=== PATIENT | male | born 1990 | race Caucasian/White ===

== ENCOUNTER 2018-12-22 21:16 | Emergency (ER) | payer OTHER ==
[2018-12-22 21:59] LABS: Absolute Lymphocytes (CBC) 0.9 K/uL (0.7-4.9); Absolute Monocytes 0.4 K/uL (0.1-1.3); Absolute Neutrophil 3.7 K/uL (1.8-8.0); Basophils % 0.2 % (0-1.3); Hematocrit 45.3 % (39.6-49.0); Monocytes % 7.2 % (3.3-12.3); RBC Red Blood Cell Count 5.31 M/uL (4.33-5.43)
[2018-12-22 22:00] LABS: Protime INR 1.13
[2018-12-22 22:17] LABS: ALT/SGPT 25 U/L (12-78); AST/SGOT 12 U/L (15-37); Albumin 4.1 g/dL (3.4-5.0); Alkaline Phosphatase 72 U/L (45-117); BUN Blood Urea Nitrogen 12 mg/dL (7-18); Bicarbonate 27 mmol/L (21-32); Bilirubin Direct 0.2 mg/dL (0-0.2); Bilirubin Total 0.5 mg/dL (0.2-1.0); Glucose Level 227 mg/dL (74-106); Magnesium 2.3 mg/dL (1.8-2.4); NT PRO-BNP 41 pg/mL (<125); Potassium 3.2 mmol/L (3.5-5.1); Protein, Total 7.1 g/dL (6.4-8.2); Sodium Level 140 mmol/L (136-145); Troponin (Emerg Dept Use Only) < 0.02 ng/mL (0.0-0.045)
[2018-12-22] MEDS ORDERED: POTASSIUM CL SA 10 MEQ TAB PO ONE (23:15)
--- NOTE | 2018-12-23 02:10 | ER ---
Nurse's Notes [facility] Name: Ki Alexander Age: 28 yrs Sex: Male : 1990 Arrival Date: 12/22/2018 Time: 21:17 Bed 20 Private MD: Diagnosis: Chest pain, unspecified;Altered mental status, unspecified Presentation: 12/22 21:35 Presenting complaint: Patient states: "I have breathing difficulty that has been going jd3 on for awhile now, but I had a sudden right sided, sharp head pain about 20 min ago that made me dizzy and light headed. I don't remember how I got here, I have a history of seizures. My left arm also feels numb and I am having general weakness.". Transition of care: patient was not received from another setting of care. Onset of symptoms was December 22, 2018. Risk Assessment: Do you want to hurt yourself or someone else? Patient reports no desire to harm self or others. Initial Sepsis Screen: Does the patient meet any 2 criteria? No. Patient's initial sepsis screen is negative. Does the patient have a suspected source of infection? No. Patient's initial sepsis screen is negative. Care prior to arrival: None. 21:35 Method Of Arrival: Wheelchair jd3 21:35 Acuity: ELYSE 3 jd3 Triage Assessment: 22:39 Respiratory: the patient has mild shortness of breath. jd3 Historical: - Allergies: 21:40 Clarithromycin; jd3 21:40 Latex, Natural Rubber; jd3 21:40 Keflex; jd3 - Home Meds: 21:40 aspirin 325 mg Oral tab 1 tab once daily [Active]; Depakote 500 mg Oral TbEC once daily jd3 [Active]; metoprolol tartrate 100 mg Oral tab [Active]; - PMHx: 21:40 Anxiety; mild asthma; Seizures; tetralogy of fallot; TIA; pulmonary valve insuff; jd3 HYPOGLYCEMIA; Bipolar disorder; Arthritis; - PSHx: 21:40 left knee surgery; open heart surgery; pacemaker; right foot surgery; Toni pulmonary jd3 artery stents; - Immunization history:: Adult Immunizations up to date. - Social history:: Smoking status: Patient/guardian denies using tobacco, but has a distant history of tobacco abuse. - Ebola Screening: : Patient negative for fever greater than or equal to 101.5 degrees Fahrenheit, and additional compatible Ebola Virus Disease symptoms. Screenin:52 Abuse screen: Denies threats or abuse. Denies injuries from another. Nutritional ed1 screening: No deficits noted. Tuberculosis screening: No symptoms or risk factors identified. Fall Risk None identified. Assessment: 21:52 General: Appears uncomfortable, Behavior is calm, cooperative. Pain: Complains of pain ed1 in chest Pain does not radiate. Pain currently is 3 out of 10 on a pain scale. Quality of pain is described as aching, Pain began 2-3 days ago. Is continuous. Neuro: Level of Consciousness is awake, alert, obeys commands, Oriented to person, place, time, situation, Seizure activity reported prior to arrival. Cardiovascular: Heart tones present Rhythm is regular. Respiratory: Reports shortness of breath cough that is Airway is patent Respiratory effort is even, unlabored, Respiratory pattern is regular, symmetrical, Breath sounds are clear bilaterally. GI: No signs and/or symptoms were reported involving the gastrointestinal system. : No signs and/or symptoms were reported regarding the genitourinary system. EENT: No signs and/or symptoms were reported regarding the EENT system. Derm: Skin is intact, is healthy with good turgor, Skin is dry, Skin is normal, Skin temperature is warm. Musculoskeletal: Circulation, motion, and sensation intact. 22:38 Reassessment: Patient appears in no apparent distress at this time. No changes from jd3 previously documented assessment. Patient and/or family updated on plan of care and expected duration. Pain level reassessed. Patient is alert, oriented x 3, equal unlabored respirations, skin warm/dry/pink. 22:58 Reassessment: Patient appears in no apparent distress at this time. No changes from jd3 previously documented assessment. Patient and/or family updated on plan of care and expected duration. Pain level reassessed. Patient is alert, oriented x 3, equal unlabored respirations, skin warm/dry/pink. 12/23 00:42 Reassessment: Patient appears in no apparent distress at this time. Patient and/or jd3 family updated on plan of care and expected duration. Pain level reassessed. Patient is alert, oriented x 3, equal unlabored respirations, skin warm/dry/pink. 01:24 Reassessment: Patient appears in no apparent distress at this time. Patient and/or d3 family updated on plan of care and expected duration. Pain level reassessed. Patient is alert, oriented x 3, equal unlabored respirations, skin warm/dry/pink. 03:01 Reassessment: Patient appears in no apparent distress at this time. Patient and/or jd3 family updated on plan of care and expected duration. Pain level reassessed. Patient is alert, oriented x 3, equal unlabored respirations, skin warm/dry/pink. report given to EMS for transfer. Vital Signs: 12/22 21:40 BP 141 / 85; Pulse 100; Resp 18 S; Temp 99.1(O); Pulse Ox 100% on R/A; Weight 68.04 kg [facility] (R); Height 5 ft. 8 in. (172.72 cm) (R); Pain 3/10; 22:38 BP 117 / 77; Pulse 83; Resp 16 S; Pulse Ox 99% on R/A; jd3 22:57 BP 117 / 77; Pulse 74; Resp 16 S; Pulse Ox 97% on R/A; jd3 23:49 BP 122 / 67; Pulse 67; Resp 16 S; Pulse Ox 99% on R/A; jd3 03/ 00:42 BP 115 / 71; Pulse 72; Resp 15 S; Pulse Ox 99% on R/A; jd3 01:24 BP 119 / 79; Pulse 80; Resp 18 S; Pulse Ox 99% on R/A; jd3 02:25 BP 108 / 68; Pulse 65; Resp 15 S; Pulse Ox 100% on R/A; jd3 03 21:40 Body Mass Index 22.81 (68.04 kg, 172.72 cm) [facility] ED Course: 12/22 21:17 Patient arrived in ED. am2 21:22 Carley Adames FNP is PHCP. nh 21:22 Alvino Nichols MD is Attending Physician. nh 21:28 Adeola Jerry, RN is Primary Nurse. ed1 21:38 Triage completed. jd3 21:41 Arm band placed on. jd3 21:52 Patient has correct armband on for positive identification. Bed in low position. Call ed1 light in reach. Side rails up X2. Pulse ox on. NIBP on. 21:52 Initial lab(s) drawn, by me, sent to lab. Inserted saline lock: 20 gauge in right ed1 forearm, using aseptic technique. 21:59 Primary Nurse role handed off by Adeola Jerry, JANETT ed1 22:10 Maninder Camilo, RN is Primary Nurse. jd3 22:14 X-ray completed. Portable x-ray completed in exam room. Patient tolerated procedure mh1 well. 22:14 XRAY Chest (1 view) In Process Unspecified. EDMS 22:[address] kc3 22:39 CT completed. Patient tolerated procedure well. kc3 22:47 CT Head Brain wo Cont In Process Unspecified. EDMS 03/02 02:26 No provider procedures requiring assistance completed. Patient transferred, IV remains jd3 in place. Administered Medications: 12/22 23:07 Drug: Potassium Chloride 40 mEq Route: PO; jd3 12/23 00:05 Follow up: Response: No adverse reaction jd3 Outcome: 02:09 ER care complete, transfer ordered by . ca 03:09 Transferred by ground EMS to [facility], Transfer form completed. jd3 X-rays sent w/ patient. 03:09 Condition: stable 03:09 Instructed on the need for transfer, Demonstrated understanding of instructions. 03:10 Patient left the ED. jd3 Signatures: Dispatcher [employer] EDPA Carley Adames, SUPERINTENDENT RECREATION SUPERINTENDENT RECREATION ca Veronica Sarmiento 1 Adeola Jerry, JANETT RN ed1 Genoveva Malave [facility] Maninder Camilo RN RN jd3 Gardenia Cote 3
--- NOTE | 2018-12-23 02:10 | EDPHYS ---
Physician Documentation [facility] Name: Ki Alexander Age: 28 yrs Sex: Male : 1990 Arrival Date: 12/22/2018 Time: 21:17 Bed 20 Private MD: ED Physician Alvino Nichols HPI: 12/23 02:05 This 28 yrs old Male presents to ER via Wheelchair with complaints of nh Breathing Difficulty. 02:05 The patient has shortness of breath at rest. Onset: The symptoms/episode began/occurred nh gradually, at an unknown time. Duration: The symptoms are chronic. The patient's shortness of breath has no apparent modifying factors. Associated signs and symptoms: The patient has no apparent associated signs or symptoms. Patient has hx of heart murmur. States that he has chest pain and shortness of breath. Also has history of stroke and seizure. States that he is confused and does not know how he got here. Historical: - Allergies: 12/22 21:40 Clarithromycin; jd3 21:40 Latex, Natural Rubber; jd3 21:40 Keflex; jd3 - Home Meds: 21:40 aspirin 325 mg Oral tab 1 tab once daily [Active]; Depakote 500 mg Oral TbEC once daily jd3 [Active]; metoprolol tartrate 100 mg Oral tab [Active]; - PMHx: 21:40 Anxiety; mild asthma; Seizures; tetralogy of fallot; TIA; pulmonary valve insuff; jd3 HYPOGLYCEMIA; Bipolar disorder; Arthritis; - PSHx: 21:40 left knee surgery; open heart surgery; pacemaker; right foot surgery; Toni pulmonary jd3 artery stents; - Immunization history:: Adult Immunizations up to date. - Social history:: Smoking status: Patient/guardian denies using tobacco, but has a distant history of tobacco abuse. - Ebola Screening: : Patient negative for fever greater than or equal to 101.5 degrees Fahrenheit, and additional compatible Ebola Virus Disease symptoms. ROS: 12/23 02:05 Constitutional: Negative for fever, chills, and weight loss, Eyes: Negative for injury, nh pain, redness, and discharge, ENT: Negative for injury, pain, and discharge, Neck: Negative for injury, pain, and swelling, Cardiovascular: Negative for chest pain, palpitations, and edema, Abdomen/GI: Negative for abdominal pain, nausea, vomiting, diarrhea, and constipation, Back: Negative for injury and pain, : Negative for injury, bleeding, discharge, and swelling, MS/Extremity: Negative for injury and deformity, Skin: Negative for injury, rash, and discoloration. Respiratory: Positive for shortness of breath, at rest. Neuro: Positive for altered mental status, dizziness, speech changes. Exam: 02:05 Constitutional: This is a well developed, well nourished patient who is awake, alert, nh and in no acute distress. Head/Face: Normocephalic, atraumatic. Eyes: Pupils equal round and reactive to light, extra-ocular motions intact. Lids and lashes normal. Conjunctiva and sclera are non-icteric and not injected. Cornea within normal limits. Periorbital areas with no swelling, redness, or edema. ENT: Nares patent. No nasal discharge, no septal abnormalities noted. Tympanic membranes are normal and external auditory canals are clear. Oropharynx with no redness, swelling, or masses, exudates, or evidence of obstruction, uvula midline. Mucous membranes moist. Neck: Trachea midline, no thyromegaly or masses palpated, and no cervical lymphadenopathy. Supple, full range of motion without nuchal rigidity, or vertebral point tenderness. No Meningismus. Chest/axilla: Normal chest wall appearance and motion. Nontender with no deformity. No lesions are appreciated. Respiratory: Lungs have equal breath sounds bilaterally, clear to auscultation and percussion. No rales, rhonchi or wheezes noted. No increased work of breathing, no retractions or nasal flaring. Abdomen/GI: Soft, non-tender, with normal bowel sounds. No distension or tympany. No guarding or rebound. No evidence of tenderness throughout. Back: No spinal tenderness. No costovertebral tenderness. Full range of motion. Skin: Warm, dry with normal turgor. Normal color with no rashes, no lesions, and no evidence of cellulitis. 02:05 Cardiovascular: Rate: normal, Rhythm: regular, Pulses: Heart sounds: murmur, systolic, grade 6 over 6, Edema: is not appreciated, JVD: is not appreciated. Vital Signs: 12/22 21:40 BP 141 / 85; Pulse 100; Resp 18 S; Temp 99.1(O); Pulse Ox 100% on R/A; Weight 68.04 kg jd3 (R); Height 5 ft. 8 in. (172.72 cm) (R); Pain 3/10; 22:38 BP 117 / 77; Pulse 83; Resp 16 S; Pulse Ox 99% on R/A; jd3 22:57 BP 117 / 77; Pulse 74; Resp 16 S; Pulse Ox 97% on R/A; jd3 23:49 BP 122 / 67; Pulse 67; Resp 16 S; Pulse Ox 99% on R/A; jd3 03/ 00:42 BP 115 / 71; Pulse 72; Resp 15 S; Pulse Ox 99% on R/A; jd3 01:24 BP 119 / 79; Pulse 80; Resp 18 S; Pulse Ox 99% on R/A; jd3 02:25 BP 108 / 68; Pulse 65; Resp 15 S; Pulse Ox 100% on R/A; jd3 12/22 21:40 Body Mass Index 22.81 (68.04 kg, 172.72 cm) [facility] MDM: 12/22 21:22 Patient medically screened. la 12/23 02:05 Data reviewed: vital signs, nurses notes, lab test result(s), radiologic studies, I la have discussed the patient's presentation/case with the attending Emergency Department Physician;. 12/22 21:37 Order name: Basic Metabolic Panel la 12/22 21:37 Order name: CBC with Diff la 12/22 21:37 Order name: LFT's la 12/22 21:37 Order name: Magnesium la 12/22 21:37 Order name: NT PRO-BNP la 12/22 21:37 Order name: PT-INR; Complete Time: 22:26 la 12/22 21:37 Order name: Troponin (emerg Dept Use Only); Complete Time: 22:26 la 12/22 21:37 Order name: XRAY Chest (1 view) la 12/22 21:38 Order name: Basic Metabolic Panel; Complete Time: 22:26 EDWI 12/22 21:38 Order name: CBC with Automated Diff; Complete Time: 22:26 EDWI 12/22 21:38 Order name: Liver (Hepatic) Function; Complete Time: 22:26 EDWI 12/22 21:38 Order name: Magnesium; Complete Time: 22:26 EDWI 12/22 21:38 Order name: NT PRO-BNP; Complete Time: 22:26 EDWI 12/22 22:25 Order name: CT Head Brain wo Cont la 12/22 21:37 Order name: EKG; Complete Time: 21:38 la 12/22 21:37 Order name: Cardiac monitoring; Complete Time: 22:10 la 12/22 21:37 Order name: EKG - Nurse/Tech; Complete Time: 22:10 la 12/22 21:37 Order name: IV Saline Lock; Complete Time: 21:55 la 12/22 21:37 Order name: Labs collected and sent; Complete Time: :55 la 12/22 21:37 Order name: O2 Per Protocol; Complete Time: :55 la 12/22 21:37 Order name: O2 Sat Monitoring; Complete Time: :55 la Administered Medications: 12/22 23:07 Drug: Potassium Chloride 40 mEq Route: PO; jd3 12/23 00:05 Follow up: Response: No adverse reaction jd3 Disposition: 12/23/18 02:[address] [facility]. Diagnosis are Chest pain, unspecified, Altered mental status, unspecified. - Reason for transfer: Higher level of care. - Accepting physician is [facility]. - Condition is Stable. - Problem is new. - Symptoms are unchanged. Addendum: 12/27/2018 11:27 Co-signature as Attending Physician, Alvino Nichols MD I agree with the assessment and c gil plan of care. Signatures: Dispatcher [employer] Alvino Chen MD MD cha Cronk, Niki, [employer] la Maninder Camilo RN RN jd3 Corrections: (The following items were deleted from the chart) 12/23 03:10 02:09 12/23/2018 02:[address] [facility]. Diagnosis is jd3 Chest pain, unspecified; Altered mental status, unspecified. Reason for transfer: Higher level of care. Accepting physician is [facility]. Condition is Stable. Problem is new. Symptoms are unchanged. nh
--- NOTE | 2018-12-24 10:13 | EKG ---
Test Date: 2018-12-22 Test Time: 22:05:19 Turbine Room Attendant: MATTI MEASUREMENT RESULTS: Intervals: Rate: 89 [place]: 148 QRSD: 160 QT: 398 QTc: 484 [place]: P: 29 [place]: 148 QRS: -39 T: 94 INTERPRETIVE STATEMENTS: Normal sinus rhythm with sinus arrhythmia Left axis deviation Right bundle branch block T wave abnormality, consider lateral ischemia Abnormal ECG Compared to ECG 05/10/2016 21:38:11 Left-axis deviation now present T-wave abnormality now present Possible ischemia now present Electronically Signed On 12-24-18 10:12:33 [employer] by Flaco Kessler
--- NOTE | 2018-12-25 11:00 | RAD REPORT ---
EXAM DESCRIPTION: RAD - Chest Single View - 12/22/2018 10:14 pm EXAM DESCRIPTION: Chest Single View CLINICAL HISTORY: 28 years Male, COUGH COMPARISON: None. FINDINGS: Cardiac pacer noted. No consolidation. No pneumothorax. No significant pleural effusion. Cardiac silhouette appears normal in size. Stents within the mediastinum are noted. Sternotomy changes are demonstrated. There is mild levocurvature of the upper thoracic spine. IMPRESSION: No acute findings. Electronically signed by: Josh Lange MD 12/23/2018 2:20 AM PROFESSIONAL BONDSMAN Due to temporary technical issues with the PACS/Fluency reporting system, reports are being signed by the in house radiologist as a courtesy to ensure prompt reporting. The interpreting radiologist is f ully responsible for the content of the report.
--- NOTE | 2018-12-25 11:02 | RAD REPORT ---
EXAM DESCRIPTION: CT - Head Brain Wo Cont - 12/22/2018 10:47 pm CLINICAL HISTORY: 28 years Male, CONFUSED TECHNIQUE: 5 mm axial images were obtained along with 3 mm reformatted coronal and sagittal images. This exam was performed according to our departmental dose-optimization program, which includes autom ated exposure control, adjustment of the mA and/or kV according to patient size and/or use of iterati ve reconstruction technique. COMPARISON: None. FINDINGS: No acute abnormal extracerebral fluid collections are demonstrated. The cortical sulci, ventricles, and cisterns are within normal limits. There are no areas of altered attenuation identified to suggest acute hemorrhage, infarction, or mass lesion. The visualized portions of the paranasal sinuses and mastoid air cells are clear. IMPRESSION: 1. Normal study. Electronically signed by: Praveen Pierce MD 12/22/2018 10:58 PM COAGULATING OPERATOR Due to temporary technical issues with the PACS/Fluency reporting system, reports are being signed by the in house radiologist as a courtesy to ensure prompt reporting. The interpreting radiologist is f ully responsible for the content of the report.
== END 2018-12-23 03:10 | disposition short-term general hospital (02) ==
LOC: ER 21:16
DX: R07.9 Chest pain, unspecified (principal); G40.909 Epilepsy, unspecified, not intractable, without status epilepticus; F41.9 Anxiety disorder, unspecified; F31.9 Bipolar disorder, unspecified; Q21.3 Tetralogy of Fallot; Z79.82 Long term (current) use of aspirin; Z86.73 Personal history of transient ischemic attack (TIA), and cerebral infarction without residual deficits; Z88.1 Allergy status to other antibiotic agents; Z88.3 Allergy status to other anti-infective agents; Z95.0 Presence of cardiac pacemaker; Z91.040 Latex allergy status; Z91.048 Other nonmedicinal substance allergy status; Z95.818 Presence of other cardiac implants and grafts
CPT/HCPCS: 36415; 70450; 71045; 80048; 80076; 83735; 83880; 84484; 85025; 85610; 93005; 99285

== ENCOUNTER 2021-11-23 18:34 | Emergency (ER) | payer OTHER ==
--- NOTE | 2021-11-23 19:08 | RAD REPORT ---
EXAM DESCRIPTION: CT - CTHCSPWOC - 11/23/2021 6:59 pm CLINICAL HISTORY: Trauma, head and neck injury. Seizure COMPARISON: No comparisons TECHNIQUE: Axial 5 mm thick images of the head were obtained. Axial 2 mm thick images of the cervical spine were obtained with sagittal and coronal reconstruction images generated and reviewed. All CT scans are performed using dose optimization technique as appropriate and may include automated exposure control or mA/KV adjustment according to patient size. FINDINGS: CT HEAD WITHOUT CONTRAST: No acute hemorrhage, hydrocephalus or extra-axial collection is identified.No areas of brain edema or midline shift. The paranasal sinuses and mastoids are clear.The calvarium is intact. CT CERVICAL SPINE WITHOUT CONTRAST: No fracture or subluxation.No prevertebral soft tissues swelling is identified. Pacemaker leads. Mild cervical spondylosis with scattered uncovertebral joint hypertrophy. Partially imaged cervicothoraci c scoliosis is present. IMPRESSION: No acute intracranial or cervical spine findings.
[2021-11-23 19:43] LABS: MPV 7.7 fL (7.6-11.3); RBC Red Blood Cell Count 4.97 M/uL (4.33-5.43)
[2021-11-23 21:09] LABS: BUN Blood Urea Nitrogen 13 mg/dL (7-18); Bicarbonate 28 mmol/L (21-32); Glucose Level 89 mg/dL (74-106); Potassium 4.5 mmol/L (3.5-5.1); Sodium Level 140 mmol/L (136-145)
[2021-11-23 21:19] LABS: Valproic Acid (Depakene) Level 16.2 ug/mL (50-100)
[2021-11-23] MEDS ORDERED: NA CHLORIDE 0.9% 100 ML ONE (21:44)
[2021-11-23] MEDS ORDERED: DIVALPROEX DR 250 MG TAB PO ONE (21:44)
[2021-11-23] MEDS ORDERED: VALPROATE NA 500 MG/5 ML INJ IV ONE (21:44)
--- NOTE | 2021-11-23 22:20 | EDPHYS ---
Physician Documentation [facility] Name: Ki Alexander Age: 31 yrs Sex: Male : 1990 Arrival Date: 11/23/2021 Time: 18:38 Bed 4 Private MD: ED Physician Bryson Martinez HPI: 11/23 19:10 This 31 yrs old Male presents to ER via EMS with complaints of Seizure. pm1 19:10 The patient presents after having a single isolated seizure, the episode(s) was pm1 witnessed, by family, , She caught him when he had a seizure and guided him to the ground. Character of seizure(s): Motor activity: generalized, shaking all over, Incontinence: none, Apnea: the patient did not experience apnea, Circulation: the patient did not experience evidence of pulse disturbance. Seizure onset: just prior to arrival. Context: occurred at home, occurred while the patient was standing, Contributing factors: decreased depakote intake for the past 1 week. Seizure Hx: Seizure medications: Depakote. Associated injury: The patient did not suffer any apparent associated injury. EMS care: none. Current symptoms: headache, that is mild. The patient has experienced similar episodes in the past, several times, with the last episode occurring many years ago. The patient has not recently seen a physician. Historical: - Allergies: 18:44 Clarithromycin; ph 18:44 Keflex; ph 18:44 Latex, Natural Rubber; ph - Home Meds: 18:44 Depakote 750 Oral TbEC 1 tab once daily [Active]; metoprolol tartrate 25 mg oral tab ph once daily [Active]; citalopram 10 mg tab 1 tab once daily [Active]; aspirin 81 mg Oral chew 1 tab once daily [Active]; - PMHx: 18:44 Anxiety; Arthritis; Bipolar disorder; HYPOGLYCEMIA; mild asthma; pulmonary valve ph insuff; Seizures; tetralogy of fallot; TIA; Glaucoma; - PSHx: 18:44 Heart sx; ph - Immunization history:: Adult Immunizations up to date. - Social history:: Smoking status: Patient denies any tobacco usage or history of. ROS: 19:10 Constitutional: Negative for fever, chills, and weight loss, Cardiovascular: Negative pm1 for chest pain, palpitations, and edema, Respiratory: Negative for shortness of breath, cough, wheezing, and pleuritic chest pain, Abdomen/GI: Negative for abdominal pain, nausea, vomiting, diarrhea, and constipation, MS/Extremity: Negative for injury and deformity, Skin: Negative for injury, rash, and discoloration. 19:10 Neuro: Positive for headache, seizure activity. 19:10 All other systems are negative. Exam: 19:10 Constitutional: This is a well developed, well nourished patient who is awake, alert, pm1 and in no acute distress. Head/Face: Normocephalic, atraumatic. Neck: Trachea midline, no thyromegaly or masses palpated, and no cervical lymphadenopathy. Supple, full range of motion without nuchal rigidity, or vertebral point tenderness. No Meningismus. 19:10 Skin: Warm, dry with normal turgor. Normal color with no rashes, no lesions, and no evidence of cellulitis. MS/ Extremity: Pulses equal, no cyanosis. Neurovascular intact. Full, normal range of motion. 19:10 Cardiovascular: Exam negative for acute changes, Rate: normal, Rhythm: regular, Pulses: no pulse deficits are appreciated, Heart sounds: normal, normal S1and S2. 19:10 Respiratory: Exam negative for acute changes, respiratory distress, shortness of breath, Breath sounds: are clear throughout. 19:10 Neuro: Exam negative for acute changes, Orientation: is normal, Mentation: is normal, Motor: is normal, moves all fours. Vital Signs: 18:40 BP 123 / 80; Pulse 72; Resp 18; Temp 97.6; Pulse Ox 100% on R/A; Weight 68.95 kg; ph Height 5 ft. 8 in. (172.72 cm); 23:15 BP 119 / 74; Pulse 68; Resp 17 S; Pulse Ox 100% on R/A; Pain 0/10; lg3 18:40 Body Mass Index 23.11 (68.95 kg, 172.72 cm) ph MDM: 18:42 Patient medically screened. pm1 22:17 Data reviewed: vital signs. Data interpreted: Pulse oximetry: on room air is 100 %. pm1 Interpretation: normal. Counseling: I had a detailed discussion with the patient and/or guardian regarding: the historical points, exam findings, and any diagnostic results supporting the discharge/admit diagnosis, lab results, radiology results, the need for outpatient follow up, a neurologist, to return to the emergency department if symptoms worsen or persist or if there are any questions or concerns that arise at home. 22:17 ED course: Patient's valproic acid level is below therapeutic level because he has been pm1 taking a lower than prescribed dose for the past 1 week. Patient is supposed to be taking 750 mg and he has been taking 500 mg . 11/23 18:48 Order name: Depakote; Complete Time: 21:27 pm1 11/23 18:48 Order name: CBC w/o diff; Complete Time: 19:53 pm1 11/23 18:48 Order name: CT Head C Spine; Complete Time: 19:10 pm1 11/23 18:48 Order name: BMP; Complete Time: 21:27 pm1 11/23 20:10 Order name: Glucose, Ancillary Testing; Complete Time: 20:11 EDMS 11/23 18:48 Order name: EKG; Complete Time: 18:49 pm1 11/23 18:48 Order name: EKG - Nurse/Tech; Complete Time: 19:19 pm1 11/23 18:48 Order name: IV Saline Lock; Complete Time: 19:19 pm1 Administered Medications: 21:52 Drug: Depakote (divalproex) 500 mg Route: PO; sm5 23:17 Follow up: Response: No adverse reaction lg3 21:52 Drug: Valproic Acid 500 mg Route: IV; Rate: calculated rate; Infused Over: 60 mins; sm5 Site: left hand; 23:17 Follow up: IV Status: Completed infusion; IV Intake: 100ml lg3 23:17 Follow up: Response: No adverse reaction lg3 Disposition: 11/24 06:59 Co-signature as Attending Physician, Bryson Martinez MD I agree with the assessment and rn plan of care. Disposition Summary: 11/23/21 22:19 Discharge Ordered Location: Home pm1 Problem: new pm1 Symptoms: have improved pm1 Condition: Stable pm1 Diagnosis - Other seizures pm1 Followup: pm1 - With: Emergency Department - When: As needed - Reason: Worsening of condition Followup: pm1 - With: Private Physician - When: 2 - 3 days - Reason: Recheck today's complaints, Continuance of care, Re-evaluation by your physician Discharge Instructions: - Discharge Summary Sheet pm1 - Seizure, Adult pm1 Forms: - Medication Reconciliation Form pm1 - Thank You Letter pm1 - Antibiotic Education pm1 - Prescription Opioid Use pm1 Signatures: Dispatcher [employer] EDBryson Sequeira MD MD rn Hall, Patricia, RN RN ph Marinas, Patrick, NP BALANCE STAFF STAKER pm1 Keyonna Workman RN RN sm5 Aruna Ryan RN lg3
--- NOTE | 2021-11-23 22:20 | ER ---
Nurse's Notes [facility] Name: Ki Alexander Age: 31 yrs Sex: Male : 1990 Arrival Date: 11/23/2021 Time: 18:38 Bed 4 Private MD: Diagnosis: Other seizures Presentation: 11/23 18:40 Chief complaint: EMS states: Pt had a witnessed seizure, lasted approx 30 seconds, has ph hx of seizures, the last one was in 2019. Pt A\T\O upon EMS arrival VS WNL. Coronavirus screen: Vaccine status: Patient reports receiving the 2nd dose of the covid vaccine. Ebola Screen: No symptoms or risks identified at this time. Initial Sepsis Screen: Does the patient meet any 2 criteria? No. Patient's initial sepsis screen is negative. Does the patient have a suspected source of infection? No. Patient's initial sepsis screen is negative. Risk Assessment: Do you want to hurt yourself or someone else? Patient reports no desire to harm self or others. 18:40 Method Of Arrival: EMS: [facility] ph 18:40 Acuity: ELYSE 3 ph Historical: - Allergies: 18:44 Clarithromycin; ph 18:44 Keflex; ph 18:44 Latex, Natural Rubber; ph - Home Meds: 18:44 Depakote 750 Oral TbEC 1 tab once daily [Active]; metoprolol tartrate 25 mg oral tab ph once daily [Active]; citalopram 10 mg tab 1 tab once daily [Active]; aspirin 81 mg Oral chew 1 tab once daily [Active]; - PMHx: 18:44 Anxiety; Arthritis; Bipolar disorder; HYPOGLYCEMIA; mild asthma; pulmonary valve ph insuff; Seizures; tetralogy of fallot; TIA; Glaucoma; - PSHx: 18:44 Heart sx; ph - Immunization history:: Adult Immunizations up to date. - Social history:: Smoking status: Patient denies any tobacco usage or history of. Screenin:47 Abuse screen: Denies threats or abuse. Denies injuries from another. Nutritional ph screening: No deficits noted. Tuberculosis screening: No symptoms or risk factors identified. Fall Risk No fall in past 12 months (0 pts). Secondary diagnosis (15 points) seizures, IV access (20 points). Ambulatory Aid- None/Bed Rest/Nurse Assist (0 pts). Gait- Normal/Bed Rest/Wheelchair (0 pts) Mental Status- Oriented to own ability (0 pts). Total Trinidad Fall Scale indicates Low Risk Score (25-44 pts). Fall prevention measures have been instituted. Side Rails Up X 2 Placed close to Nursing Station Frequent Obs/Assesments occuring As available Patient and Family Educated on Fall Prevention Program and strategies. Assessment: 18:49 General: Appears in no apparent distress. comfortable, well groomed, Behavior is ph cooperative, appropriate for age, anxious, Denies fever, feeling ill. Pain: Complains of pain in head and neck. Neuro: Level of Consciousness is awake, alert, obeys commands, Oriented to person, place, time, situation, Seizure activity reported prior to arrival. Cardiovascular: Capillary refill < 3 seconds in bilateral fingers Patient's skin is warm and dry. Respiratory: Airway is patent Respiratory effort is even, unlabored, Respiratory pattern is regular, symmetrical. GI: No signs and/or symptoms were reported involving the gastrointestinal system. Derm: Skin is intact, is healthy with good turgor, Skin is pink, warm \T\ dry. Musculoskeletal: Circulation, motion, and sensation intact. Range of motion: intact in all extremities. Vital Signs: 18:40 BP 123 / 80; Pulse 72; Resp 18; Temp 97.6; Pulse Ox 100% on R/A; Weight 68.95 kg; ph Height 5 ft. 8 in. (172.72 cm); 23:15 BP 119 / 74; Pulse 68; Resp 17 S; Pulse Ox 100% on R/A; Pain 0/10; lg3 18:40 Body Mass Index 23.11 (68.95 kg, 172.72 cm) ph ED Course: 18:38 Patient arrived in ED. ss 18:40 Kendal Singh, JANETT is Primary Nurse. ph 18:42 Jeancarlos Herman NP is PHCP. pm1 18:42 Bryson Martinez MD is Attending Physician. pm1 18:44 Triage completed. ph 18:47 Arm band placed on Patient placed in an exam room, on a stretcher, on pulse oximetry. ph 18:48 Patient has correct armband on for positive identification. Bed in low position. Call ph light in reach. Side rails up X2. Pulse ox on. NIBP on. Door closed. Noise minimized. Warm blanket given. Verbal reassurance given. 18:59 CT Head C Spine In Process Unspecified. EDMS 19:18 Inserted saline lock: 20 gauge in left hand, using aseptic technique. Blood collected. [facility] 19:19 BMP Sent. 5 19:19 CBC w/o diff Sent. 5 19:19 Depakote Sent. 5 21:19 Primary Nurse role handed off by Kendal Singh RN mw2 21:21 rAuna Ryan, RN is Primary Nurse. lg3 23:16 No provider procedures requiring assistance completed. IV discontinued, intact, lg3 bleeding controlled, No redness/swelling at site. Pressure dressing applied. Administered Medications: 21:52 Drug: Depakote (divalproex) 500 mg Route: PO; 5 23:17 Follow up: Response: No adverse reaction 3 21:52 Drug: Valproic Acid 500 mg Route: IV; Rate: calculated rate; Infused Over: 60 mins; 5 Site: left hand; 23:17 Follow up: IV Status: Completed infusion; IV Intake: 100ml 3 23:17 Follow up: Response: No adverse reaction lg3 Intake: 23:17 IV: 100ml; Total: 100ml. lg3 Outcome: 22:19 Discharge ordered by MD. pm1 23:16 Discharged to home via wheelchair, with family. lg3 23:16 Condition: good 23:16 Discharge instructions given to patient, Instructed on discharge instructions, follow up and referral plans. 23:17 Patient left the ED. lg3 Signatures: Dispatcher [employer] EDMS Antonella Neumann RN RN Kendal Singh RN RN Jeancarlos Gonzalez, AUREA CHEMICAL CHECKER pm1 Sukumar Garcia 2 Aruna Ryan, JANETT RN lg3 Keyonna Wrokman, RN RN sm5
[2021-11-23 23:24] VITALS: TEMP 97.6; O2SAT 100
[2021-11-23 23:25] VITALS: BP 119/74
--- NOTE | 2021-11-24 08:15 | EKG ---
Test Date: 2021-11-23 Test Time: 19:13:26 Labor Gang Supervisor: DENIS MEASUREMENT RESULTS: Intervals: Rate: 59 AZ: 134 QRSD: 144 QT: 434 QTc: 429 [place]: P: 35 AZ: 134 QRS: 40 T: 122 INTERPRETIVE STATEMENTS: Poor data quality, interpretation may be adversely affected Sinus bradycardia with premature atrial complexes with aberrant conduction Right bundle branch block T wave abnormality, consider lateral ischemia Abnormal ECG Compared to ECG 12/22/2018 22:05:19 Atrial premature complex(es) now present Aberrant conduction of supraventricular beat(s) now present Sinus rhythm no longer present Sinus arrhythmia no longer present Left-axis deviation no longer present T-wave abnormality still present Possible ischemia still present Electronically Signed On 11-24-21 08:13:45 SCRAP METAL COLLECTOR by Flaco Kessler
--- NOTE | 2021-11-24 17:41 | EKG ---
Test Date: 2021-11-23 Test Time: 19:14:11 Restaurant Assistant Manager: DENIS MEASUREMENT RESULTS: Intervals: Rate: 62 MD: 138 QRSD: 144 QT: 438 QTc: 444 [place]: P: 22 MD: 138 QRS: 36 T: 85 INTERPRETIVE STATEMENTS: Normal sinus rhythm Right bundle branch block T wave abnormality, consider lateral ischemia Abnormal ECG Compared to ECG 11/23/2021 19:13:26 Sinus bradycardia no longer present Atrial premature complex(es) no longer present Aberrant conduction of supraventricular beat(s) no longer present T-wave abnormality still present Possible ischemia still present Electronically Signed On 11-24-21 17:40:23 COAT EXAMINER by Flaco Kessler
== END 2021-11-23 23:17 | disposition home or self-care (01) ==
LOC: ER 18:34
DX: G40.89 Other seizures (principal); Q21.3 Tetralogy of Fallot; H40.9 Unspecified glaucoma; F41.9 Anxiety disorder, unspecified; J45.909 Unspecified asthma, uncomplicated; F31.9 Bipolar disorder, unspecified; M19.90 Unspecified osteoarthritis, unspecified site; Z88.3 Allergy status to other anti-infective agents; Z91.014 Allergy to mammalian meats; Z86.73 Personal history of transient ischemic attack (TIA), and cerebral infarction without residual deficits
CPT/HCPCS: 36415; 70450; 72125; 80048; 80164; 82947; 85027; 93005; 96365; 99284

== ENCOUNTER 2022-06-12 16:33 | Emergency (ER) | payer OTHER ==
[2022-06-12] MEDS ORDERED: MORPHINE 4 MG/ML SYR ONE (18:33)
--- NOTE | 2022-06-12 18:56 | RAD REPORT ---
EXAM DESCRIPTION: RAD - Pelvis - 06/12/2022 6:17 pm CLINICAL HISTORY: PAIN fall COMPARISON: Hip Left 2 View dated 06/12/2022 TECHNIQUE: AP imaging of the pelvis was obtained. FINDINGS: No fracture of the bony pelvis. No fracture, dislocation or other acute hip joint finding. No significant SI joint findings. No soft tissue abnormality. IMPRESSION: Negative pelvis for acute or significant findings.
--- NOTE | 2022-06-12 18:57 | RAD REPORT ---
EXAM DESCRIPTION: RAD - Hip Left 2 View - 06/12/2022 6:17 pm CLINICAL HISTORY: PAIN COMPARISON: Pelvis dated 06/12/2022 FINDINGS: AP and frogleg views of the left hip were obtained. There is no fracture or dislocation. No acute or destructive bony process seen. No soft tissue abnormality. IMPRESSION: Negative left hip examination for acute or significant findings.
--- NOTE | 2022-06-12 19:21 | ER ---
Nurse's Notes [facility] Name: Ki Alexander Age: 32 yrs Sex: Male : 1990 Arrival Date: 06/12/2022 Time: 16:35 Bed 11 Private MD: Dusty Sequeira Diagnosis: Pain in left hip;Fall on same level, unspecified Presentation: 06/12 17:01 Chief complaint: Patient states: Pt reports he was walking his big dog outside by the 3 collar and felt his left hip pop out of socket causing him to fall to the ground, landing on his left hip which caused the hip to "pop back into place.". Coronavirus screen: Vaccine status: Patient reports receiving the 2nd dose of the covid vaccine. Client denies travel out of the [place] in the last 14 days. Ebola Screen: Patient negative for fever greater than or equal to 101.5 degrees Fahrenheit, and additional compatible Ebola Virus Disease symptoms Patient denies exposure to infectious person. Patient denies travel to an Ebola-affected area in the 21 days before illness onset. No symptoms or risks identified at this time. Initial Sepsis Screen: Does the patient meet any 2 criteria? No. Patient's initial sepsis screen is negative. Does the patient have a suspected source of infection? No. Patient's initial sepsis screen is negative. Risk Assessment: Do you want to hurt yourself or someone else? Patient reports no desire to harm self or others. Onset of symptoms was June 12, 2022 at 12:00. 17:01 Method Of Arrival: Ambulatory 3 17:01 Acuity: ELYSE 3 kb3 Triage Assessment: 17:07 General: Appears in no apparent distress. uncomfortable, Behavior is calm, cooperative. kb3 Pain: Complains of pain in left hip Pain does not radiate. Pain currently is 9 out of 10 on a pain scale. Quality of pain is described as sharp, Pain began suddenly. Historical: - Allergies: 17:05 Clarithromycin; kb3 17:05 Keflex; kb3 17:05 Latex, Natural Rubber; kb3 - Home Meds: 17:05 aspirin 81 mg Oral chew 1 tab once daily [Active]; citalopram 10 mg tab 1 tab once kb3 daily [Active]; Depakote 750 Oral TbEC 1 tab once daily [Active]; - PMHx: 17:05 Anxiety; Arthritis; Bipolar disorder; Glaucoma; HYPOGLYCEMIA; mild asthma; pulmonary kb3 valve insuff; Seizures; tetralogy of fallot; TIA; Bilateral hip dysplasia; - PSHx: 17:05 heart SX; kb3 - Immunization history:: Adult Immunizations up to date, Client reports receiving the 2nd dose of the Covid vaccine, Last tetanus immunization: up to date. - Social history:: Smoking status: Patient denies any tobacco usage or history of. Patient/guardian denies using alcohol, street drugs. Screenin:37 Abuse screen: Denies threats or abuse. Denies injuries from another. Nutritional iw screening: No deficits noted. Tuberculosis screening: No symptoms or risk factors identified. Fall Risk None identified. Fall in past 12 months (25 points). Assessment: 18:36 General: Appears in no apparent distress. Behavior is calm, cooperative. Pain: iw Complains of pain in left leg and left hip. Neuro: Onofre Agitation-Sedation Scale (RASS): 0 - Alert and Calm Level of Consciousness is awake, alert, obeys commands. Cardiovascular: Patient's skin is warm and dry. Respiratory: Respiratory effort is even, unlabored, Respiratory pattern is regular, symmetrical. Derm: Skin is intact, is healthy with good turgor. Musculoskeletal: Range of motion: intact in all extremities, Reports pain in left hip. Vital Signs: 17:01 BP 109 / 73; Pulse 91; Resp 18; Temp 98.3; Pulse Ox 100% ; Weight 66.68 kg; Height 5 kb3 ft. 7 in. (170.18 cm); Pain 8/10; 19:44 BP 107 / 71; Pulse 80; Resp 16; Pulse Ox 100% ; Pain 3/10; kb3 17:01 Body Mass Index 23.02 (66.68 kg, 170.18 cm) kb3 ED Course: 16:35 Patient arrived in ED. am2 16:35 Dusty Sequeira MD is Private Physician. am2 16:42 Alvino Thomson PA is PHCP. cp 16:42 Carol Fang MD is Attending Physician. cp 17:05 Triage completed. kb3 17:07 Arm band placed on right wrist. kb3 17:47 Kim Sanchez, JANETT is Primary Nurse. iw 18:19 XRAY Hip LEFT 2 view In Process Unspecified. EDMS 18:19 XRAY Pelvis In Process Unspecified. EDMS 18:37 Patient did not have IV access during this emergency room visit. iw 19:00 Patient has correct armband on for positive identification. kb3 19:00 No provider procedures requiring assistance completed. kb3 Administered Medications: 18:32 Drug: morphine 4 mg Route: IM; Site: right deltoid; iw 19:46 Follow up: Response: No adverse reaction; Pain is decreased kb3 Medication: 19:44 VIS not applicable for this client. kb3 Outcome: 19:00 Discharged to home via wheelchair, with crutches. kb3 19:00 Condition: stable 19:00 Discharge instructions given to patient, family, Instructed on discharge instructions, follow up and referral plans. medication usage, crutch walking, Demonstrated understanding of instructions, follow-up care, medications, crutch walking, Prescriptions given X 1. 19:21 Discharge ordered by . flako 19:46 Patient left the ED. kb3 Signatures: Dispatcher [employer] EDKim Saenz, RN RN iw Alvino Thomson, MANN PA Genoveva Mcghee am2 Brandy Segal, RN RN kb3 Corrections: (The following items were deleted from the chart) 17:07 17:05 Home Meds: metoprolol tartrate 25 mg Oral tab once daily; kb3 kb3
--- NOTE | 2022-06-12 19:22 | EDPHYS ---
Physician Documentation [facility] Name: Ki Alexander Age: 32 yrs Sex: Male : 1990 Arrival Date: 06/12/2022 Time: 16:35 Bed 11 Private MD: Dusty Sequeira ED Physician Carol Fang HPI: 06/12 18:00 This 32 yrs old Male presents to ER via Ambulatory with complaints of Fall Injury, Hip cp Pain. 18:00 The patient or guardian reports an injury, pain. cp 18:00 that occurred at home, sustained from a fall, There is no obvious deformity, The cp patient is able to ambulate with assistance. The complaints affect the left hip. Onset: The symptoms/episode began/occurred just prior to arrival. Associated signs and symptoms: Loss of consciousness: the patient experienced no loss of consciousness, Pertinent negatives: abdominal pain, lower back pain. 18:00 Patient reports while stopping dogs from fighting, fell to ground and landed on left cp hip. Reports history of chronic left hip. Historical: - Allergies: 17:05 Clarithromycin; kb3 17:05 Keflex; kb3 17:05 Latex, Natural Rubber; kb3 - Home Meds: 17:05 aspirin 81 mg Oral chew 1 tab once daily [Active]; citalopram 10 mg tab 1 tab once kb3 daily [Active]; Depakote 750 Oral TbEC 1 tab once daily [Active]; - PMHx: 17:05 Anxiety; Arthritis; Bipolar disorder; Glaucoma; HYPOGLYCEMIA; mild asthma; pulmonary kb3 valve insuff; Seizures; tetralogy of fallot; TIA; Bilateral hip dysplasia; - PSHx: 17:05 heart SX; kb3 - Immunization history:: Adult Immunizations up to date, Client reports receiving the 2nd dose of the Covid vaccine, Last tetanus immunization: up to date. - Social history:: Smoking status: Patient denies any tobacco usage or history of. Patient/guardian denies using alcohol, street drugs. ROS: 18:05 Constitutional: Negative for body aches, chills, fever, poor PO intake. cp 18:05 Eyes: Negative for injury, pain, redness, and discharge. cp 18:05 Neck: Negative for pain with movement, pain at rest, stiffness. 18:05 Respiratory: Negative for cough, shortness of breath, wheezing. 18:05 Abdomen/GI: Negative for abdominal pain, nausea, vomiting, and diarrhea. 18:05 Back: Negative for pain at rest, pain with movement. 18:05 MS/extremity: Positive for pain, tenderness, of the left hip, Negative for decreased range of motion, deformity, paresthesias. 18:05 Neuro: Negative for altered mental status, headache, weakness. 18:05 All other systems are negative. Exam: 18:10 Constitutional: The patient appears in no acute distress, alert, awake, non-toxic, well cp developed, well nourished, uncomfortable. 18:10 Head/Face: Normocephalic, atraumatic. cp 18:10 Eyes: Periorbital structures: appear normal, Conjunctiva: normal, no exudate, no cp injection, Sclera: no appreciated abnormality, Lids and lashes: appear normal, bilaterally. 18:10 ENT: External ear(s): are unremarkable, Nose: is normal, Mouth: Lips: moist, Oral cp mucosa: moist, Posterior pharynx: Airway: no evidence of obstruction, patent. 18:10 Neck: ROM/movement: is normal, is supple, without pain, no range of motions limitations. 18:10 Chest/axilla: Inspection: normal, Palpation: is normal, no crepitus, no tenderness. 18:10 Cardiovascular: Rate: normal, Rhythm: regular. 18:10 Respiratory: the patient does not display signs of respiratory distress, Respirations: normal, no use of accessory muscles, no retractions, labored breathing, is not present, Breath sounds: are clear throughout, no decreased breath sounds, no stridor, no wheezing. 18:10 Abdomen/GI: Inspection: abdomen appears normal, Palpation: abdomen is soft and non-tender, in all quadrants. 18:10 Back: pain, is absent, ROM is normal. 18:10 Musculoskeletal/extremity: Extremities: noted in the left hip: pain, tenderness, There is no evidence of decreased ROM, deformity, ROM: limited passive range of motion due to pain, in the left hip, Perfusion: the extremity is normally perfused throughout, the left hip Severe pain noted. 18:10 Neuro: Orientation: to person, place \T\ time. Mentation: is normal. Vital Signs: 17:01 BP 109 / 73; Pulse 91; Resp 18; Temp 98.3; Pulse Ox 100% ; Weight 66.68 kg; Height 5 kb3 ft. 7 in. (170.18 cm); Pain 8/10; 19:44 BP 107 / 71; Pulse 80; Resp 16; Pulse Ox 100% ; Pain 3/10; kb3 17:01 Body Mass Index 23.02 (66.68 kg, 170.18 cm) kb3 MDM: 17:33 Patient medically screened. cp 19:20 Data reviewed: vital signs, nurses notes, radiologic studies, plain films. cp 19:20 Differential diagnosis: intertrochanteric fracture, femoral neck fracture, femoral cp shaft fracture, contusion, dislocation. Test interpretation: by ED physician or midlevel provider: plain radiologic studies. Counseling: I had a detailed discussion with the patient and/or guardian regarding: the historical points, exam findings, and any diagnostic results supporting the discharge/admit diagnosis, radiology results, to return to the emergency department if symptoms worsen or persist or if there are any questions or concerns that arise at home. Response to treatment: the patient's symptoms have markedly improved after treatment, and as a result, I will discharge patient. 06/12 17:51 Order name: XRAY Hip LEFT 2 view; Complete Time: 19:06 cp 06/12 17:51 Order name: XRAY Pelvis; Complete Time: 19:06 cp 06/12 19:06 Interpretation: Report reviewed. 06/12 19:07 Order name: Crutches; Complete Time: 19:44 cp Administered Medications: 18:32 Drug: morphine 4 mg Route: IM; Site: right deltoid; iw 19:46 Follow up: Response: No adverse reaction; Pain is decreased kb3 Disposition: 06/13 19:06 STAFF ATTESTATION STATEMENT: I was immediately available onsite in the emergency sd2 department for consultation in the care of this patient. I did not see or examine this patient. Carol Fang MD. Disposition Summary: 06/12/22 19:21 Discharge Ordered Location: Home cp Problem: an ongoing problem cp Symptoms: have improved cp Condition: Stable cp Diagnosis - Pain in left hip cp - Fall on same level, unspecified cp Followup: cp - With: Private Physician - When: 2 - 3 days - Reason: Recheck today's complaints Discharge Instructions: - Discharge Summary Sheet cp - Arthritis cp - Hip Pain cp Forms: - Medication Reconciliation Form cp - Thank You Letter cp - Antibiotic Education cp - Prescription Opioid Use cp Prescriptions: - Diclofenac Sodium 75 mg Oral Tablet Sustained Release - take 1 tablet by ORAL route 2 times per day; 30 tablet; Refills: 0, Product cp Selection Permitted Signatures: Dispatcher [employer] Kim Gonzales RN RN iw Alvino Thomson PA PA cp Dunlop, Stephanie, MD MD sd2 Brandy Segal RN RN kb3 Corrections: (The following items were deleted from the chart) 06/12 17:07 17:05 Home Meds: metoprolol tartrate 25 mg Oral tab once daily; kb3 kb3
[2022-06-12 22:37] VITALS: TEMP 98.3; O2SAT 100
[2022-06-12 22:40] VITALS: BP 107/71
== END 2022-06-12 19:46 | disposition home or self-care (01) ==
LOC: ER 16:33
DX: M25.552 Pain in left hip (principal); W18.30XA Fall on same level, unspecified, initial encounter; F31.9 Bipolar disorder, unspecified; Z79.82 Long term (current) use of aspirin; Z88.1 Allergy status to other antibiotic agents; Z88.3 Allergy status to other anti-infective agents; Z91.040 Latex allergy status; Z91.048 Other nonmedicinal substance allergy status
CPT/HCPCS: 72170; 96372; 99284

== ENCOUNTER 2022-11-27 16:07 | Emergency (ER) | payer OTHER ==
--- OUTSIDE RECORDS SUMMARY | 2022-11-27 16:22 | XMS REPORT | Continuity of Care Document ---
:1990 [facility] t Address [address] [place] [address] Care Team Providers Name Role Phone HELADIO TIM LOVE Primary Care Physician Unavailable MICHAEL ANDERSON Attending Clinician Unavailable JENNIFER RIOS Attending Clinician Unavailable KENNEY MONTANA Attending Clinician Unavailable MIRACLE MORALES Attending Clinician Unavailable Lab, Ang - Db Attending Clinician Unavailable Miracle Morales MD Attending Clinician ELAINE JOHNSON Attending Clinician Unavailable Génesis Youngblood PTA Attending Clinician Unavailable Elaine Johnson MD Attending Clinician ESTELA BIRD Attending Clinician Unavailable Francoise ALANIZ, Estela Attending Clinician KENNEY LING III Attending Clinician Unavailable King LORETA MD, James C Attending Clinician Unknown, Attending Attending Clinician Unavailable Jason DEATH CLAIM EXAMINER, Ramon F Attending Clinician Unavailable CHECO CABALLERO Attending Clinician Unavailable Saman PT, Mala Parr Attending Clinician Unavailable Michael Anderson MD Attending Clinician Kenney [place] MD Attending Clinician SHANTE KAYE Attending Clinician Unavailable Shante Hyatt Attending Clinician Doctor Unassigned, [place] Attending Clinician Unavailable Fariba Tong MD Attending Clinician Marvin RN, Ro Attending Clinician Unavailable Only, Lcc Test Attending Clinician Unavailable Lexie Mclaughlin Attending Clinician Mirna Fowler PT Attending Clinician Unavailable Pob, Adc Lab Main Attending Clinician Unavailable LEXIE SRIVASTAVA Attending Clinician Unavailable BHAVIN ISIDRO Attending Clinician Unavailable Nurse, [facility] Attending Clinician Unavailable Gina Terry PA-C Attending Clinician GINA TERRY Attending Clinician Unavailable GENOVEVA LECHUGA Attending Clinician Unavailable WESLEY MACIAS Attending Clinician Unavailable Wesley Macias MD Attending Clinician [facility] Attending Clinician Unavailable Checo Caballero MD Attending Clinician UNKNOWN, ATTENDING Attending Clinician Unavailable Chelsea Zarate Attending Clinician CHELSEA LUO Attending Clinician Unavailable Provider, [facility] Attending Clinician Unavailable Genoveva Lechuga MD Attending Clinician MAGDIEL VEGA Attending Clinician Unavailable Magdiel Vega PA-C Attending Clinician Jennifer Rios DO Attending Clinician Ok Mcfadden OT Attending Clinician Unavailable Aristides FISHER, Catalina Shen Attending Clinician CATALINA IRVING Attending Clinician Unavailable Saul FISHER, Bo Attending Clinician 1.5, [facility] Adithya Sánchez Attending Clinician Unavailable BO VILLAFUERTE Attending Clinician Unavailable BO VILLAFUERTE Attending Clinician Unavailable Darell ROWLAND, Mei Gabriel Attending Clinician Unavailable KAYLEIGH DIAZ Attending Clinician Unavailable Joe MODELING ANALYST, Kayleigh Attending Clinician Natalio Clark MD Attending Clinician NATALIO CLARK Attending Clinician Unavailable Leilani Cardona Attending Clinician Provider, [facility] Attending Clinician Unavailable LEILANI ADLER Attending Clinician Unavailable MICHAEL CORTEZ Attending Clinician Unavailable Mark FISHER, Marlon Attending Clinician Michael Cortez MD Attending Clinician Delia Naranjo MD Attending Clinician Bo Villafuerte MD Attending Clinician Margie [place] Attending Clinician Nurse, [facility] Attending Clinician Unavailable Oskar Soto DO Attending Clinician KYLAH SANDERS Attending Clinician Unavailable PATRIZIA GRAY Attending Clinician Unavailable Patrizia Gray DO Attending Clinician Lab, [facility] Fam Pob I Attending Clinician Unavailable Maddie Trejo Attending Clinician Froylan Chapman MD Attending Clinician RICARDO CHESTER Attending Clinician Unavailable Nemo FISHER PHD, Ricardo Diaz Attending Clinician [phone] Fuentes Marie Attending Clinician Therapist, [facility] Respiratory Attending Clinician Unavailable Jesus Alberto Berrios Attending Clinician KLAUS BARRERA Attending Clinician Unavailable USHA CHEUNG Attending Clinician Unavailable MICHAEL ANDERSON Admitting Clinician Unavailable Michael Anderson MD Admitting Clinician CHELSEA LUO Admitting Clinician Unavailable PATRIZIA GRAY Admitting Clinician Unavailable FRANSISCO DE LA TORRE CLAYTONKENISHA Admitting Clinician Unavail able USHA CHEUNG Admitting Clinician Unavailable Payers Payer Name Policy Type Policy Number Effective Date Expiration Date S paola [facility] [id number] 2016 PLUS 00:00:00 COMMUNITY PLAN [id number] 2017 [facility] 00:00:00 BEHAVIORAL HEALTH [id number] [facility]-MEDICAID - [id number] 2017 MEDICAID 00:00:00 [facility] [id number] [facility] [id number] HMO/POS/EPO/PPO - AETNA PPO/EPO - BCBS [id number] [facility] [id number] [facility] [id number] Problems Condition Condition Condition Status Onset Resolution Last Treating Co mments Source Name Details Category Date Date Treatment Clinician Date PPD PPD Disease Active Overview: Univer s positive positive 2-03 Formattin ity of 00:00: g of this note Medical might be Branch different from the original. Formattin g of this note might be different from the original. no treatment ? Status Status Disease Active 2021-10 Univers post total post total 2-30 it y of [place]ac[place] t of left 00 Medi michelle hip hip Branch Left leg Left leg Disease Active 2021-10 Unive rs weakness weakness 2-30 ity of 00:00: Medical Branch Leukopenia Leukopenia Disease Active U nivers 9-04 ity of 00:00: Medical Branch Left-sided Left-sided Disease Active U nivers weakness weakness 1-14 ity of 00:00: 00 Medical Branch Stroke Stroke Disease Active Univers 1-14 ity of 00:00: Medical Branch Decreased Decreased Disease Active Uni vers functional functional 1-14 it y of mobility mobility 00:00: [place] and Medical endurance endurance Bran ch Cerebrovas Cerebrovas Disease Active U nivers cular cular 1-11 ity of accident accident 00:00: [place] (CVA), (CVA), 00 Medical unspecifie unspecifie Br anch d d mechanism mechanism Left-sided Left-sided Disease Active U nivers muscle muscle 1-11 ity of weakness weakness 00:00: [place] 00 Medical Branch Decreased Decreased Disease Active Uni vers activities activities 1-11 it y of of daily of daily 00:00: [place] living living 00 Medical (ADL) (ADL) Branch Laceration Laceration Disease Active U nivers of deep of deep 5-06 ity of palmar palmar 00:00: [place] arch of arch of 00 Medical right right Branch hand, hand, initial initial encounter encounter Cellulitis Cellulitis Disease Active U nivers of palm of of palm of 5-06 it y of hand hand 00:00: [place] [facility] Febrile Febrile Disease Active 2018-10 Univers illness illness 0-26 ity of 00:00: [place] [facility] Pulmonary Pulmonary Disease Active [facility] regurgitat regurgitat 4-04 Jasmina kes ion ion 00:00: Medical 00 Center Light Light Disease Active [facility] headed headed 4-04 [facility] Center Dyspnea on Dyspnea on Disease Active [facility] exertion exertion 3-02 [facility] 00:[facility]: Medical 00 [place] Seizure Seizure Disease Active [facility] 3[facility]02 [facility] 00[facility] Medical [facility] Center Pacemaker Pacemaker Disease Active Uni vers at end of at end of 8-21 ity of battery battery 00:00: [place] life life Medical Branch TIA TIA Disease Active [facility] (transient (transient 4-05 Co llege ischemic ischemic 00:00: of attack) attack) 00 Medicin e Near Near Disease Active Univers syncope syncope 3-24 ity of 00:00: [place] [facility] Murmur, Murmur, Disease Active Univers cardiac cardiac 1-09 ity of 00:00: [place] 00 Medical Branch Depression Depression Disease Active 2014-10 U nivers 2-11 ity of 00:00: [place] [facility] Epilepsy Epilepsy Disease Active 2014-10 Unive rs 2-11 ity of 00:00: [place] 00 Medical Branch Recurrent Recurrent Disease Active 2014-10 Uni vers seizures seizures 2-11 ity of 00:00: [place] 00 Medical Branch Former Former Disease Active 2014-10 Univers smoker smoker 2-11 ity of 00:00: [place] [facility] Osteoarthr Osteoarthr Disease Active 2014-10 U nivers itis itis 2-11 ity of 00:00: [place] [facility] Tetralogy Tetralogy Disease Active 2014-10 Uni vers of [place] of Fall[place] 2-11 ity of 00:00: [place] [facility] Bipolar 1 Bipolar 1 Disease Active 2014-10 Uni vers disorder disorder 2-08 ity of 00:00: [place] [facility] Mild Mild Disease Active 2014-10 Univers intermitte intermitte 2-08 it y of nt asthma nt asthma 00:00[place] Essential Essential Disease Active 2014-10 Uni vers hypertensi hypertensi 2-08 it y of on on 00:00: [place] [facility] H/O H/O Disease Active Overview: [facility] melanoma melanoma 03-03 [facility] lege excision excision 00:00: g of this of 00 note Medicin might be e different from the original. 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 Takes depakote Anaphylaxi Anaphylaxi Disease Active Overview : [facility] 05 [facility] 00:00: g of this of note Medicin might be e different from the original. Latex-Epi pen ASTHMA NOS ASTHMA NOS Disease Active Overview : [facility] 05 [facility] 00:00: g of this of note Medicin might be e different from the original. Last PFT's Dec 2009 show mild restricti ve defect only HX ALLERGY HX ALLERGY Disease Active Overview : [facility] TO INSECTS TO INSECTS 12-26 [facility] 00:00: g of this of note Medicin might be e different from the original. Wasp-stin g on 02/2015 given pred 20 mg x 5 days Presence Presence Disease Active Overview: Un mikayla of cardiac of cardiac 12-02 Formattin ity of pacemaker pacemaker 00:00: [place] note Medical might be Branch different from the original. Formattin g of this note might be different from the original. Dual chamber, placed 07/[address] [facility] for recurrent neurocard iogenic syncope-h as follow up at [facility], due for check Pulmonary Pulmonary Disease Active Overview: Univers valve valve 01-23 Form[facility] ity of disorders disorders 00:00: [place] 00 note Medical might be Branch different from the original. Formattin g of this note might be different from the original. RBBB 4Mild tricuspid regurgita tion, peak velocity of 2.5 meters per second. Upper mild pulmonary stenosis, peak velocity ~ 2.9 meters per second, mean gradient ~ 19 mm Hg. By doppler interroga tion, there is mild to moderate distal branch pulmonary artery stenosis, peak velocity ~ 3 and 2.3 meters per second in the right and left pulmonary artery respectiv thien. The branch pulmonary arteries are not seen well. Severe pulmonary regurgita tion . Unobstruc samuel aortic arch. Mildly dilated aortic root.Qual itatively mildly dilated right atrium. Tetralogy Tetralogy Disease Active Overview: [facility] of [place] of Fallot 4-18 Formattin C ollege 00:00: g of this of 00 note Medicin might be e different from the original. 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 ? Due to hip dysplasia History of History of Disease Active Overview : [facility] atrial atrial [facility] tachycardi tachycardi g of this of a a note Medicin might be e different from the original. Controlle d with pacemaker placement GERD GERD Disease Active [facility] (gastroeso (gastroeso Co llege phageal phageal of reflux reflux Medicin disease) disease) e Bronchitis Bronchitis Disease Resolve 2015-11-05 2015-11-05 [facility] d 1-09 00:00:00 19:43:47 ity of 00:00: [place] 00 Medical Branch URI (upper URI (upper Disease Resolve 2014-102015-11-05 2015-11-05 [facility] respirator respirator d 2-11 00:00:00 19:43:41 ity of y y 00:00: [place] infection) infection) 00 Me dical Branch Allergies, Adverse Reactions, Alerts Allergy Allergy Status Severity Reaction(s) Onset Inactive Treating Comm ents Source Name Type Date Date Clinician lorazepa DA Active U [facility] m 03-09 [place] 00:00: d 00 [facility] cephalex DA Active U 2020- [facility] in 03-09 [place] 00:00: d 00 [facility] lorazepa DA Active U HALLUCINATIO HC A m NS 03-09 [place] 00:00: d 00 [facility] cephalex DA Active U "PURPLE [facility] in DOTS" 03-09 [place] 00:[facility]: d [facility] Clarithr Propensi Active 2018-1 Pt does [facility] omycin ty to 0-23 not College adverse 00:00: remember. of reaction 00 He was in Medic in s to hospital e drug at the time. Clarithr Propensi Active Anaphylaxis 2019-0 Pt does Univers omycin ty to 05-30 not ity of adverse 00:00: remember. [place] reaction 00 He was in Medic al s hospital Branch at the time. CLARITHR DRUG Active Anaphylaxis 2019-0 Uni vers OMYCIN INGREDI 05-30 ity of 00:00: [place] 00 Medical Branch Lorazepa Drug Active Severe 2019-0 hallucina [facility] 12[facility] Medical 00 [place] Cephalex Drug Active Rash 2019-[address] in Allergy 12-21 [facility] 00:00: Medical 00 [place] Latex Propensi Active 2019-[address] ty to 12-21 [facility] adverse 00:00: Medical reaction 00 Center s LORAZEPA Allergy Active High 2019-0 [facility] M - 00:00: 00 LATEX Allergy Active 2019-0 [facility] -28 00:00: 00 CEPHALEX Allergy Active Low Rash 2019-0 [facility] IN - 00:00: 00 HYDROCOD Allergy Active Itching 2018-0 [facility] ONE 07-18 00:00: 00 Hydrocod Propensi Active Itching 2018-0 [facility] one ty to 07-18 [facility] adverse 00:00: Medical reaction 00 Center s Hydrocod Propensi Active Itching 2018-0 [facility] one ty to 25 [place] adverse 00:00: of reaction 00 Medicin s to e drug Lorazepa Propensi Active Hallucinatio 2016-0 [facility] m ty to ns 5-12 [place] adverse 00:00: of reaction 00 Medicin s to e drug Cephalex Propensi Active Rash 2014-10 [place] in ty to 08 College adverse 00:00: of reaction 00 Medicin s to e drug Cephalex Propensi Active Rash 2014-10 Univer s in ty to 12-01 ity of adverse 00:00: [place] reaction 00 Medical s Branch Cephalex Drug Active Rash 2014-10 [facility] in Allergy 12-01 ity of 00:00: [place] 00 Medical Branch LATEX DRUG Active Anaphylaxis 2014-10 Unive rs INGREDI 2-08 ity of 00:00: [place] 00 Medical Branch CEPHALEX DRUG Active Low Rash 2014- Univers IN INGREDI 12-01 ity of 00:00: [place] [facility] Latex Propensi Active Anaphylaxis 2014-10 Uni vers ty to 208 ity of adverse 00:00: [place] reaction 00 Medical s [place] lorazepa DA Active U HALLUCINATIO 2009-0 HC A m NS 4-15 [place] 00:00: d 00 [facility] Center cephalex DA Active U "PURPLE 2009-0 [facility] in DOTS" 4-15 [place] 00:00: d 00 [facility] Center lorazepa DA Active U 2009-0 [facility] m 4-15 [place] 00:00: d 00 [facility] cephalex DA Active U 2009-0 [facility] in 4-15 [place] 00:00: d 00 [facility] LATEX DA Active U ANAPHYLAXIS 2009- [facility] 4-15 [place] 00:00: d 00 [facility] TAPE DA Active U RASH,ITCHING 2009- [facility] 4-15 [place] 00:00: d 00 [facility] Ativan Propensi Active Hallucinatio 2008-0 Ba ylor ty to ns 4-15 [place] adverse 00:00: of reaction 00 Medicin s to e drug Lorazepa Propensi Active Hallucinatio 2008-0 Univers m ty to ns 4-15 ity of adverse 00:00: [place] reaction 00 [facility] Lorazepa Drug Active Hallucinatio 2008-0 hallucina Univers m Intolera ns 4-15 tion ity of nce 00:00: [place] 00 Medical [place] LORAZEPA DRUG Active High Hallucinates 2008- Un mikayla M INGREDI 4-15 ity of 00:00: [place] 00 Medical [place] No Known DA Active U 2008-0 [facility] Contrast 2- [place] Allergie 00:00: d s 00 [facility] No Known DA Active U 2008-0 [facility] Food 2- [place] Allergie 00:00: d s 00 [facility] Keflex Propensi Active Rash 2006- [facility] ty to 4-18 [place] adverse 00:00: of reaction 00 Medicin s to e drug Latex Propensi Active Anaphylaxis 2006- Anaphylax [facility] ty to 4-18 is [place] adverse 00:00: of reaction 00 Medicin s to e substanc e Social History Social Habit Start Date Stop Date Quantity Comments Source History SDOH [facility] Alcohol Std Drinks Medica l Center History SDOH [facility] Alcohol Binge Medical Risa ter History [facility] Alcohol Comment Medical C enter Exposure to 2022-11-16 2022-11-26 Not sure University SARS-CoV-2 (event) 00:00:00 14:15:00 [facility] Cigarettes smoked 2022-07-06 2022-07-06 [facility] current (pack per 00:00:00 00:00:00 Medicin e day) - Reported Cigarette 2022-07-06 2022-07-06 [facility] of pack-years 00:00:00 00:00:00 Medicine Tobacco Comment 2022-07-06 2022-07-06 quit in 2006 [facility] 00:00:00 00:00:00 Medicine Tobacco use and 2022-06-12 2022-06-12 Smokeless Universit y of exposure 00:00:00 00:00:00 tobacco non-user [facility] Alcohol intake 2019-01-25 2019-01-[address] [facility] 00:00:00 00:00:00 non-drinker of Medical Ce nter alcohol (finding) History [facility] 2018-12-22 2018-12-[address] [facility] Alcohol Frequency 00:00:00 00:00:00 [facility] History of tobacco 2006-10-26 Cigarette Smoker [facility] use 00:00:00 Medicine Sex [birth year] At [birth year] JANIE Colindres kes 00:00:00 00:00:00 [facility] Center Smoking Status Start Date Stop Date Source Ex-smoker 2022-06-12 00:00:00 2022-06-12 00:00:00 [facility] Medications Ordered Filled Start Stop Current Ordering Indication Dosage Frequency Signature Comments Components Source Medication Medication Date Date Medication? Clinician (SIG) Name Name traMADoL 50 2022- Yes [id number] 50mg Take 1 Uni vers mg tablet 11-26 tablet by ity of 00:00: 05:59 mouth [place] 00 :00 every 8 Medical (eight) Branch hours as needed for Pain (scale 7-10) for up to 7 days. Indication s: acute pain traMADoL 50 2022- Yes [id number] 50mg Take 1 Uni vers mg tablet 11-26 tablet by ity of 00:00: 05:59 mouth [place] 00 :00 every 8 Medical (eight) Branch hours as needed for Pain (scale 7-10) for up to 7 days. Indication s: acute pain traMADoL 50 2022- Yes [id number] 50mg Take 1 Uni vers mg tablet 11-26 tablet by ity of 00:00: 05:59 mouth [place] 00 :00 every 8 Medical (eight) Branch hours as needed for Pain (scale 7-10) for up to 7 days. Indication s: acute pain traMADoL 50 2022- Yes [id number] 50mg Take 1 Uni vers mg tablet 11-26 tablet by ity of 00:00: 05:59 mouth [place] 00 :00 every 8 Medical (eight) Branch hours as needed for Pain (scale 7-10) for up to 7 days. Indication s: acute pain ketorolac 2022- No 30mg 30 mg, Unive rs (TORADOL) 11-22 Intramuscu ity of injection 22:30: 21:57 [place], ONCE, [place] 30 mg 00 :00 1 dose, On Medical Mon Branch 11/22/22 at 1630, Routine methocarbam 2022- No 1000mg 1,000 mg, Univers oL 11-22 Oral, ity of (ROBAXIN) 21:45: 21:57 ONCE, 1 [place] tablet 00 :00 dose, On Medical 1,000 mg [facility] Branch 11/22/22 at 1545, LUZ MARIA dexamethaso 2022- No 10mg 10 mg, Uni vers ne sod phos 11-22 Intramuscu i ty of PF 21:45: 21:56 lar, ONCE, [place] injection 00 :00 1 dose, On Medi michelle 10 mg [facility] Branch 11/22/22 at 1545, 1 mL ketorolac 2022- Yes [id number] 10mg Take 1 Univers 10 mg 11-22 tablet by ity of tablet 00:00: 05:59 mouth [place] 00 :00 every 6 Medical (six) Branch hours for 5 days. predniSONE 2022- Yes [id number] 40mg Take 2 Univers 20 mg 11-22 tablets by ity of tablet 00:00: 05:59 mouth in [place] 00 :00 the Medical morning Branch for 5 days. ketorolac 2022-0 2022- Yes [id number] 10mg Take 1 Univers 10 mg 1-30 02-05 tablet by ity of tablet 00:00: 05:59 mouth [place] 00 :00 every 6 Medical (six) Branch hours for 5 days. predniSONE 2022-0 2022- Yes [id number] 40mg Take 2 Univers 20 mg 1-30 02-05 tablets by ity of tablet 00:00: 05:59 mouth in [place] 00 :00 the Medical morning Branch for 5 days. ketorolac 2022-0 2022- Yes [id number] 10mg Take 1 Univers 10 mg 1-30 02-05 tablet by ity of tablet 00:00: 05:59 mouth [place] 00 :00 every 6 Medical (six) Branch hours for 5 days. predniSONE 2022-0 2022- Yes [id number] 40mg Take 2 Univers 20 mg 1-30 02-05 tablets by ity of tablet 00:00: 05:59 mouth in [place] 00 :00 the Medical morning Branch for 5 days. ketorolac 2022-0 2022- Yes [id number] 10mg Take 1 Univers 10 mg 1-30 02-05 tablet by ity of tablet 00:00: 05:59 mouth [place] 00 :00 every 6 Medical (six) Branch hours for 5 days. predniSONE 2022-0 2022- Yes [id number] 40mg Take 2 Univers 20 mg 1-30 02-05 tablets by ity of tablet 00:00: 05:59 mouth in [place] 00 :00 the Medical morning Branch for 5 days. ketorolac 2022-0 2022- Yes [id number] 10mg Take 1 Univers 10 mg 1-30 02-05 tablet by ity of tablet 00:00: 05:59 mouth [place] 00 :00 every 6 Medical (six) Branch hours for 5 days. predniSONE 2022-0 2022- Yes [id number] 40mg Take 2 Univers 20 mg 1-30 02-05 tablets by ity of tablet 00:00: 05:59 mouth in [place] 00 :00 the Medical morning Branch for 5 days. ketorolac 2022-0 2022- Yes [id number] 10mg Take 1 Univers 10 mg 1-30 02-05 tablet by ity of tablet 00:00: 05:59 mouth [place] 00 :00 every 6 Medical (six) Branch hours for 5 days. predniSONE 2023-0 2023- Yes [id number] 40mg Take 2 Univers 20 mg 1-30 02-05 tablets by ity of tablet 00:00: 05:59 mouth in [place] 00 :00 the Medical morning Branch for 5 days. methocarbam 2022-0 Yes [id number] 500mg Take 1 Univers oL 500 mg 1-27 tablet by ity o f tablet 00:00: mouth 3 [place] ([facility]) Medical times [place] daily as needed for Other (muscle spasm). naproxen 2022-0 Yes [id number] 500mg Take 1 Univers 500 mg 1-27 4 tablet by ity of tablet 00:00: mouth in [place] the [facility] morning Branch and 1 tablet in the evening. Take with meals. methocarbam 2022-0 Yes [id number] 500mg Take 1 Univers oL 500 mg 1-27 tablet by ity o f tablet 00:00: mouth 3 [place] ([facility]) [facility] [facility] times [place] daily as needed for Other (muscle spasm). naproxen 2022-0 Yes [id number] 500mg Take 1 [facility] 500 mg 1-27 4 tablet by ity of tablet 00:00: mouth in [place] the [facility] morning Branch and 1 tablet in the evening. Take with meals. methocarbam 2022-0 Yes [id number] 500mg Take 1 [facility] oL 500 mg 1-27 tablet by ity o f tablet 00:00: mouth 3 [place] ([facility]) [facility] daily as needed for Other (muscle spasm). naproxen 3-0 Yes [id number] 500mg Take 1 [facility] 500 mg 1-27 4 tablet by ity of tablet 00:00: mouth in [place] [address] the [facility] morning Branch and 1 tablet in the evening. Take with meals. methocarbam 3-0 Yes [id number] 500mg Take 1 [facility] oL 500 mg 1-27 tablet by ity o f tablet 00:00: mouth 3 [place] [address] ([facility]) [facility] daily as needed for Other (muscle spasm). naproxen 3-0 Yes [id number] 500mg Take 1 [facility] 500 mg 1-27 4 tablet by ity of tablet 00:00: mouth in [place] [address] the [facility] morning Branch and 1 tablet in the evening. Take with meals. methocarbam 2023-0 Yes [id number] 500mg Take 1 [facility] oL 500 mg 1-27 tablet by ity o f tablet 00:00: mouth 3 () Medical times [place] daily as needed for Other (muscle spasm). naproxen 2023-0 Yes [id number] 500mg Take 1 [facility] 500 mg 1-27 4 tablet by ity of tablet 00:00: mouth in [place] the Medical morning Branch and 1 tablet in the evening. Take with meals. methocarbam 2023-0 Yes [id number] 500mg Take 1 [facility] oL 500 mg 1-27 tablet by ity o f tablet 00:00: mouth 3 [place] (three) Medical times [place] daily as needed for Other (muscle spasm). naproxen 2023-0 Yes [id number] 500mg Take 1 [facility] 500 mg 1-27 4 tablet by ity of tablet 00:00: mouth in [place] the Medical morning Branch and 1 tablet in the evening. Take with meals. methocarbam 3-0 Yes [id number] 500mg Take 1 [facility] oL 500 mg 1-27 tablet by ity o f tablet 00:00: mouth 3 () Medical times [place] daily as needed for Other (muscle spasm). naproxen 3-0 Yes [id number] 500mg Take 1 [facility] 500 mg 1-27 4 tablet by ity of tablet 00:00: mouth in [place] the Medical morning Branch and 1 tablet in the evening. Take with meals. methocarbam 3-0 Yes [id number] 500mg Take 1 [facility] oL 500 mg 1-27 tablet by ity o f tablet 00:00: mouth 3 () Medical times [place] daily as needed for Other (muscle spasm). naproxen 3-0 Yes [id number] 500mg Take 1 [facility] 500 mg 1-27 4 tablet by ity of tablet 00:00: mouth in [place] 00 the Medical morning Branch and 1 tablet in the evening. Take with meals. methocarbam 2-1 Yes [id number] 500mg Take 1 [facility] oL 500 mg 2-17 4 tablet by ity o f tablet 00:00: mouth in [place] 00 the Medical morning Branch and 1 tablet in the evening. naproxen 2-1 Yes [id number] 500mg Take 1 [facility] 500 mg 2-17 4 tablet by ity of tablet 00:00: mouth in [address] and 1 tablet in the evening. Take with meals. naproxen 2021- Yes [id number] 500mg Take 1 [facility] 500 mg 2-17 4 tablet by ity of tablet 00:00: mouth in [address] and 1 tablet in the evening. Take with meals. naproxen 2021-10 Yes [id number] 500mg Take 1 [facility] 500 mg 2-17 4 tablet by ity of tablet 00:00: mouth in [address] and 1 tablet in the evening. Take with meals. naproxen 2021-10 Yes [id number] 500mg Take 1 [facility] 500 mg 2-17 4 tablet by ity of tablet 00:00: mouth in [address] and 1 tablet in the evening. Take with meals. naproxen 2021-10 Yes [id number] 500mg Take 1 [facility] 500 mg 2-17 4 tablet by ity of tablet 00:00: mouth in [address] and 1 tablet in the evening. Take with meals. naproxen 2021- Yes [id number] 500mg Take 1 [facility] 500 mg 2-17 4 tablet by ity of tablet 00:00: mouth in [address] and 1 tablet in the evening. Take with meals. naproxen 2021-10 Yes [id number] 500mg Take 1 [facility] 500 mg 2-17 4 tablet by ity of tablet 00:00: mouth in [address] and 1 tablet in the evening. Take with meals. naproxen 2021- Yes [id number] 500mg Take 1 [facility] 500 mg 2-17 4 tablet by ity of tablet 00:00: mouth in [address] and 1 tablet in the evening. Take with meals. naproxen 2021- Yes [id number] 500mg Take 1 [facility] 500 mg 2-17 4 tablet by ity of tablet 00:00: mouth in [address] and 1 tablet in the evening. Take with meals. naproxen 2021-1 Yes [id number] 500mg Take 1 [facility] 500 mg 2-17 4 tablet by ity of tablet 00:00: mouth in [address] and 1 tablet in the evening. Take with meals. naproxen 2022-1 Yes [id number] 500mg Take 1 [facility] 500 mg 2-17 4 tablet by ity of tablet 00:00: mouth in [place] 00 the Medical morning [place] and 1 tablet in the evening. Take with meals. naproxen 2021-10 Yes [id number] 500mg Take 1 [facility] 500 mg 2-17 4 tablet by ity of tablet 00:00: mouth in [place] 00 the [facility] morning [place] and 1 tablet in the evening. Take with meals. naproxen 2021-10 Yes [id number] 500mg Take 1 [facility] 500 mg 2-17 4 tablet by ity of tablet 00:00: mouth in [place] 00 the [facility] morning [place] and 1 tablet in the evening. Take with meals. naproxen 2021-10- No [id number] 500mg Take 1 [facility] 500 mg 2-17 -27 4 tablet by ity of tablet 00:00: 00:00 mouth in [place] 00 :00 the [facility] and 1 tablet in the evening. Take with meals. methocarbam 2021-10- No [id number] 500mg Take 1 [facility] oL 500 mg 2-17 12-20 4 tablet by ity of tablet 00:00: 00:00 mouth in [place] 00 :00 the [facility] morning [place] and 1 tablet in the evening. methocarbam 2021-10- No [id number] 500mg Take 1 [facility] oL 500 mg 2-17 12-20 4 tablet by ity of tablet 00:00: 00:00 mouth in [place] 00 :00 the [facility] and 1 tablet in the evening. amoxicillin 2021-10 Yes [id number] 500mg Take 1 [facility] 500 mg 1-29 capsule by ity of capsule 00:00: mouth in [address] morning [place] and 1 capsule at noon and 1 capsule in the evening. amoxicillin 2021-10 Yes [id number] 500mg Take 1 [facility] 500 mg 1-29 capsule by ity of capsule 00:00: mouth in [address] morning [place] and 1 capsule at noon and 1 capsule in the evening. amoxicillin 2021-10 Yes [id number] 500mg Take 1 [facility] 500 mg 1-29 capsule by ity of capsule 00:00: mouth in [address] morning [place] and 1 capsule at noon and 1 capsule in the evening. amoxicillin 2021-10- No [id number] 500mg Take 1 [facility] 500 mg - 12-20 capsule by ity of capsule 00:00: 00:00 mouth in [place] 00 :00 the Medical morning Branch and 1 capsule at noon and 1 capsule in the evening. amoxicillin 2021-10 No [id number] 500mg Take 1 [facility] 500 mg -29 12-20 capsule by ity of capsule 00:00: 00:00 mouth in [place] 00 :00 the Medical morning Branch and 1 capsule at noon and 1 capsule in the evening. traMADoL 50 2021-10 No [id number] 50mg Take 1 [facility] vers mg tablet - 11-10 tablet by ity of 00:00: 05:59 mouth [place] 00 :00 every 6 Medical (six) Branch hours as needed for Pain (scale 7-10) for up to 7 days. Indication s: acute pain traMADoL 50 2021-10 4647 50mg Take 1 [facility] vers mg tablet - 11-10 tablet by ity of 00:00: 05:59 mouth [place] 00 :00 every 6 Medical (six) Branch hours as needed for Pain (scale 7-10) for up to 7 days. Indication s: acute pain traMADoL 50 2021-10 No [id number] 50mg Take 1 [facility] vers mg tablet - 11-10 tablet by ity of 00:00: 05:59 mouth [place] 00 :00 every 6 Medical (six) Branch hours as needed for Pain (scale 7-10) for up to 7 days. Indication s: acute pain traMADoL 50 2021-10 No [id number] 50mg Take 1 [facility] vers mg tablet - 11-10 tablet by ity of 00:00: 05:59 mouth [place] 00 :00 every 6 Medical (six) Branch hours as needed for Pain (scale 7-10) for up to 7 days. Indication s: acute pain traMADoL 50 2021-10 No [id number] 50mg Take 1 [facility] vers mg tablet - 11-10 tablet by ity of 00:00: 05:59 mouth [place] 00 :00 every 6 Medical (six) Branch hours as needed for Pain (scale 7-10) for up to 7 days. Indication s: acute pain HYDROcodone 2021-10 No 4647 1{tbl} Take 1 U nivers -acetaminop 0-24 11- tablet by it y of hen ([facility]CO) 00:00: 04:59 mouth [place] 5-325 mg 00 :00 every 6 Medical tablet (six) Branch hours as needed for Pain (scale 7-10) for up to 7 days. Indication s: acute pain citalopram 2021-10 Yes 10mg Take 10 mg U nivers 10 mg 0-18 by mouth ity of tablet 14:53: daily. [address] Melatonin 5 2021-10 Yes Take by [facility] vers mg tablet 0-18 mouth. ity of 14:53: [address] citalopram 2021-10 Yes 10mg Take 10 mg U nivers 10 mg 0-18 by mouth ity of tablet 14:53: daily. [address] Melatonin 5 2021-10 Yes Take by [facility] vers mg tablet 0-18 mouth. ity of 14:53: [address] citalopram 2021-10 Yes 10mg Take 10 mg U nivers 10 mg 0-18 by mouth ity of tablet 14:53: daily. [address] Melatonin 5 2021-10 Yes Take by [facility] vers mg tablet 0-18 mouth. ity of 14:53: [address] citalopram 2021-10 Yes 10mg Take 10 mg U nivers 10 mg 0-18 by mouth ity of tablet 14:53: daily. [address] Melatonin 5 2021-10 Yes Take by [facility] vers mg tablet 0-18 mouth. ity of 14:53: [address] citalopram 2021-10 Yes 10mg Take 10 mg U nivers 10 mg 0-18 by mouth ity of tablet 14:53: daily. [address] Melatonin 5 2021-10 Yes Take by [facility] vers mg tablet 0-18 mouth. ity of 14:53: [address] citalopram 2021-10 Yes 10mg Take 10 mg U nivers 10 mg 0-18 by mouth ity of tablet 14:53: daily. [address] Melatonin 5 2021-10 Yes Take by [facility] vers mg tablet 0-18 mouth. ity of 14:53: [address] citalopram 2021-10 Yes 10mg Take 10 mg U nivers 10 mg 0-18 by mouth ity of tablet 14:53: daily. [address] Melatonin 5 2021-10 Yes Take by [facility] vers mg tablet 0-18 mouth. ity of 14:53: [address] citalopram 2021-10 Yes 10mg Take 10 mg U nivers 10 mg 0-18 by mouth ity of tablet 14:53: daily. [address] Melatonin 5 2021-10 Yes Take by [facility] vers mg tablet 0-18 mouth. ity of 14:53: [address] citalopram 2021-10 Yes 10mg Take 10 mg U nivers 10 mg 0-18 by mouth ity of tablet 14:53: daily. [address] Melatonin 5 2021-10 Yes Take by [facility] vers mg tablet 0-18 mouth. ity of 14:53: [address] citalopram 2021-10 Yes 10mg Take 10 mg U nivers 10 mg 0-18 by mouth ity of tablet 14:53: daily. [address] Melatonin 5 2021-10 Yes Take by [facility] vers mg tablet 0-18 mouth. ity of 14:53: [address] citalopram 2021-10 Yes 10mg Take 10 mg U nivers 10 mg 0-18 by mouth ity of tablet 14:53: daily. [address] Melatonin 5 2021-10 Yes Take by [facility] vers mg tablet 0-18 mouth. ity of 14:53: [address] citalopram 2021-10 Yes 10mg Take 10 mg U nivers 10 mg 0-18 by mouth ity of tablet 14:53: daily. [address] Melatonin 5 2021-10 Yes Take by [facility] vers mg tablet 0-18 mouth. ity of 14:53: [address] citalopram 2021-10 Yes 10mg Take 10 mg U nivers 10 mg 0-18 by mouth ity of tablet 14:53: daily. [address] Melatonin 5 2021-10 Yes Take by [facility] vers mg tablet 0-18 mouth. ity of 14:53: [address] citalopram 2021-10 Yes 10mg Take 10 mg U nivers 10 mg 0-18 by mouth ity of tablet 14:53: daily. [address] Melatonin 5 2021-10 Yes Take by [facility] vers mg tablet 0-18 mouth. ity of 14:53: [address] citalopram 2021-10 Yes 10mg Take 10 mg U nivers 10 mg 0-18 by mouth ity of tablet 14:53: daily. [address] Melatonin 5 2021-10 Yes Take by [facility] vers mg tablet 0-18 mouth. ity of 14:53: [address] citalopram 2021-10 Yes 10mg Take 10 mg U nivers 10 mg 0-18 by mouth ity of tablet 14:53: daily. [address] Melatonin 5 2021-10 Yes Take by [facility] vers mg tablet 0-18 mouth. ity of 14:53: [address] citalopram 2021-10 Yes 10mg Take 10 mg U nivers 10 mg 0-18 by mouth ity of tablet 14:53: daily. [address] Melatonin 5 2021-10 Yes Take by [facility] vers mg tablet 0-18 mouth. ity of 14:53: [address] citalopram 2021-10 Yes 10mg Take 10 mg U nivers 10 mg 0-18 by mouth ity of tablet 14:53: daily. [address] Melatonin 5 2021-10 Yes Take by [facility] vers mg tablet 0-18 mouth. ity of 14:53: [address] citalopram 2021-10 Yes 10mg Take 10 mg U nivers 10 mg 0-18 by mouth ity of tablet 14:53: daily. [address] Melatonin 5 2021-10 Yes Take by [facility] vers mg tablet 0-18 mouth. ity of 14:53: [address] citalopram 2021-10 Yes 10mg Take 10 mg U nivers 10 mg 0-18 by mouth ity of tablet 14:53: daily. [address] Melatonin 5 2021-10 Yes Take by [facility] vers mg tablet 0-18 mouth. ity of 14:53: [address] citalopram 2021-10 Yes 10mg Take 10 mg U nivers 10 mg 0-18 by mouth ity of tablet 14:53: daily. [address] Melatonin 5 2021-10 Yes Take by [facility] vers mg tablet 0-18 mouth. ity of 14:53: [address] citalopram 2021-10 Yes 10mg Take 10 mg U nivers 10 mg 0-18 by mouth ity of tablet 14:53: daily. [address] Melatonin 5 2021-10 Yes Take by [facility] vers mg tablet 0-18 mouth. ity of 14:53: [address] citalopram 2021-10 Yes 10mg Take 10 mg U nivers 10 mg 0-18 by mouth ity of tablet 14:53: daily. [address] Melatonin 5 2021-10 Yes Take by [facility] vers mg tablet 0-18 mouth. ity of 14:53: [address] citalopram 2021-10 Yes 10mg Take 10 mg U nivers 10 mg 0-18 by mouth ity of tablet 14:53: daily. [address] Melatonin 5 2021-10 Yes Take by [facility] vers mg tablet 0-18 mouth. ity of 14:53: [address] citalopram 2021-10 Yes 10mg Take 10 mg U nivers 10 mg 0-18 by mouth ity of tablet 14:53: daily. [address] Melatonin 5 2021-10 Yes Take by [facility] vers mg tablet 0-18 mouth. ity of 14:53: [address] citalopram 2021-10 Yes 10mg Take 10 mg U nivers 10 mg 0-18 by mouth ity of tablet 14:53: daily. [address] Melatonin 5 2021-10 Yes Take by [facility] vers mg tablet 0-18 mouth. ity of 14:53: [address] citalopram 2021-10 Yes 10mg Take 10 mg U nivers 10 mg 0-18 by mouth ity of tablet 14:53: daily. [address] Melatonin 5 2021-10 Yes Take by [facility] vers mg tablet 0-18 mouth. ity of 14:53: [address] citalopram 2021-10 Yes 10mg Take 10 mg U nivers 10 mg 0-18 by mouth ity of tablet 14:53: daily. [address] Melatonin 5 2021-10 Yes Take by [facility] vers mg tablet 0-18 mouth. ity of 14:53: [address] citalopram 2021-10 Yes 10mg Take 10 mg U nivers 10 mg 0-18 by mouth ity of tablet 14:53: daily. [address] Melatonin 5 2021-10 Yes Take by [facility] vers mg tablet 0-18 mouth. ity of 14:53: [address] citalopram 2021-10 Yes 10mg Take 10 mg U nivers 10 mg 0-18 by mouth ity of tablet 14:53: daily. [address] Melatonin 5 2021-10 Yes Take by [facility] vers mg tablet 0-18 mouth. ity of 14:53: [address] citalopram 2021-10 Yes 10mg Take 10 mg U nivers 10 mg 0-18 by mouth ity of tablet 14:53: daily. [address] citalopram 2021-10 Yes 10mg Take 10 mg U nivers 10 mg 0-18 by mouth ity of tablet 14:53: daily. [address] Melatonin 5 2021-10 Yes Take by [facility] vers mg tablet 0-18 mouth. ity of 14:53: [address] citalopram 2021-10 Yes 10mg Take 10 mg U nivers 10 mg 0-18 by mouth ity of tablet 14:53: daily. [address] Melatonin 5 2021-10 Yes Take by [facility] vers mg tablet 0-18 mouth. ity of 14:53: [address] citalopram 2021-10 Yes 10mg Take 10 mg U nivers 10 mg 0-18 by mouth ity of tablet 14:53: daily. [address] Melatonin 5 2021-10 Yes Take by [facility] vers mg tablet 0-18 mouth. ity of 14:53: [address] citalopram 2021-10 Yes 10mg Take 10 mg U nivers 10 mg 0-18 by mouth ity of tablet 14:53: daily. [address] Melatonin 5 2021-10 Yes Take by [facility] vers mg tablet 0-18 mouth. ity of 14:53: [address] citalopram 2021-10 Yes 10mg Take 10 mg U nivers 10 mg 0-18 by mouth ity of tablet 14:53: daily. [address] Melatonin 5 2021-10 Yes Take by [facility] vers mg tablet 0-18 mouth. ity of 14:53: [address] citalopram 2021-10 Yes 10mg Take 10 mg U nivers 10 mg 0-18 by mouth ity of tablet 14:53: daily. [address] Melatonin 5 2021-10 Yes Take by [facility] vers mg tablet 0-18 mouth. ity of 14:53: [address] citalopram 2021-10 Yes 10mg Take 10 mg U nivers 10 mg 0-18 by mouth ity of tablet 14:53: daily. [address] Melatonin 5 2021-10 Yes Take by [facility] vers mg tablet 0-18 mouth. ity of 14:53: [address] citalopram 2021-10 Yes 10mg Take 10 mg U nivers 10 mg 0-18 by mouth ity of tablet 14:53: daily. [address] Melatonin 5 2021-10 Yes Take by [facility] vers mg tablet 0-18 mouth. ity of 14:53: [address] citalopram 2021-10 Yes 10mg Take 10 mg U nivers 10 mg 0-18 by mouth ity of tablet 14:53: daily. [address] Melatonin 5 2021-10 Yes Take by [facility] vers mg tablet 0-18 mouth. ity of 14:53: [address] citalopram 2021-10 Yes 10mg Take 10 mg U nivers 10 mg 0-07 by mouth ity of tablet 20:33: daily. [address] Melatonin 5 2021-10 Yes Take by [facility] vers mg tablet 0-07 mouth. ity of 20:33: [address] aspirin 81 2021-10- 81mg Take 81 mg [facility] mg chewable 0-07 10-07 by mouth ity of tablet 08:34: 00:00 daily. [place] 54 :00 [facility] Branch aspirin 325 2021-10 Yes [id number] 325mg Take 1 [facility] mg tablet 0-07 tablet by ity o f 00:00: mouth in [place] 00 the Medical morning Branch and 1 tablet in the evening. HYDROcodone 2021-10 Yes [id number] 1{tbl} Take 1 Un [place] -acetaminop 0-07 tablet by ity of hen (NORCO) 00:00: mouth [place] 10-325 mg 00 every 6 Medical tablet (six) Branch hours as needed for Pain (scale 7-10). Indication s: acute pain methocarbam 2021-10 Yes [id number] 500mg Take 1 [facility] oL 500 mg 0-07 tablet by ity o f tablet 00:00: mouth 3 [place] 00 (three) Medical times Branch daily as needed for Other (muscle spasm). aspirin 325 2021-10 Yes [id number] 325mg Take 1 [facility] mg tablet 0-07 tablet by ity o f 00:00: mouth in [place] 00 the Medical morning Branch and 1 tablet in the evening. HYDROcodone 2021-10 Yes [id number] 1{tbl} Take 1 Un [place] -acetaminop 0-07 tablet by ity of hen (NORCO) 00:00: mouth [place] 10-325 mg 00 every 6 Medical tablet (six) Branch hours as needed for Pain (scale 7-10). Indication s: acute pain methocarbam 2021-10 Yes [id number] 500mg Take 1 [facility] oL 500 mg 0-07 tablet by ity o f tablet 00:00: mouth 3 (three) Medical times Branch daily as needed for Other (muscle spasm). aspirin 325 2021-10 Yes [id number] 325mg Take 1 [facility] mg tablet 0-07 tablet by ity o f 00:00: mouth in [place] 00 the Medical morning Branch and 1 tablet in the evening. HYDROcodone 2021-10 Yes [id number] 1{tbl} Take 1 Un [place] -acetaminop 0-07 tablet by ity of hen (NORCO) 00:00: mouth [place] 10-325 mg 00 every 6 Medical tablet (six) Branch hours as needed for Pain (scale 7-10). Indication s: acute pain methocarbam 2021-10 Yes [id number] 500mg Take 1 [facility] oL 500 mg 0-07 tablet by ity o f tablet 00:00: mouth 3 (three) Medical times Branch daily as needed for Other (muscle spasm). aspirin 325 2021-10 Yes [id number] 325mg Take 1 [facility] mg tablet 0-07 tablet by ity o f 00:00: mouth in [place] 00 the Medical morning Branch and 1 tablet in the evening. HYDROcodone 2021-10 Yes [id number] 1{tbl} Take 1 Un [facility] -acetaminop 0-07 tablet by ity of hen (NORCO) 00:00: mouth [place] 10-325 mg 00 every 6 Medical tablet (six) Branch hours as needed for Pain (scale 7-10). Indication s: acute pain methocarbam 2021-10 Yes [id number] 500mg Take 1 [facility] oL 500 mg 0-07 tablet by ity o f tablet 00:00: mouth 3 [place] 00 (three) Medical times Branch daily as needed for Other (muscle spasm). aspirin 325 2021-10 Yes [id number] 325mg Take 1 [facility] mg tablet 0-07 tablet by ity o f 00:00: mouth in [place] 00 the Medical morning Branch and 1 tablet in the evening. HYDROcodone 2021-10 Yes [id number] 1{tbl} Take 1 [facility] -acetaminop 0-07 tablet by ity of hen (NORCO) 00:00: mouth [place] 10-325 mg 00 every 6 Medical tablet (six) Branch hours as needed for Pain (scale 7-10). Indication s: acute pain methocarbam 2021-10 Yes [id number] 500mg Take 1 [facility] oL 500 mg 0-07 tablet by ity o f tablet 00:00: mouth 3 (three) Medical times Branch daily as needed for Other (muscle spasm). aspirin 325 2021-10 Yes [id number] 325mg Take 1 [facility] mg tablet 0-07 tablet by ity o f 00:00: mouth in [place] 00 the Medical morning Branch and 1 tablet in the evening. HYDROcodone 2021-10 Yes [id number] 1{tbl} Take 1 [facility] -acetaminop 0-07 tablet by ity of hen (NORCO) 00:00: mouth [place] 10-325 mg 00 every 6 Medical tablet (six) Branch hours as needed for Pain (scale 7-10). Indication s: acute pain methocarbam 2021-10 Yes [id number] 500mg Take 1 [facility] oL 500 mg 0-07 tablet by ity o f tablet 00:00: mouth 3 (three) Medical times Branch daily as needed for Other (muscle spasm). aspirin 325 2021-10 Yes [id number] 325mg Take 1 [facility] mg tablet 0-07 tablet by ity o f 00:00: mouth in [place] 00 the Medical morning Branch and 1 tablet in the evening. HYDROcodone 2021-10 Yes [id number] 1{tbl} Take 1 [facility] -acetaminop 0-07 tablet by ity of hen (NORCO) 00:00: mouth [place] 10-325 mg 00 every 6 Medical tablet (six) Branch hours as needed for Pain (scale 7-10). Indication s: acute pain methocarbam 2021-10 Yes [id number] 500mg Take 1 [facility] oL 500 mg 0-07 tablet by ity o f tablet 00:00: mouth 3 (three) Medical times Branch daily as needed for Other (muscle spasm). aspirin 325 2021-10 Yes [id number] 325mg Take 1 [facility] mg tablet 0-07 tablet by ity o f 00:00: mouth in 00 the Medical morning Branch and 1 tablet in the evening. HYDROcodone 2021-10 Yes [id number] 1{tbl} Take 1 [facility] [place] -acetaminop 0-07 tablet by ity of hen (NORCO) 00:00: mouth [place] 10-325 mg 00 every 6 Medical tablet (six) Branch hours as needed for Pain (scale 7-10). Indication s: acute pain methocarbam 2021-10 Yes [id number] 500mg Take 1 [facility] oL 500 mg 0-07 tablet by ity o f tablet 00:00: mouth 3 (three) Medical times Branch daily as needed for Other (muscle spasm). aspirin 325 2021-10 Yes [id number] 325mg Take 1 [facility] mg tablet 0-07 tablet by ity o f 00:00: mouth in the Medical morning Branch and 1 tablet in the evening. HYDROcodone 2021-10 Yes [id number] 1{tbl} Take 1 [facility] -acetaminop 0-07 tablet by ity of hen (NORCO) 00:00: mouth [place] 10-325 mg 00 every 6 Medical tablet (six) Branch hours as needed for Pain (scale 7-10). Indication s: acute pain methocarbam 2021-10 Yes [id number] 500mg Take 1 [facility] oL 500 mg 0-07 tablet by ity o f tablet 00:00: mouth 3 (three) Medical times Branch daily as needed for Other (muscle spasm). aspirin 325 2021-10 Yes [id number] 325mg Take 1 [facility] mg tablet 0-07 tablet by ity o f 00:00: mouth in 00 the Medical morning Branch and 1 tablet in the evening. HYDROcodone 2021-10 Yes [id number] 1{tbl} Take 1 [facility] -acetaminop 0-07 tablet by ity of hen (NORCO) 00:00: mouth [place] 10-325 mg 00 every 6 Medical tablet (six) Branch hours as needed for Pain (scale 7-10). Indication s: acute pain methocarbam 2021-10 Yes [id number] 500mg Take 1 [facility] oL 500 mg 0-07 tablet by ity o f tablet 00:00: mouth 3 (three) Medical times Branch daily as needed for Other (muscle spasm). aspirin 325 2021-10 Yes [id number] 325mg Take 1 [facility] mg tablet 0-07 tablet by ity o f 00:00: mouth in [place] 00 the Medical morning Branch and 1 tablet in the evening. HYDROcodone 2021-10 Yes [id number] 1{tbl} Take 1 [facility] -acetaminop 0-07 tablet by ity of hen (NORCO) 00:00: mouth [place] 10-325 mg 00 every 6 Medical tablet (six) Branch hours as needed for Pain (scale 7-10). Indication s: acute pain methocarbam 2021-10 Yes [id number] 500mg Take 1 [facility] oL 500 mg 0-07 tablet by ity o f tablet 00:00: mouth 3 (three) Medical times Branch daily as needed for Other (muscle spasm). aspirin 325 2021-10 Yes [id number] 325mg Take 1 [facility] mg tablet 0-07 tablet by ity o f 00:00: mouth in 00 the Medical morning Branch and 1 tablet in the evening. HYDROcodone 2021-10 Yes [id number] 1{tbl} Take 1 [facility] -acetaminop 0-07 tablet by ity of hen (NORCO) 00:00: mouth [place] 10-325 mg 00 every 6 Medical tablet (six) Branch hours as needed for Pain (scale 7-10). Indication s: acute pain methocarbam 2021-10 Yes [id number] 500mg Take 1 [facility] oL 500 mg 0-07 tablet by ity o f tablet 00:00: mouth 3 (three) Medical times Branch daily as needed for Other (muscle spasm). aspirin 325 2021-10 Yes [id number] 325mg Take 1 [facility] mg tablet 0-07 tablet by ity o f 00:00: mouth in [place] 00 the Medical morning Branch and 1 tablet in the evening. HYDROcodone 2021-10 Yes [id number] 1{tbl} Take 1 [facility] -acetaminop 0-07 tablet by ity of hen (NORCO) 00:00: mouth [place] 10-325 mg 00 every 6 Medical tablet (six) Branch hours as needed for Pain (scale 7-10). Indication s: acute pain methocarbam 2021-10 Yes [id number] 500mg Take 1 [facility] oL 500 mg 0-07 tablet by ity o f tablet 00:00: mouth 3 (three) Medical times Branch daily as needed for Other (muscle spasm). aspirin 325 2021-10 Yes [id number] 325mg Take 1 [facility] mg tablet 0-07 tablet by ity o f 00:00: mouth in 00 the Medical morning Branch and 1 tablet in the evening. HYDROcodone 2021-10 Yes [id number] 1{tbl} Take 1 [facility] -acetaminop 0-07 tablet by ity of hen (NORCO) 00:00: mouth [place] 10-325 mg 00 every 6 Medical tablet (six) Branch hours as needed for Pain (scale 7-10). Indication s: acute pain methocarbam 2021-10 Yes [id number] 500mg Take 1 [facility] oL 500 mg 0-07 tablet by ity o f tablet 00:00: mouth 3 (three) Medical times Branch daily as needed for Other (muscle spasm). aspirin 325 2021-10 Yes [id number] 325mg Take 1 [facility] mg tablet 0-07 tablet by ity o f 00:00: mouth in 00 the Medical morning Branch and 1 tablet in the evening. HYDROcodone 2021-10 Yes [id number] 1{tbl} Take 1 [facility] -acetaminop 0-07 tablet by ity of hen (NORCO) 00:00: mouth [place] 10-325 mg 00 every 6 Medical tablet (six) Branch hours as needed for Pain (scale 7-10). Indication s: acute pain methocarbam 2021-10 Yes [id number] 500mg Take 1 [facility] oL 500 mg 0-07 tablet by ity o f tablet 00:00: mouth 3 (three) Medical times Branch daily as needed for Other (muscle spasm). aspirin 325 2021-10 Yes [id number] 325mg Take 1 [facility] mg tablet 0-07 tablet by ity o f 00:00: mouth in 00 the Medical morning Branch and 1 tablet in the evening. HYDROcodone 2021-10 Yes [id number] 1{tbl} Take 1 [facility] -acetaminop 0-07 tablet by ity of hen (NORCO) 00:00: mouth [place] 10-325 mg 00 every 6 Medical tablet (six) Branch hours as needed for Pain (scale 7-10). Indication s: acute pain methocarbam 2021-10 Yes [id number] 500mg Take 1 [facility] oL 500 mg 0-07 tablet by ity o f tablet 00:00: mouth 3 [place] 00 (three) Medical times Branch daily as needed for Other (muscle spasm). aspirin 325 2021-10 Yes [id number] 325mg Take 1 [facility] mg tablet 0-07 tablet by ity o f 00:00: mouth in [place] 00 the Medical morning Branch and 1 tablet in the evening. HYDROcodone 2021-10 Yes [id number] 1{tbl} Take 1 [facility] -acetaminop 0-07 tablet by ity of hen (NORCO) 00:00: mouth [place] 10-325 mg 00 every 6 Medical tablet (six) Branch hours as needed for Pain (scale 7-10). Indication s: acute pain methocarbam 2021-10 Yes [id number] 500mg Take 1 [facility] oL 500 mg 0-07 tablet by ity o f tablet 00:00: mouth 3 (three) Medical times Branch daily as needed for Other (muscle spasm). aspirin 325 2021-10 Yes [id number] 325mg Take 1 [facility] mg tablet 0-07 tablet by ity o f 00:00: mouth in [place] the Medical morning Branch and 1 tablet in the evening. HYDROcodone 2021-10 Yes [id number] 1{tbl} Take 1 [facility] -acetaminop 0-07 tablet by ity of hen (NORCO) 00:00: mouth [place] 10-325 mg 00 every 6 Medical tablet (six) Branch hours as needed for Pain (scale 7-10). Indication s: acute pain methocarbam 2021-10 Yes [id number] 500mg Take 1 [facility] oL 500 mg 0-07 tablet by ity o f tablet 00:00: mouth 3 00 (three) Medical times Branch daily as needed for Other (muscle spasm). aspirin 325 2021-10 Yes [id number] 325mg Take 1 [facility] mg tablet 0-07 tablet by ity o f 00:00: mouth in [place] 00 the Medical morning Branch and 1 tablet in the evening. HYDROcodone 2021-10 Yes [id number] 1{tbl} Take 1 [facility] -acetaminop 0-07 tablet by ity of hen (NORCO) 00:00: mouth [place] 10-325 mg 00 every 6 Medical tablet (six) Branch hours as needed for Pain (scale 7-10). Indication s: acute pain methocarbam 2021-10 Yes [id number] 500mg Take 1 [facility] oL 500 mg 0-07 tablet by ity o f tablet 00:00: mouth 3 [place] 00 (three) Medical times Branch daily as needed for Other (muscle spasm). aspirin 325 2021-10 Yes [id number] 325mg Take 1 [facility] mg tablet 0-07 tablet by ity o f 00:00: mouth in [place] 00 the Medical morning Branch and 1 tablet in the evening. methocarbam 2021-10 Yes [id number] 500mg Take 1 [facility] oL 500 mg 0-07 tablet by ity o f tablet 00:00: mouth 3 [place] 00 (three) Medical times Branch daily as needed for Other (muscle spasm). aspirin 325 2021-10 Yes [id number] 325mg Take 1 [facility] mg tablet 0-07 tablet by ity o f 00:00: mouth in [place] 00 the Medical morning Branch and 1 tablet in the evening. methocarbam 2021-10 Yes [id number] 500mg Take 1 [facility] oL 500 mg 0-07 tablet by ity o f tablet 00:00: mouth 3 00 (three) Medical times Branch daily as needed for Other (muscle spasm). aspirin 325 2021-10 Yes [id number] 325mg Take 1 [facility] mg tablet 0-07 tablet by ity o f 00:00: mouth in [place] 00 the Medical morning Branch and 1 tablet in the evening. methocarbam 2021-10 Yes [id number] 500mg Take 1 [facility] oL 500 mg 0-07 tablet by ity o f tablet 00:00: mouth 3 00 (three) Medical times Branch daily as needed for Other (muscle spasm). aspirin 325 2021-10 Yes [id number] 325mg Take 1 [facility] mg tablet 0-07 tablet by ity o f 00:00: mouth in [place] 00 the Medical morning Branch and 1 tablet in the evening. methocarbam 2021-10 Yes [id number] 500mg Take 1 [facility] oL 500 mg 0-07 tablet by ity o f tablet 00:00: mouth 3 [place] 00 (three) Medical times Branch daily as needed for Other (muscle spasm). aspirin 325 2021-10 Yes [id number] 325mg Take 1 [facility] mg tablet 0-07 tablet by ity o f 00:00: mouth in [place] 00 the Medical morning Branch and 1 tablet in the evening. methocarbam 2021-10 Yes [id number] 500mg Take 1 [facility] oL 500 mg 0-07 tablet by ity o f tablet 00:00: mouth 3 (three) Medical times Branch daily as needed for Other (muscle spasm). aspirin 325 2021-10 Yes [id number] 325mg Take 1 [facility] mg tablet 0-07 tablet by ity o f 00:00: mouth in [place] 00 the Medical morning Branch and 1 tablet in the evening. methocarbam 2021-10 Yes [id number] 500mg Take 1 [facility] oL 500 mg 0-07 tablet by ity o f tablet 00:00: mouth 3 (three) Medical times Branch daily as needed for Other (muscle spasm). aspirin 325 2021-10 Yes [id number] 325mg Take 1 [facility] mg tablet 0-07 tablet by ity o f 00:00: mouth in [place] the Medical morning Branch and 1 tablet in the evening. methocarbam 2021-10 Yes [id number] 500mg Take 1 [facility] oL 500 mg 0-07 tablet by ity o f tablet 00:00: mouth 3 (three) Medical times [place] daily as needed for Other (muscle spasm). aspirin 325 2021-10 Yes [id number] 325mg Take 1 [facility] mg tablet 0-07 tablet by ity o f 00:00: mouth in [place] the Medical morning Branch and 1 tablet in the evening. methocarbam 2021-10 Yes [id number] 500mg Take 1 [facility] oL 500 mg 0-07 tablet by ity o f tablet 00:00: mouth 3 (three) Medical times Branch daily as needed for Other (muscle spasm). aspirin 325 2021-10 Yes [id number] 325mg Take 1 [facility] mg tablet 0-07 tablet by ity o f 00:00: mouth in [place] 00 the Medical morning Branch and 1 tablet in the evening. methocarbam 2021-10 Yes [id number] 500mg Take 1 [facility] oL 500 mg 0-07 tablet by ity o f tablet 00:00: mouth 3 (three) Medical times Branch daily as needed for Other (muscle spasm). aspirin 325 2021-10 Yes [id number] 325mg Take 1 [facility] mg tablet 0-07 tablet by ity o f 00:00: mouth in [place] 00 the Medical morning Branch and 1 tablet in the evening. methocarbam 2021-10 Yes [id number] 500mg Take 1 [facility] oL 500 mg 0-07 tablet by ity o f tablet 00:00: mouth 3 [place] 00 (three) Medical times Branch daily as needed for Other (muscle spasm). aspirin 325 2021-10 Yes [id number] 325mg Take 1 [facility] mg tablet 0-07 tablet by ity o f 00:00: mouth in [place] 00 the Medical morning Branch and 1 tablet in the evening. methocarbam 2021-10 Yes [id number] 500mg Take 1 [facility] oL 500 mg 0-07 tablet by ity o f tablet 00:00: mouth 3 [place] (three) Medical times [place] daily as needed for Other (muscle spasm). aspirin 325 2021-10 Yes [id number] 325mg Take 1 [facility] mg tablet 0-07 tablet by ity o f 00:00: mouth in [place] the Medical morning Branch and 1 tablet in the evening. methocarbam 2021-10 Yes [id number] 500mg Take 1 [facility] oL 500 mg 0-07 tablet by ity o f tablet 00:00: mouth 3 (three) Medical times [place] daily as needed for Other (muscle spasm). aspirin 325 2021-10 Yes [id number] 325mg Take 1 [facility] mg tablet 0-07 tablet by ity o f 00:00: mouth in [place] the Medical morning Branch and 1 tablet in the evening. aspirin 325 2021-10 Yes [id number] 325mg Take 1 [facility] mg tablet 0-07 tablet by ity o f 00:00: mouth in [place] the Medical morning Branch and 1 tablet in the evening. aspirin 325 2021-10 Yes [id number] 325mg Take 1 [facility] mg tablet 0-07 tablet by ity o f 00:00: mouth in [place] [address] the Medical morning Branch and 1 tablet in the evening. aspirin 325 2021-10 Yes [id number] 325mg Take 1 [facility] mg tablet 0-07 tablet by ity o f 00:00: mouth in [place] [address] the Medical morning Branch and 1 tablet in the evening. aspirin 325 2021-10 Yes [id number] 325mg Take 1 [facility] mg tablet 0-07 tablet by ity o f 00:00: mouth in [place] 00 the Medical morning Branch and 1 tablet in the evening. aspirin 325 2021-10 Yes [id number] 325mg Take 1 [facility] mg tablet 0-07 tablet by ity o f 00:00: mouth in [place] 00 the Medical morning Branch and 1 tablet in the evening. aspirin 325 2021-10 Yes [id number] 325mg Take 1 [facility] mg tablet 0-07 tablet by ity o f 00:00: mouth in [place] 00 the Medical morning Branch and 1 tablet in the evening. aspirin 325 2021-10 Yes [id number] 325mg Take 1 [facility] mg tablet 0-07 tablet by ity o f 00:00: mouth in [place] 00 the Medical morning Branch and 1 tablet in the evening. methocarbam 2021-10- No [id number] 500mg Take 1 [facility] oL 500 mg 0-07 - tablet by ity of tablet 00:00: 00:00 mouth 3 [place] 00 :00 (three) Medical times Branch daily as needed for Other (muscle spasm). HYDROcodone 2021-10- No [id number] 1{tbl} Take 1 U nivers -acetaminop 0-07 12-20 tablet by it y of hen (NORCO) 00:00: 00:00 mouth [place] 10-325 mg 00 :00 every 6 Medical tablet (six) Branch hours as needed for Pain (scale 7-10). Indication s: acute pain HYDROcodone 2021-10- No 4647 1{tbl} Take 1 U nivers -acetaminop 0-07 12-20 tablet by it y of hen (NORCO) 00:00: 00:00 mouth [place] 10-325 mg 00 :00 every 6 Medical tablet (six) Branch hours as needed for Pain (scale 7-10). Indication s: acute pain aspirin 325 2021-10- No [id number] 325mg Take 1 [facility] mg tablet 0-07 -07 tablet by ity of 00:00: 05:59 mouth in [place] 00 :00 the Medical morning Branch and 1 tablet in the evening. Do all this for 30 days. methocarbam 2021-10- No [id number] 500mg Take 1 [facility] oL 500 mg 0-07 - tablet by ity of tablet 00:00: 04:59 mouth 3 [place] 00 :00 (three) Medical times Branch daily as needed for Other (muscle spasm) for up to 14 days. traMADoL 50 2021-10 4647 50mg Take 1 Uni vers mg tablet 0-07 10-18 tablet by ity of 00:00: 00:00 mouth [place] 00 :00 every 6 Medical (six) Branch hours as needed for Pain (scale 7-10). Indication s: acute pain traMADoL 50 2021-10 4647 50mg Take 1 Uni vers mg tablet 0-07 10-18 tablet by ity of 00:00: 00:00 mouth [place] 00 :00 every 6 Medical (six) Branch hours as needed for Pain (scale 7-10). Indication s: acute pain traMADoL 50 2021-10 4647 50mg Take 1 Uni vers mg tablet 0-07 10-18 tablet by ity of 00:00: 00:00 mouth [place] 00 :00 every 6 Medical (six) Branch hours as needed for Pain (scale 7-10). Indication s: acute pain traMADoL 50 2021-10 4647 50mg Take 1 Uni vers mg tablet 0-07 10-15 tablet by ity of 00:00: 04:59 mouth [place] 00 :00 every 6 Medical (six) Branch hours as needed for Pain (scale 7-10) for up to 7 days. Indication s: acute pain HYDROcodone 2021-10 4647 1{tbl} Take 1 U nivers -acetaminop 0-07 10-15 tablet by it y of hen (NORCO) 00:00: 04:59 mouth [place] 10-325 mg 00 :00 every 6 Medical tablet (six) Branch hours as needed for Pain (scale 7-10) for up to 7 days. Indication s: acute pain lactated 2021-10 500mL at 250 Unive rs ringers IV 0-05 10-05 mL/hr, 500 it y of infusion 18:45: 20:59 mL, [place] 500 mL 00 :05 Intravenou Medical s, ONCE, 1 Branch dose, On Tue07/28/22 at 1345, Routine divalproex 2021-10 Yes 750mg 750 mg, Uni vers (DEPAKOTE) 0-04 Oral, ity of EC tablet 14:00: DAILY, [place] 750 mg 00 First dose Medical on [facility] 07/27/22 at 0900, Until Discontinu ed, Routine polyethylen 2021-10 Yes 17g 17 g, Unive rs e glycol 0-04 Oral, ity of 3350 powder 14:00: DAILY, [place] 17 g 00 First dose Medical on [facility] 07/27/22 at 0900, Until Discontinu ed, Routine citalopram 2021-10 Yes 10mg 10 mg, Unive rs (CELEXA) 0-04 Oral, ity of tablet 10 14:00: DAILY, [place] mg 00 First dose Medical on [facility] 07/27/22 at 0900, Until Discontinu ed, Routine divalproex 2021-10 Yes 750mg 750 mg, Uni vers (DEPAKOTE) 0-04 Oral, ity of EC tablet 14:00: DAILY, [place] 750 mg 00 First dose Medical on [facility] 07/27/22 at 0900, Until Discontinu ed, Routine polyethylen 2021-10 Yes 17g 17 g, Unive rs e glycol 0-04 Oral, ity of 3350 powder 14:00: DAILY, [place] 17 g 00 First dose Medical on [facility] 07/27/22 at 0900, Until Discontinu ed, Routine citalopram 2021-10 Yes 10mg 10 mg, Unive rs (CELEXA) 0-04 Oral, ity of tablet 10 14:00: DAILY, [place] mg 00 First dose Medical on [facility] 07/27/22 at 0900, Until Discontinu ed, Routine aspirin 2021-10- No 325mg 325 mg, Unive rs E.C. 0-03 08-23 Oral, BID ity of (ECOTRIN) 22:00: 21:59 MEALS, 56 [place] tablet 325 00 :00 doses, Medical mg First dose Branch on Tue07/26/22 at 1700, Last dose on Tue08/23/22 at 0800, Routine aspirin 2021-10 No 325mg 325 mg, Unive rs E.C. 0-03 08-23 Oral, BID ity of (ECOTRIN) 22:00: 21:59 [place]ALS, 56 [place] tablet 325 00 :00 doses, Medical mg First dose Branch on Tue07/26/22 at 1700, Last dose on Tue08/23/22 at 0800, Routine ceFAZolin 2021-10 No 2000mg 2 g (2,000 Univers in 0.9% 0-03 10-04 mg), ity of sodium 18:15: 02:00 Intravenou [place] chloride 00 :05 s, Q8H Medical (ANCEF) 2 ABX, 2 Branch gram/100 mL doses, RTU 2 g First dose on Tue07/26/22 at 1315, Last dose on Tue07/26/22 at 2115, Administer over 30 Minutes, 100 mL
Reas on for Anti-Infec tive: Surgical Prophylaxi s
Surgi michelle Prophylaxi s: Orthopaedi c
Durat ion of therapy: within 24 hours of surgery ceFAZolin 2021-10 No 2000mg 2 g (2,000 [facility] in 0.9% 0-03 10-04 mg), ity of sodium 18:15: 02:00 Intravenou [place] chloride 00 :05 s, Q8H Medical (ANCEF) 2 ABX, 2 Branch gram/100 mL doses, RTU 2 g First dose on Tue07/26/22 at 1315, Last dose on Tue07/26/22 at 2115, Administer over 30 Minutes, 100 mL
Reas on for Anti-Infec tive: Surgical Prophylaxi s
Surgi michelle Prophylaxi s: Orthopaedi c
Durat ion of therapy: within 24 hours of surgery lactated 2021-10 Yes 500mL at 20 Univers ringers IV 0-03 mL/hr, 500 ity of infusion 17:45: mL, IV [place] 500 mL 00 Infusion, Medical CONTINUOUS Branch , Starting on Tue07/26/22 at 1245, Until Discontinu ed, Routine, PACU lactated 2021-10 Yes 500mL at 20 Univers ringers IV 0-03 mL/hr, 500 ity of infusion 17:45: mL, IV [place] 500 mL 00 Infusion, Medical CONTINUOUS Branch , Starting on Tue07/26/22 at 1245, Until Discontinu ed, Routine, PACU FENTanyl PF 2021-10 No 25ug 25 mcg, Un [facility] (SUBLIMAZE 0-03 10-03 Slow IV ity o f (PF)) 17:35: 20:00 Push, [place] injection 32 :27 Q5MIN PRN, Medi michelle 25 mcg 4 doses, Branch Starting on Tue07/26/22 at 1235, Until Tue07/26/22 at 1500, Routine, Pain (scale 4-6), PACU FENTanyl PF 2021-10- No 25ug 25 mcg, Un [facility] (SUBLIMAZE 0-03 10-03 Slow IV ity o f (PF)) 17:35: 20:00 Push, [place] injection 32 :27 Q5MIN PRN, Medi michelle 25 mcg 4 doses, Branch Starting on Tue07/26/22 at 1235, Until Tue07/26/22 at 1500, Routine, Pain (scale 4-6), PACU traMADoL 2021-10 Yes 50mg 50 mg, Univers (ULTRAM) 0-03 Oral, ity of tablet 50 17:10: Q6HPRN, [place] mg 20 Starting Medical on Tue Branch 07/26/22 at 1210, Until Discontinu ed, Routine, Pain (scale 4-6) dextrose 2021-10 Yes 250mL 250 mL, IV Un [place]la 10% (D10W) 0-03 Infusion, ity of bolus 17:10: PRN - SEE [place] infusion 20 INSTRUCTIO Medic al 250 mL NS, Branch Administer over 60 Minutes, Other, If blood glucose is < or = 70 mg/dL and patient is unable to swallow or has mental status changes, Starting on Tue07/26/22 at 1210
If blood glucose is < or = 70 mg/dL and patient is unable to swallow or has mental status changes (Give glucagon order if patient needs fluid restrictio n): IF IV access available: Dextrose 10%. 1. 125 mL (? bag) of D10W IV infusion - equivalent to 12.5 g dextrose 2. Blood glucose - draw blood glucose 15 minutes after D10W Administra tion. 3. If blood glucose is < 80 mg/dL, repeat.
morpHINE (4 2021-10 Yes 4mg 4 mg, Slow Univers mg/mL) 0-03 IV Push, ity of injection 4 17:10: Q4HPRN, [place] mg 20 Starting Medical on Mon Branch 07/26/22 at 1210, Until Discontinu ed, Routine, For pain unrelieved by oral medication s, or if patient is unable to tolerate oral pain medication . HYDROcodone 2021-10 Yes 1{tbl} 1 tablet, Univers -acetaminop 0-03 Oral, ity of hen (NORCO) 17:10: Q4HPRN, [place] 10-325 mg 20 Starting Medica l tablet 1 on Tue Branch tablet 07/26/22 at 1210, Until Discontinu ed, Routine, Pain (scale 7-10) ondansetron 2021-10 Yes 4mg 4 mg, Slow Univers (ZOFRAN 0-03 IV Push, ity of (PF)) 17:10: Q6HPRN, [place] injection 4 20 Starting Medi michelle mg on Tue Branch 07/26/22 at 1210, Until Discontinu ed, Routine, Nausea and Vomiting (N/V) glucagon 2021-10 Yes 1mg 1 mg, Univers (GLUCAGEN 0-03 Intramuscu ity of DIAGNOSTIC 17:10: [place], PRN, [place] KIT) 20 Starting Medical injection 1 on Tue Branch mg 07/26/22 at 1210, Until Discontinu ed, LUZ MARIA, blood glucose is < or = 70 mg/dL and patient is unable to swallow or has mental status changes traMADoL 2021-10 Yes 50mg 50 mg, Univers (ULTRAM) 0-03 Oral, ity of tablet 50 17:10: Q6HPRN, [place] mg 20 Starting Medical on Tue Branch 07/26/22 at 1210, Until Discontinu ed, Routine, Pain (scale 4-6) dextrose 2021-10 Yes 250mL 250 mL, IV Un m[place]la 10% (D10W) 0-03 Infusion, ity of bolus 17:10: PRN - SEE [place] infusion 20 INSTRUCTIO Medic al 250 mL NS, Branch Administer over 60 Minutes, Other, If blood glucose is < or = 70 mg/dL and patient is unable to swallow or has mental status changes, Starting on Tue07/26/22 at 1210
If blood glucose is < or = 70 mg/dL and patient is unable to swallow or has mental status changes (Give glucagon order if patient needs fluid restrictio n): IF IV access available: Dextrose 10%. 1. 125 mL (? bag) of D10W IV infusion - equivalent to 12.5 g dextrose 2. Blood glucose - draw blood glucose 15 minutes after D10W Administra tion. 3. If blood glucose is < 80 mg/dL, repeat.
morpHINE (4 2021-10 Yes 4mg 4 mg, Slow Univers mg/mL) 0-03 IV Push, ity of injection 4 17:10: Q4HPRN, [place] mg 20 Starting Medical on Mon Branch 07/26/22 at 1210, Until Discontinu ed, Routine, For pain unrelieved by oral medication s, or if patient is unable to tolerate oral pain medication . HYDROcodone 2021-10 Yes 1{tbl} 1 tablet, Univers -acetaminop 0-03 Oral, ity of hen (NORCO) 17:10: Q4HPRN, [place] 10-325 mg 20 Starting Medica l tablet 1 on [facility] tablet 07/26/22 at 1210, Until Discontinu ed, Routine, Pain (scale 7-10) ondansetron 2021-10 Yes 4mg 4 mg, Slow Univers (ZOFRAN 0-03 IV Push, ity of (PF)) 17:10: Q6HPRN, [place] injection 4 20 Starting Medi michelle mg on Mon Branch 07/26/22 at 1210, Until Discontinu ed, Routine, Nausea and Vomiting (N/V) glucagon 2021-10 Yes 1mg 1 mg, Univers (GLUCAGEN 0-03 Intramuscu ity of DIAGNOSTIC 17:10: [place], PRN, [place] KIT) 20 Starting Medical injection 1 on [facility] Branch mg 07/26/22 at 1210, Until Discontinu ed, LUZ MARIA, blood glucose is < or = 70 mg/dL and patient is unable to swallow or has mental status changes Ropi-Epi-Cl 2021-10- No PRN, Unive rs mario-Ketorol 0-03 10-03 Starting ity of ac (KARL) 16:40: 18:25 on [facility] [place] injection 00 :44 07/26/22 at Medi mihcelle syringe 1140, Branch Until 07/26/22 at 1325, Routine, Intra-op sodium 2021-10- No PRN, Univers chloride 0-03 10- Starting ity of 0.9 % 16:01: 18:25 on [facility] irrigation 00 :44 07/26/22 at Med ical solution 1101, Branch Until 07/26/22 at 1325, Intra-op sodium 2021-10- No PRN, Univers chloride 0-03 10- Starting ity of 0.9 % 15:59: 18:25 on [facility] irrigation 00 :44 07/26/22 at Med ical solution 1059, Branch Until 07/26/22 at 1325, Intra-op water for 2021-10- No PRN, Univers irrigation 0-03 10- Starting ity of irrigation 15:58: 18:25 on [facility] [place] solution 00 :44 07/26/22 at Medic al 1058, Branch Until 07/26/22 at 1325, Routine, Intra-op Melatonin 5 2021-10 Yes Take by Uni vers mg tablet 0-03 mouth. ity of 15:00: [address] citalopram 2021-10 Yes 10mg Take 10 mg U nivers 10 mg 0-03 by mouth ity of tablet 12:12: daily. [address] celecoxib 2021-10- No 200mg 200 mg, Uni vers (CELEBREX) 0-07-26 Oral, ity of capsule 200 11:30: 12:21 ONCE, 1 [place] mg 00 :00 dose, On [facility] 07/26/22 at 0630, Routine, DSU Pre-op pregabalin 2021-10- No 75mg 75 mg, Univ ers (LYRICA) 0- 10 Oral, ity of capsule 75 11:30: 12:21 ONCE, 1 [place] mg 00 :00 dose, On [facility] 07/26/22 at 0630, Routine, DSU Pre-op oxyCODONE 2021-10- No 10mg 10 mg, Unive rs CR 0- 10 Oral, ity of (oxyCONTIN 11:30: 12:22 ONCE, 1 [place] CR) 12 hr 00 :00 dose, On Medica l tablet 10 [facility] Branch mg 07/26/22 at 0630, Routine, DSU Pre-op
[employer] team member approving Restricted medication : MICHAEL ANDERSON lactated 2021-10- No 1000mL at 42 Unive rs ringers IV 0-03 10-03 mL/hr, ity of infusion 11:30: 12:17 1,000 mL, [place] 1,000 mL 00 :00 IV Medical Infusion, Branch ONCE, 1 dose, On [facility] 07/26/22 at 0630, Routine, DSU Pre-op celecoxib 2021-10- No 200mg 200 mg, Uni vers (CELEBREX) 0-03 10- Oral, ity of capsule 200 11:30: 12:21 ONCE, 1 [place] mg 00 :00 dose, On [facility] Branch 07/26/22 at 0630, Routine, DSU Pre-op pregabalin 2021-10 No 75mg 75 mg, Univ ers (LYRICA) 0-03 10- Oral, ity of capsule 75 11:30: 12:21 ONCE, 1 [place] mg 00 :00 dose, On [facility] 07/26/22 at 0630, Routine, DSU Pre-op oxyCODONE 2021-10 No 10mg 10 mg, Unive rs CR 0-03 10-03 Oral, ity of (oxyCONTIN 11:30: 12:22 ONCE, 1 [place] CR) 12 hr 00 :00 dose, On Medica l tablet 10 Tue Branch mg 07/26/22 at 0630, Routine, DSU Pre-op
[employer] team member approving Restricted medication : MICHAEL ANDERSON lactated 2021-10- No 1000mL at 42 Unive rs ringers IV 0-03 10-03 mL/hr, ity of infusion 11:30: 12:17 1,000 mL, [place] 1,000 mL 00 :00 IV Medical Infusion, Branch ONCE, 1 dose, On [facility] 07/26/22 at 0630, Routine, DSU Pre-op aspirin 81 2021-10 Yes 81mg Take 81 mg U nivers mg chewable 0-03 by mouth ity of tablet 06:59: daily. [address] Melatonin 5 2021-10 Yes Take by Uni vers mg tablet 0-03 mouth. ity of 06:17: [address] Melatonin 5 Yes Take by Uni vers mg tablet - mouth. ity of 10:11: [address] Melatonin 5 0 Yes Take by Uni vers mg tablet - mouth. ity of 10:11: [address] aspirin 81 0 Yes 81mg Take 81 mg U nivers mg chewable 9-27 by mouth ity of tablet 10:10: daily. [address] citalopram 0 Yes 10mg Take 10 mg U nivers 10 mg 9-27 by mouth ity of tablet 10:10: daily. [address] aspirin 81 0 Yes 81mg Take 81 mg U nivers mg chewable 9-27 by mouth ity of tablet 10:10: daily. [address] citalopram 0 Yes 10mg Take 10 mg U nivers 10 mg 9-27 by mouth ity of tablet 10:10: daily. [address] aspirin 81 0 Yes 81mg Take 81 mg U nivers mg chewable 9-27 by mouth ity of tablet 10:10: daily. [address] citalopram 0 Yes 10mg Take 10 mg U nivers 10 mg 9-27 by mouth ity of tablet 10:10: daily. [address] aspirin 81 0 Yes 81mg Take 81 mg [facility] tablet 07-06 by mouth Colleg e 15:01: daily. of 20 Medicin e Melatonin 5 0 Yes Take by Randall jonnie MG TABS - mouth as College 15:01: needed. of 20 Medicin e divalproex 2021-0 2021- No 250mg Take 250 [facility] (DEPAKOTE) 9-13 09-13 mg by [place] 250 MG ER 15:00: 00:00 mouth of tablet 29 :00 daily. Medicin e traMADoL 50 2021-0 Yes 4647 50mg Take 1 [facility] mg tablet 9-06 tablet by ity o f 00:00: mouth [place] 00 every 6 Medical (six) Branch hours as needed for Pain (scale 4-6). Indication s: acute pain traMADoL 50 2021-0 Yes 4647 50mg Take 1 [facility] mg tablet 9-06 tablet by ity o f 00:00: mouth [place] 00 every 6 Medical (six) Branch hours as needed for Pain (scale 4-6). Indication s: acute pain traMADoL 50 2021-0 Yes 4647 50mg Take 1 [facility] mg tablet 9-06 tablet by ity o f 00:00: mouth [place] 00 every 6 Medical (six) Branch hours as needed for Pain (scale 4-6). Indication s: acute pain traMADoL 50 2021-0 Yes 4647 50mg Take 1 [facility] mg tablet 9-06 tablet by ity o f 00:00: mouth [place] 00 every 6 Medical (six) Branch hours as needed for Pain (scale 4-6). Indication s: acute pain traMADoL 50 2021-0 Yes 4647 50mg Take 1 [facility] mg tablet 9-06 tablet by ity o f 00:00: mouth [place] 00 every 6 Medical (six) Branch hours as needed for Pain (scale 4-6). Indication s: acute pain traMADoL 50 2021-0 Yes 4647 50mg Take 1 [facility] mg tablet 9-06 tablet by ity o f 00:00: mouth [place] 00 every 6 Medical (six) Branch hours as needed for Pain (scale 4-6). Indication s: acute pain traMADoL 50 2021-0 Yes 4647 50mg Take 1 [facility] mg tablet 9-06 tablet by ity o f 00:00: mouth [place] 00 every 6 Medical (six) Branch hours as needed for Pain (scale 4-6). Indication s: acute pain traMADoL 50 2021-0 Yes 4647 50mg Take 1 [facility] mg tablet 9-06 tablet by ity o f 00:00: mouth [place] 00 every 6 Medical (six) Branch hours as needed for Pain (scale 4-6). Indication s: acute pain traMADoL 50 2021-0 2022- No 4647 50mg Take 1 [facility] mg tablet - 10-18 tablet by ity of 00:00: 00:00 mouth [place] 00 :00 every 6 Medical (six) Branch hours as needed for Pain (scale 4-6). Indication s: acute pain traMADoL 50 2021-0 2022- No 4647 50mg Take 1 [facility] mg tablet - 10-18 tablet by ity of 00:00: 00:00 mouth [place] 00 :00 every 6 Medical (six) Branch hours as needed for Pain (scale 4-6). Indication s: acute pain traMADoL 50 0 2021- No 4647 50mg Take 1 [facility] mg tablet 06-29 10-18 tablet by ity of 00:00: 00:00 mouth [place] 00 :00 every 6 Medical (six) Branch hours as needed for Pain (scale 4-6). Indication s: acute pain latanoprost 0 Yes 1[drp] Place 1 [facility] 0.005 % 8-21 Drop in ity of ophthalmic 00:00: [place] eyes [place] drops 00 at Medical bedtime. Branch latanoprost 0 Yes 1[drp] Place 1 [facility] 0.005 % 8-21 Drop in ity of ophthalmic 00:00: [place] eyes [place] drops 00 at Medical bedtime. Branch latanoprost 0 Yes 1[drp] Place 1 [facility] 0.005 % 8-21 Drop in ity of ophthalmic 00:00: [place] eyes [place] drops 00 at Medical bedtime. Branch latanoprost Yes 1[drp] Place 1 [facility] 0.005 % 8-21 Drop in ity of ophthalmic 00:00: [place] eyes [place] drops 00 at Medical bedtime. Branch latanoprost Yes 1[drp] Place 1 [facility] 0.005 % 8-21 Drop in ity of ophthalmic 00:00: [place] eyes [place] drops 00 at Medical bedtime. Branch latanoprost 0 Yes 1[drp] Place 1 [facility] 0.005 % 8-21 Drop in ity of ophthalmic 00:00: [place] eyes [place] drops 00 at Medical bedtime. Branch latanoprost 0 Yes 1[drp] Place 1 [facility] 0.005 % 8-21 Drop in ity of ophthalmic 00:00: [place] eyes [place] drops 00 at Medical bedtime. Branch latanoprost 2021-0 Yes 1[drp] Place 1 [facility] 0.005 % 8-21 Drop in ity of ophthalmic 00:00: [place] eyes [place] drops 00 at Medical bedtime. Branch latanoprost 2021-0 Yes 1[drp] Place 1 [facility] 0.005 % 8-21 Drop in ity of ophthalmic 00:00: [place] eyes [place] drops 00 at Medical bedtime. Branch latanoprost 2021- Yes 1[drp] Place 1 [facility] 0.005 % 8-21 Drop in ity of ophthalmic 00:00: both eyes [place] drops 00 at Medical bedtime. Branch latanoprost Yes 1[drp] Place 1 [facility] 0.005 % 8-21 Drop in ity of ophthalmic 00:00: [place] eyes [place] drops 00 at Medical bedtime. Branch latanoprost 2021- Yes 1[drp] Place 1 [facility] 0.005 % 8-21 Drop in ity of ophthalmic 00:00: [place] eyes [place] drops 00 at Medical bedtime. Branch latanoprost Yes 1[drp] Place 1 [facility] 0.005 % 8-21 Drop in ity of ophthalmic 00:00: both eyes [place] drops 00 at Medical bedtime. Branch latanoprost Yes 1[drp] Place 1 [facility] 0.005 % 8-21 Drop in ity of ophthalmic 00:00: both eyes [place] drops 00 at Medical bedtime. Branch latanoprost Yes 1[drp] Place 1 [facility] 0.005 % 8-21 Drop in ity of ophthalmic 00:00: both eyes [place] drops 00 at Medical bedtime. Branch latanoprost Yes 1[drp] Place 1 [facility] 0.005 % 8-21 Drop in ity of ophthalmic 00:00: [place] eyes [place] drops 00 at Medical bedtime. Branch latanoprost 2021-0 Yes 1[drp] Place 1 [facility] 0.005 % 8-21 Drop in ity of ophthalmic 00:00: [place] eyes [place] drops 00 at Medical bedtime. Branch latanoprost 2021-0 Yes 1[drp] Place 1 [facility] 0.005 % 8-21 Drop in ity of ophthalmic 00:00: [place] eyes [place] drops 00 at Medical bedtime. Branch latanoprost 2021- Yes 1[drp] Place 1 [facility] 0.005 % 8-21 Drop in ity of ophthalmic 00:00: [place] eyes [place] drops 00 at Medical bedtime. Branch latanoprost 2021-0 Yes 1[drp] Place 1 [facility] 0.005 % 8-21 Drop in ity of ophthalmic 00:00: [place] eyes [place] drops 00 at Medical bedtime. Branch latanoprost 2021-0 Yes 1[drp] Place 1 [facility] 0.005 % 8-21 Drop in ity of ophthalmic 00:00: [place] eyes [place] drops 00 at Medical bedtime. Branch latanoprost 2021-0 Yes 1[drp] Place 1 [facility] 0.005 % 8-21 Drop in ity of ophthalmic 00:00: [place] eyes [place] drops 00 at Medical bedtime. Branch latanoprost 2021-0 Yes 1[drp] Place 1 [facility] 0.005 % 8-21 Drop in ity of ophthalmic 00:00: [place] eyes [place] drops 00 at Medical bedtime. Branch latanoprost 2021-0 Yes 1[drp] Place 1 [facility] 0.005 % 8-21 Drop in ity of ophthalmic 00:00: [place] eyes [place] drops 00 at Medical bedtime. Branch latanoprost 2021- Yes 1[drp] Place 1 [facility] 0.005 % 8-21 Drop in ity of ophthalmic 00:00: [place] eyes [place] drops 00 at Medical bedtime. Branch latanoprost 2021-0 Yes 1[drp] Place 1 [facility] 0.005 % 8-21 Drop in ity of ophthalmic 00:00: [place] eyes [place] drops 00 at Medical bedtime. Branch latanoprost 2021-0 Yes 1[drp] Place 1 [facility] 0.005 % 8-21 Drop in ity of ophthalmic 00:00: [place] eyes [place] drops 00 at Medical bedtime. Branch latanoprost 2021-0 Yes 1[drp] Place 1 [facility] 0.005 % 8-21 Drop in ity of ophthalmic 00:00: [place] eyes [place] drops 00 at Medical bedtime. Branch latanoprost 2021-0 Yes 1[drp] Place 1 [facility] 0.005 % 8-21 Drop in ity of ophthalmic 00:00: [place] eyes [place] drops 00 at Medical bedtime. Branch latanoprost 2021-0 Yes 1[drp] Place 1 [facility] 0.005 % 8-21 Drop in ity of ophthalmic 00:00: [place] eyes [place] drops 00 at Medical bedtime. Branch latanoprost 2021-0 Yes 1[drp] Place 1 [facility] 0.005 % 8-21 Drop in ity of ophthalmic 00:00: both eyes [place] drops 00 at Medical bedtime. Branch latanoprost 2021-0 Yes 1[drp] Place 1 [facility] 0.005 % 8-21 Drop in ity of ophthalmic 00:00: [place] eyes [place] drops 00 at Medical bedtime. Branch latanoprost 2021-0 Yes 1[drp] Place 1 [facility] 0.005 % 8-21 Drop in ity of ophthalmic 00:00: [place] eyes [place] drops 00 at Medical bedtime. Branch latanoprost 2021-0 Yes 1[drp] Place 1 [facility] 0.005 % 8-21 Drop in ity of ophthalmic 00:00: [place] eyes [place] drops 00 at Medical bedtime. Branch latanoprost 2021-0 Yes 1[drp] Place 1 [facility] 0.005 % 8-21 Drop in ity of ophthalmic 00:00: [place] eyes [place] drops 00 at Medical bedtime. Branch latanoprost 2021-0 Yes 1[drp] Place 1 [facility] 0.005 % 8-21 Drop in ity of ophthalmic 00:00: [place] eyes [place] drops 00 at Medical bedtime. Branch latanoprost 2021-0 Yes 1[drp] Place 1 [facility] 0.005 % 8-21 Drop in ity of ophthalmic 00:00: [place] eyes [place] drops 00 at Medical bedtime. Branch latanoprost 2021-0 Yes 1[drp] Place 1 [facility] 0.005 % 8-21 Drop in ity of ophthalmic 00:00: [place] eyes [place] drops 00 at Medical bedtime. Branch latanoprost 2021-0 Yes 1[drp] Place 1 [facility] 0.005 % 8-21 Drop in ity of ophthalmic 00:00: [place] eyes [place] drops 00 at Medical bedtime. Branch latanoprost 2021-0 Yes 1[drp] Place 1 [facility] 0.005 % 8-21 Drop in ity of ophthalmic 00:00: both eyes [place] drops 00 at Medical bedtime. Branch latanoprost 2021-0 Yes 1[drp] Place 1 [facility] 0.005 % 8-21 Drop in ity of ophthalmic 00:00: both eyes [place] drops 00 at Medical bedtime. Branch latanoprost 2021-0 Yes 1[drp] Place 1 [facility] 0.005 % 8-21 Drop in ity of ophthalmic 00:00: both eyes [place] drops 00 at Medical bedtime. Branch latanoprost 2021-0 Yes 1[drp] Place 1 [facility] 0.005 % 8-21 Drop in ity of ophthalmic 00:00: [place] eyes [place] drops 00 at Medical bedtime. Branch latanoprost 2021-0 Yes 1[drp] Place 1 [facility] 0.005 % 8-21 Drop in ity of ophthalmic 00:00: both eyes [place] drops 00 at Medical bedtime. Branch latanoprost 2021-0 Yes 1[drp] Place 1 [facility] 0.005 % 8-21 Drop in ity of ophthalmic 00:00: [place] eyes [place] drops 00 at Medical bedtime. Branch latanoprost 2021-0 Yes 1[drp] Place 1 [facility] 0.005 % 8-21 Drop in ity of ophthalmic 00:00: [place] eyes [place] drops 00 at Medical bedtime. Branch latanoprost 2021-0 Yes 1[drp] Place 1 [facility] 0.005 % 8-21 Drop in ity of ophthalmic 00:00: both eyes [place] drops 00 at Medical bedtime. Branch latanoprost 2021-0 Yes 1[drp] Place 1 [facility] 0.005 % 8-21 Drop in ity of ophthalmic 00:00: both eyes [place] drops 00 at Medical bedtime. Branch latanoprost 2021-0 Yes 1[drp] Place 1 [facility] 0.005 % 8-21 Drop in ity of ophthalmic 00:00: [place] eyes [place] drops 00 at Medical bedtime. Branch DIVALPROEX 2021-0 Yes [id number] TAKE 1 [facility] 500 mg EC 8-08 TABLET BY ity o f tablet 00:00: MOUTH [place] 00 EVERY DAY Medical Branch DIVALPROEX 2022-0 Yes [id number] TAKE 1 [facility] 500 mg EC 8-08 TABLET BY ity o f tablet 00:00: MOUTH [place] 00 EVERY DAY Medical Branch DIVALPROEX 2022-0 Yes [id number] TAKE 1 [facility] 500 mg EC 8-08 TABLET BY ity o f tablet 00:00: MOUTH [place] 00 EVERY DAY Medical Branch DIVALPROEX 2022-0 Yes [id number] TAKE 1 [facility] 500 mg EC 8-08 TABLET BY ity o f tablet 00:00: MOUTH [place] 00 EVERY DAY Medical Branch DIVALPROEX 2022-0 Yes [id number] TAKE 1 [facility] 500 mg EC 8-08 TABLET BY ity o f tablet 00:00: MOUTH [place] 00 EVERY DAY Medical Branch DIVALPROEX 2022-0 Yes [id number] TAKE 1 [facility] 500 mg EC 8-08 TABLET BY ity o f tablet 00:00: [facility] EVERY DAY Medical Branch DIVALPROEX 2022-0 Yes [id number] TAKE 1 [facility] n[facility] 500 mg EC 8-08 TABLET BY ity o f tablet 00:00: MOUTH [place] 00 EVERY DAY Medical Branch DIVALPROEX 2022-0 Yes [id number] TAKE 1 [facility] 500 mg EC 8-08 TABLET BY ity o f tablet 00:00: [facility] 00 EVERY DAY Medical Branch DIVALPROEX 2022-0 Yes [id number] TAKE 1 [facility] 500 mg EC 8-08 TABLET BY ity o f tablet 00:00: [facility] 00 EVERY DAY Medical Branch DIVALPROEX 2022-0 Yes [id number] TAKE 1 [facility] 500 mg EC 8-08 TABLET BY ity o f tablet 00:00: MOUTH [place] 00 EVERY DAY Medical Branch DIVALPROEX 2022-0 Yes [id number] TAKE 1 [facility] 500 mg EC 8-08 TABLET BY ity o f tablet 00:00: MOUTH [place] 00 EVERY DAY Medical Branch DIVALPROEX 2022-0 Yes [id number] TAKE 1 [facility] 500 mg EC 8-08 TABLET BY ity o f tablet 00:00: MOUTH [place] 00 EVERY DAY Medical Branch DIVALPROEX 2022-0 Yes [id number] TAKE 1 [facility] 500 mg EC 8-08 TABLET BY ity o f tablet 00:00: MOUTH [place] 00 EVERY DAY Medical Branch DIVALPROEX 2022-0 Yes [id number] TAKE 1 [facility] 500 mg EC 8-08 TABLET BY ity o f tablet 00:00: MOUTH [place] 00 EVERY DAY Medical Branch DIVALPROEX 2022-0 Yes [id number] TAKE 1 [facility] 500 mg EC 8-08 TABLET BY ity o f tablet 00:00: MOUTH [place] EVERY DAY Medical Branch DIVALPROEX 2022-0 Yes [id number] TAKE 1 [facility] 500 mg EC 8-08 TABLET BY ity o f tablet 00:00: MOUTH [place] EVERY DAY Medical Branch DIVALPROEX 2022-0 Yes [id number] TAKE 1 [facility] 500 mg EC 8-08 TABLET BY ity o f tablet 00:00: MOUTH [place] EVERY DAY Medical Branch DIVALPROEX 2022-0 Yes [id number] TAKE 1 [facility] 500 mg EC 8-08 TABLET BY ity o f tablet 00:00: MOUTH [place] EVERY DAY Medical Branch DIVALPROEX 2022-0 Yes [id number] TAKE 1 [facility] 500 mg EC 8-08 TABLET BY ity o f tablet 00:00: MOUTH [place] EVERY DAY Medical Branch DIVALPROEX 2022-0 Yes [id number] TAKE 1 [facility] 500 mg EC 8-08 TABLET BY ity o f tablet 00:00: MOUTH [place] EVERY DAY Medical Branch DIVALPROEX 2022-0 Yes [id number] TAKE 1 [facility] 500 mg EC 8-08 TABLET BY ity o f tablet 00:00: MOUTH [place] EVERY DAY Medical Branch DIVALPROEX 2022-0 Yes [id number] TAKE 1 [facility] 500 mg EC 8-08 TABLET BY ity o f tablet 00:00: MOUTH [place] EVERY DAY Medical Branch DIVALPROEX 2022-0 Yes [id number] TAKE 1 [facility] 500 mg EC 8-08 TABLET BY ity o f tablet 00:00: MOUTH [place] EVERY DAY Medical Branch DIVALPROEX 2022-0 Yes [id number] TAKE 1 [facility] 500 mg EC 8-08 TABLET BY ity o f tablet 00:00: MOUTH [place] EVERY DAY Medical Branch DIVALPROEX 2022-0 Yes [id number] TAKE 1 [facility] 500 mg EC 8-08 TABLET BY ity o f tablet 00:00: MOUTH [place] EVERY DAY Medical Branch DIVALPROEX 2022-0 Yes [id number] TAKE 1 [facility] 500 mg EC 8-08 TABLET BY ity o f tablet 00:00: MOUTH [place] 00 EVERY DAY Medical Branch DIVALPROEX 2022-0 Yes [id number] TAKE 1 [facility] 500 mg EC 8-08 TABLET BY ity o f tablet 00:00: MOUTH [place] 00 EVERY DAY Medical Branch DIVALPROEX 2022-0 Yes [id number] TAKE 1 [facility] 500 mg EC 8-08 TABLET BY ity o f tablet 00:00: MOUTH [place] 00 EVERY DAY Medical Branch DIVALPROEX 2022-0 Yes [id number] TAKE 1 [facility] 500 mg EC 8-08 TABLET BY ity o f tablet 00:00: MOUTH [place] 00 EVERY DAY Medical Branch DIVALPROEX 2022-0 Yes [id number] TAKE 1 [facility] 500 mg EC 8-08 TABLET BY ity o f tablet 00:00: [facility] 00 EVERY DAY Medical Branch DIVALPROEX 2022-0 Yes [id number] TAKE 1 [facility] 500 mg EC 8-08 TABLET BY ity o f tablet 00:00: [facility] EVERY DAY Medical Branch DIVALPROEX 2022-0 Yes [id number] TAKE 1 [facility] 500 mg EC 8-08 TABLET BY ity o f tablet 00:00: [facility] 00 EVERY DAY Medical Branch DIVALPROEX 2022-0 Yes [id number] TAKE 1 [facility] 500 mg EC 8-08 TABLET BY ity o f tablet 00:00: [facility] 00 EVERY DAY Medical Branch DIVALPROEX 2022-0 Yes [id number] TAKE 1 [facility] 500 mg EC 8-08 TABLET BY ity o f tablet 00:00: [facility] 00 EVERY DAY Medical Branch DIVALPROEX 2022-0 Yes [id number] TAKE 1 [facility] 500 mg EC 8-08 TABLET BY ity o f tablet 00:00: MOUTH [place] 00 EVERY DAY Medical Branch DIVALPROEX 2022-0 Yes [id number] TAKE 1 [facility] 500 mg EC 8-08 TABLET BY ity o f tablet 00:00: [facility] 00 EVERY DAY Medical Branch DIVALPROEX 2022-0 Yes [id number] TAKE 1 [facility] 500 mg EC 8-08 TABLET BY ity o f tablet 00:00: [facility] 00 EVERY DAY Medical Branch DIVALPROEX 2022-0 Yes [id number] TAKE 1 [facility] 500 mg EC 8-08 TABLET BY ity o f tablet 00:00: MOUTH [place] 00 EVERY DAY Medical Branch DIVALPROEX 2022-0 Yes [id number] TAKE 1 [facility] 500 mg EC 8-08 TABLET BY ity o f tablet 00:00: MOUTH [place] 00 EVERY DAY Medical Branch DIVALPROEX 2022-0 Yes [id number] TAKE 1 [facility] 500 mg EC 8-08 TABLET BY ity o f tablet 00:00: MOUTH [place] 00 EVERY DAY Medical Branch DIVALPROEX 2022-0 Yes [id number] TAKE 1 [facility] 500 mg EC 8-08 TABLET BY ity o f tablet 00:00: MOUTH [place] 00 EVERY DAY Medical Branch DIVALPROEX 2022-0 Yes [id number] TAKE 1 [facility] 500 mg EC 8-08 TABLET BY ity o f tablet 00:00: MOUTH [place] 00 EVERY DAY Medical Branch DIVALPROEX 2022-0 Yes [id number] TAKE 1 [facility] 500 mg EC 8-08 TABLET BY ity o f tablet 00:00: MOUTH [place] EVERY DAY Medical Branch DIVALPROEX 2022-0 Yes [id number] TAKE 1 [facility] 500 mg EC 8-08 TABLET BY ity o f tablet 00:00: MOUTH [place] 00 EVERY DAY Medical Branch DIVALPROEX 2022-0 Yes [id number] TAKE 1 [facility] 500 mg EC 8-08 TABLET BY ity o f tablet 00:00: MOUTH [place] 00 EVERY DAY Medical Branch DIVALPROEX 2022-0 Yes [id number] TAKE 1 [facility] 500 mg EC 8-08 TABLET BY ity o f tablet 00:00: MOUTH [place] 00 EVERY DAY Medical Branch DIVALPROEX 2022-0 Yes [id number] TAKE 1 [facility] 500 mg EC 8-08 TABLET BY ity o f tablet 00:00: MOUTH [place] 00 EVERY DAY Medical Branch DIVALPROEX 2022-0 Yes [id number] TAKE 1 [facility] 500 mg EC 8-08 TABLET BY ity o f tablet 00:00: MOUTH [place] 00 EVERY DAY Medical Branch DIVALPROEX 2022-0 Yes [id number] TAKE 1 [facility] 500 mg EC 8-08 TABLET BY ity o f tablet 00:00: MOUTH [place] 00 EVERY DAY Medical Branch DIVALPROEX 2022-0 Yes [id number] TAKE 1 [facility] 500 mg EC 8-08 TABLET BY ity o f tablet 00:00: MOUTH [place] 00 EVERY DAY Medical Branch silver 2021-2- No [id number] Apply to [facility] sulfADIAZIN 04-27 [id number] area(s) 2 ity of E 00:00: 00:00 (two) [place] (SILVADENE) 00 :00 times Medical 1 % cream daily. Branch hydrocortis 2- No [id number] Apply to [facility] one 2.5 % 03-10 area(s) 3 ity of cream 00:00: 00:00 (three) [place] 00 :00 times Medical daily as Branch needed for Itching. aspirin 81 0 Yes 81mg Take 81 mg [facility] MG tablet 4-12 by mouth Colleg e 15:41: daily. of 40 Medicin e Metoprolol 0 Yes Take by [facility] Succinate 4-12 mouth. [facility] 25 MG CS24 15:37: of 44 Medicin e Metoprolol 0 Yes Take by [facility] Succinate 4-12 mouth. [place] 25 MG CS24 15:37: of 44 Medicin e divalproex Yes 250mg Take 250 [facility] (DEPAKOTE) 4-12 mg by [place] 250 MG ER 15:37: mouth of tablet 33 daily. Medicin e Melatonin 5 Yes Take by [facility] MG TABS 4-12 mouth as College 15:37: needed. of 33 Medicin e divalproex 0 Yes TAKE 1 [facility] (DEPAKOTE) 3-06 TABLET BY [facility] 250 MG EC 00:00: MOUTH of tablet 00 EVERY DAY Medicin e divalproex 0 Yes TAKE 1 [facility] (DEPAKOTE) 3-06 TABLET BY [facility] 250 MG EC 00:00: MOUTH of tablet 00 EVERY DAY Medicin e citalopram 0 Yes 10mg Take 10 mg [facility] 10 mg 2-07 by mouth ity of tablet 16:40: daily. [place] [address] Medical Branch citalopram 0 Yes 10mg Take 10 mg [facility] 10 mg 2-07 by mouth ity of tablet 16:40: daily. [address] Branch citalopram 0 Yes 10mg Take 10 mg [facility] 10 mg 2-07 by mouth ity of tablet 16:40: daily. [address] Branch citalopram Yes 10mg Take 10 mg [facility] 10 mg 2-07 by mouth ity of tablet 16:40: daily. [address] citalopram Yes 10mg Take 10 mg [facility] 10 mg 2-07 by mouth ity of tablet 16:40: daily. [address] citalopram Yes 10mg Take 10 mg [facility] 10 mg 2-07 by mouth ity of tablet 16:40: daily. [address] aspirin 81 Yes 81mg Take 81 mg [facility] MG tablet 1-03 by mouth [facility] 13:24: daily. of Medicin e divalproex Yes 250mg Take 250 [facility] (DEPAKOTE) 1-03 mg by [facility] 250 MG ER 13:24: mouth of tablet 31 daily. Medicin e Melatonin 5 Yes Take by [facility] MG TABS 1-03 mouth as College 13:24: needed. of Medicin e Metoprolol Yes Take by [facility] Succinate 1-03 mouth. [place] 25 MG CS24 13:24: of Medicin e DIVALPROEX 2020-10- No TAKE 1 [facility] ers 250 mg EC 006-24 TABLET BY ity of tablet 00:00: 00:00 MOUTH [place] 00 :00 EVERY DAY Medical Branch aspirin-michelle 2020-2020- No 81mg Take 81 mg [facility] cium 5-06 05-06 by mouth ity of carbonate 21:56: 00:00 daily. [place] 81 mg-300 02 :00 Medical mg Branch calcium(777 mg) Tab doxycycline Yes Cellulitis 100mg Take 1 [facility] hyclate 100 5-06 of [place] of tablet by ity of mg tablet 00:00: hand mouth 2 [place] 00 (two) Medical times Branch daily. acetaminoph Yes Cellulitis 650mg Take 1 [facility] en (TYLENOL 5-06 of [place] of tablet by ity of 8 HOUR) 650 00:00: hand mouth [place] mg CR 00 every 8 Medical tablet (eight) Branch hours as needed for Pain. bacitracin- Yes Cellulitis Apply to [facility] neomycin-po 5-06 of [facility] of area(s) 2 ity of lymyxin 00:00: hand (two) [place] b-hydrocort 00 times Medical isone 1 % daily. Branch ointment Apply 4g QID on affected area doxycycline Yes Cellulitis 100mg Take 1 [facility] hyclate 100 5-06 of [facility] of tablet by ity of mg tablet 00:00: hand mouth 2 [place] 00 (two) Medical times Branch daily. acetaminoph Yes Cellulitis 650mg Take 1 [facility] en (TYLENOL 5-06 of [place] of tablet by ity of 8 HOUR) 650 00:00: hand mouth [place] mg CR 00 every 8 Medical tablet (eight) Branch hours as needed for Pain. bacitracin- Yes Cellulitis Apply to [facility] neomycin-po 5-06 of [place] of area(s) 2 ity of lymyxin 00:00: hand (two) [place] b-hydrocort 00 times Medical isone 1 % daily. Branch ointment Apply 4g QID on affected area doxycycline Yes Cellulitis 100mg Take 1 [facility] hyclate 100 5-06 of palm of tablet by ity of mg tablet 00:00: hand mouth 2 [place] 00 (two) Medical times Branch daily. acetaminoph Yes Cellulitis 650mg Take 1 [facility] en (TYLENOL 5-06 of palm of tablet by ity of 8 HOUR) 650 00:00: hand mouth [place] mg CR 00 every 8 Medical tablet (eight) Branch hours as needed for Pain. bacitracin- Yes Cellulitis Apply to [facility] neomycin-po 5-06 of [facility] of area(s) 2 ity of lymyxin 00:00: hand (two) [place] b-hydrocort 00 times Medical isone 1 % daily. Branch ointment Apply 4g QID on affected area aspirin 81 2020-0 Yes 81mg Take 81 mg [facility] MG tablet 4-29 by mouth [facility] 18:42: daily. of 53 Medicin e divalproex 0 Yes 250mg Take 250 [facility] (DEPAKOTE) 4-29 mg by [facility] 250 MG ER 18:42: mouth of tablet 53 daily. Medicin e Melatonin 5 0 Yes Take by [facility] MG TABS 4-29 mouth as [facility] 18:42: needed. of 53 Medicin e citalopram Yes TAKE 1 [facility] (CELEXA) 10 4-05 TABLET BY [facility] MG tablet 00:00: MOUTH of EVERY DAY Medicin e citalopram 0 Yes TAKE 1 [facility] (CELEXA) 10 4-05 TABLET BY [facility] MG tablet 00:00: MOUTH of EVERY DAY Medicin e citalopram Yes TAKE 1 [facility] (CELEXA) 10 4-05 TABLET BY [facility] MG tablet 00:00: MOUTH of EVERY DAY Medicin e citalopram Yes TAKE 1 [facility] (CELEXA) 10 4-05 TABLET BY [facility] MG tablet 00:00: MOUTH of EVERY DAY Medicin e latanoprost Yes INSTILL 1 [facility] (XALATAN) 3-14 DROP INTO Colle ge 0.005 % 00:00: BOTH EYES of ophthalmic 00 AT BEDTIME Med icin solution e latanoprost 0 Yes INSTILL 1 [facility] (XALATAN) 3-14 DROP INTO Colle ge 0.005 % 00:00: BOTH EYES of ophthalmic 00 AT BEDTIME Med icin solution e latanoprost 0 Yes INSTILL 1 [facility] (XALATAN) 3-14 DROP INTO Colle ge 0.005 % 00:00: BOTH EYES of ophthalmic 00 AT BEDTIME Med icin solution e latanoprost 2020-0 Yes INSTILL 1 [facility] (XALATAN) 3-14 DROP INTO Colle ge 0.005 % 00:00: BOTH EYES of ophthalmic 00 AT BEDTIME Med icin solution e DIVALPROEX Yes TAKE 1 [facility] 250 mg EC 1-23 TABLET BY ity o f tablet 00:00: MOUTH [place] EVERY DAY Medical Branch DIVALPROEX 0 Yes TAKE 1 [facility] 250 mg EC 1-23 TABLET BY ity o f tablet 00:00: MOUTH [place] EVERY DAY Medical Branch DIVALPROEX 2020-0 Yes TAKE 1 [facility] 250 mg EC 1-23 TABLET BY ity o f tablet 00:00: MOUTH [place] EVERY DAY Medical Branch DIVALPROEX Yes TAKE 1 [facility] 250 mg EC 1-23 TABLET BY ity o f tablet 00:00: MOUTH [place] 00 EVERY DAY Medical Branch DIVALPROEX 2020-0 Yes 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 DIVALPROEX 2020-0 Yes 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 of 39 Medicin e divalproex 2020-0 Yes 250mg Take 250 [facility] (DEPAKOTE) 8-03 mg by [place] 250 MG ER 18:10: mouth of tablet 39 daily. Medicin e Melatonin 5 2020-0 Yes Take by [facility] MG TABS 8-03 mouth as [facility] 18:10: needed. of 39 Medicin e Melatonin 5 2020-0 Yes Take by [facility] MG TABS 4-13 mouth. College 14:21: of 37 Medicin e eszopiclone 2020-0 2020- No 3mg Take 3 mg [facility] (LUNESTA) 3 4-13 04-13 by mouth [facility] MG TABS 14:18: 00:00 nightly as of 37 :00 needed. Medicin e aspirin 81 2020-0 Yes 81mg Take 81 mg [facility] MG tablet 4-13 by mouth [facility] 14:18: daily. of 13 Medicin e divalproex 2020-0 Yes 250mg Take 250 [facility] (DEPAKOTE) 4-13 mg by [place] 250 MG ER 14:18: mouth of tablet 13 daily. Medicin e fluticasone 2020-0 Yes 1{spray 1 [place] by [facility] (FLONASE) 4-13 } Each College 50 MCG/ACT 00:00: Nostril of nasal spray 00 route two Med icin times e daily. fexofenadin 2020-0 Yes 180mg Take 1 Tab [facility] e (SUZIE) 4-13 by mouth [place] [facility] 180 MG 00:00: two times of tablet 00 daily. Medicin e montelukast 2020-0 Yes 10mg Take 1 Tab [facility] (SINGULAIR) 4-13 by mouth [facility] 10 MG 00:00: daily. of tablet 00 Medicin e fluticasone 2020-0 Yes 1{spray 1 [place] [facility] (FLONASE) 4-13 } Each [facility] 50 MCG/ACT 00:00: Nostril of nasal spray 00 route two Med icin times e daily. fexofenadin 2020-0 Yes 180mg Take 1 Tab [facility] e (SUZIE) 4-13 by mouth [facility] 180 MG 00:00: two times of tablet 00 daily. Medicin e montelukast 2020-0 Yes 10mg Take 1 Tab [facility] (SINGULAIR) 4-13 by mouth [facility] 10 MG 00:00: daily. of tablet 00 Medicin e fluticasone 2020-0 Yes 1{spray 1 [place] by [facility] (FLONASE) 4-13 } Each [facility] 50 MCG/ACT 00:00: Nostril of nasal spray 00 route two Med icin times e daily. fexofenadin 2020-0 Yes 180mg Take 1 Tab [facility] e (SUZIE) 4-13 by mouth [facility] 180 MG 00:00: two times of tablet 00 daily. Medicin e montelukast 2020-0 Yes 10mg Take 1 Tab [facility] (SINGULAIR) 4-13 by mouth [facility] 10 MG 00:00: daily. of tablet 00 Medicin e fluticasone 2020-0 Yes 1{spray 1 [place] by [facility] (FLONASE) 4-13 } Each [facility] 50 MCG/ACT 00:00: Nostril of nasal spray 00 route two Med icin times e daily. fexofenadin 2020-0 Yes 180mg Take 1 Tab [facility] e (SUZIE) 4-13 by mouth [facility] 180 MG 00:00: two times of tablet 00 daily. Medicin e montelukast 2020-0 Yes 10mg Take 1 Tab [facility] (SINGULAIR) 4-13 by mouth [facility] 10 MG 00:00: daily. of tablet 00 Medicin e fluticasone 2020-0 Yes 1{spray 1 [place] by [facility] (FLONASE) 4-13 } Each [facility] 50 MCG/ACT 00:00: Nostril of nasal spray 00 route two Med icin times e daily. fexofenadin 2020-0 Yes 180mg Take 1 Tab [facility] e (SUZIE) 4-13 by mouth [facility] 180 MG 00:00: two times of tablet 00 daily. Medicin e montelukast 2020-0 Yes 10mg Take 1 Tab [facility] (SINGULAIR) 4-13 by mouth [facility] 10 MG 00:00: daily. of tablet 00 Medicin e fluticasone 2020-0 Yes 1{spray 1 [place] [facility] (FLONASE) 4-13 } Each [facility] 50 MCG/ACT 00:00: Nostril of nasal spray 00 route two Med icin times e daily. fexofenadin 2020-0 Yes 180mg Take 1 Tab [facility] e (SUZIE) 4-13 by mouth [facility] 180 MG 00:00: two times of tablet 00 daily. Medicin e montelukast 2020-0 Yes 10mg Take 1 Tab [facility] (SINGULAIR) 4-13 by mouth [facility] 10 MG 00:00: daily. of tablet 00 Medicin e aspirin-michelle 2020-0 Yes 81mg Take 81 mg Univers cium 3-16 by mouth ity of carbonate 16:18: daily. [place] 81 mg-300 12 Medical mg Branch calcium(777 mg) Tab azithromyci 2020-0 Yes Rhinosinusi 500mg Take 1 Univers n 500 mg 2-18 tis tablet by ity of tablet 00:00: mouth [place] 00 daily. Medical Branch azithromyci 2020-0 Yes Rhinosinusi 500mg Take 1 Univers n 500 mg 2-18 tis tablet by ity of tablet 00:00: mouth [place] 00 daily. Medical Branch azithromyci 2020-0 Yes Rhinosinusi 500mg Take 1 Univers n 500 mg 2-18 tis tablet by ity of tablet 00:00: mouth [place] 00 daily. Medical Branch azithromyci 2020-0 Yes Rhinosinusi 500mg Take 1 Univers n 500 mg 2-18 tis tablet by ity of tablet 00:00: mouth [place] 00 daily. Medical Branch divalproex 2020-0 Yes 250mg Take 250 Un mikayla ER 2-13 mg by ity of (DEPAKOTE 15:28: mouth [place] ER) 250 mg 09 every 24 Medic al 24 hr (twenty-fo Branch tablet ur) hours. aspirin 81 2020-0 Yes 81mg Take 81 mg U nivers mg chewable 2-13 by mouth ity of tablet 15:28: daily. [place] [address] Medical Branch divalproex 2020-0 Yes 250mg Take 250 Un mikayla ER 2-13 mg by ity of (DEPAKOTE 15:28: mouth [place] ER) 250 mg 09 every 24 Medic al 24 hr (twenty-fo Branch tablet ur) hours. aspirin 81 2020-0 Yes 81mg Take 81 mg U nivers mg chewable 2-13 by mouth ity of tablet 15:28: daily. [place] [address] Medical Branch divalproex 2020-0 Yes 250mg Take 250 Un m[place] ER 2-13 mg by ity of (DEPAKOTE 15:28: mouth [place] ER) 250 mg 09 every 24 Medic al 24 hr (twenty-fo Branch tablet ur) hours. aspirin 81 2020-0 Yes 81mg Take 81 mg U nivers mg chewable 2-13 by mouth ity of tablet 15:28: daily. [place] [address] Medical Branch divalproex 2020-0 Yes 250mg Take 250 Un [place] ER 2-13 mg by ity of (DEPAKOTE 15:28: mouth [place] ER) 250 mg 09 every 24 Medic al 24 hr (twenty-fo Branch tablet ur) hours. aspirin 81 2020-0 Yes 81mg Take 81 mg U nivers mg chewable 2-13 by mouth ity of tablet 15:28: daily. [address] Branch aspirin 81 2020-0 Yes 81mg Take 81 mg U nivers mg chewable 2-13 by mouth ity of tablet 09:28: daily. [address] Branch aspirin 81 2020-0 Yes 81mg Take 81 mg U nivers mg chewable 2-13 by mouth ity of tablet 09:28: daily. [address] aspirin 81 2020-0 Yes 81mg Take 81 mg U nivers mg chewable 2-13 by mouth ity of tablet 09:28: daily. [address] Branch aspirin 81 2020-0 Yes 81mg Take 81 mg U nivers mg chewable 2-13 by mouth ity of tablet 09:28: daily. [address] aspirin 81 2020-0 Yes 81mg Take 81 mg U nivers mg chewable 2-13 by mouth ity of tablet 09:28: daily. [address] aspirin 81 2020-0 Yes 81mg Take 81 mg U nivers mg chewable 2-13 by mouth ity of tablet 09:28: daily. [address] eszopiclone 2018-10 Yes 3mg Take 3 mg [facility] (LUNESTA) 3 0-23 by mouth [facility] MG TABS 19:31: nightly as of 07 needed. Medicin e aspirin 81 2018-10 Yes 81mg Take 81 mg [facility] MG tablet 0-23 by mouth Colleg e 19:31: daily. of 07 Medicin e divalproex 2018-10 Yes 250mg Take 250 [facility] (DEPAKOTE) 0-23 mg by [place] 250 MG ER 19:31: mouth of tablet 07 daily. Medicin e metoprolol 2018-10- No 100mg Take 100 [facility] (TOPROL-XL) 0[facility]23 [facility] XL 19:30: 00:00 mouth of tablet 45 :00 daily. Medicin e EPINEPHrine 2018-10- No Inject as [facility] (EPIPEN) 0-23 10-23 directed. Colle ge 0.3 19:29: 00:00 of MG/0.3ML 50 :00 Medicin JENIFER e Budesonide- 2018-10- No 2{puff} 2 Puffs by [facility] Formoterol 0-23 10-23 Nasal College Fumarate 19:26: 00:00 [place] of 80-4.5 49 :00 route. Medicin MCG/ACT e AERO aspirin 325 2018-10 2019- No 325mg Take 325 [facility] MG tablet 0-23 10-23 mg by College 19:26: 00:00 mouth of 31 :00 daily. Medicin e divalproex 2019- No 500mg Take 1 Tab [facility] (DEPAKOTE) 7-25 10-23 by mouth [place] [facility] 500 MG EC 00:00: 00:00 daily. of tablet 00 :00 Medicin e EPINEPHrine Yes Allergic Use daily Univers (EPIPEN 6-12 reaction, as needed it y of 2-JUAN) 0.3 00:00: subsequent [place] mg/0.3 mL 00 encounter allergic [facility] EP[facility] Yes Allergic Use daily [facility] (EPIPEN 6-12 reaction, as needed it y of 2-JUAN) 0.3 00:00: subsequent for [place] mg/0.3 mL 00 encounter allergic M edical injection reactions [facility] EPINEPHrine Yes Allergic Use daily Univers (EPIPEN 6-12 reaction, as needed it y of 2-JUAN) 0.3 00:00: subsequent for [place] mg/0.3 mL 00 encounter allergic M edical injection reactions [facility] EPINEPHrine Yes Allergic Use daily Univers (EPIPEN 6-12 reaction, as needed it y of 2-JUAN) 0.3 00:00: subsequent for [place] mg/0.3 mL 00 encounter allergic M edical injection reactions [facility] EPINEPHrine Yes [id number] Use daily Univers (EPIPEN 6-12 as needed ity of 2-JUAN) 0.3 00:00: for [place] mg/0.3 mL 00 allergic Medica l injection reactions [facility] EPINEPHrine Yes [id number] Use daily Univers (EPIPEN 6-12 as needed ity of 2-JUAN) 0.3 00:00: for [place] mg/0.3 mL 00 allergic Medica l injection reactions [facility] EPINEPHrine Yes [id number] Use daily Univers (EPIPEN 6-12 as needed ity of 2-JUAN) 0.3 00:00: for [place] mg/0.3 mL 00 allergic Medica l [facility] EPINEPHrine Yes [id number] Use daily Univers (EPIPEN 6-12 as needed ity of 2-JUAN) 0.3 00:00: for [place] mg/0.3 mL 00 allergic Medica l [facility] EPINEPHrine Yes [id number] Use daily Univers (EPIPEN 6-12 as needed ity of 2-JUAN) 0.3 00:00: for [place] mg/0.3 mL 00 allergic Medica l [facility] EPINEPHrine Yes [id number] Use daily Univers (EPIPEN 6-12 as needed ity of 2-JUAN) 0.3 00:00: for [place] mg/0.3 mL 00 allergic Medica l injection reactions [facility] EPINEPHrine 2019 Yes [id number] Use daily Univers (EPIPEN 6-12 as needed ity of 2-JUAN) 0.3 00:00: for [place] mg/0.3 mL 00 allergic Medica l injection reactions [facility] EPINEPHrine 2019 Yes [id number] Use daily Univers (EPIPEN 6-12 as needed ity of 2-JUAN) 0.3 00:00: for [place] mg/0.3 mL 00 allergic Medica l injection reactions [facility] EPINEPHrine Yes [id number] Use daily Univers (EPIPEN 6-12 as needed ity of 2-JUAN) 0.3 00:00: for [place] mg/0.3 mL 00 allergic Medica l [facility] EPINEPHrine Yes [id number] Use daily Univers (EPIPEN 6-12 as needed ity of 2-JUAN) 0.3 00:00: for [place] mg/0.3 mL 00 allergic Medica l injection reactions [facility] EPINEPHrine Yes [id number] Use daily Univers (EPIPEN 6-12 as needed ity of 2-JUAN) 0.3 00:00: for [place] mg/0.3 mL 00 allergic Medica l injection reactions [facility] EPINEPHrine Yes [id number] Use daily Univers (EPIPEN 6-12 as needed ity of 2-JUAN) 0.3 00:00: for [place] mg/0.3 mL 00 allergic Medica l injection reactions [facility] EPINEPHrine Yes [id number] Use daily Univers (EPIPEN 6-12 as needed ity of 2-JUAN) 0.3 00:00: for [place] mg/0.3 mL 00 allergic Medica l injection reactions [facility] EPINEPHrine Yes [id number] Use daily Univers (EPIPEN 6-12 as needed ity of 2-JUAN) 0.3 00:00: for [place] mg/0.3 mL 00 allergic Medica l injection reactions [facility] EPINEPHrine Yes [id number] Use daily Univers (EPIPEN 6-12 as needed ity of 2-JUAN) 0.3 00:00: for [place] mg/0.3 mL 00 allergic Medica l injection reactions [facility] EPINEPHrine Yes [id number] Use daily Univers (EPIPEN 6-12 as needed ity of 2-JUAN) 0.3 00:00: for [place] mg/0.3 mL 00 allergic Medica l injection reactions [facility] EPINEPHrine 2019 Yes [id number] Use daily Univers (EPIPEN 6-12 as needed ity of 2-JUAN) 0.3 00:00: for [place] mg/0.3 mL 00 allergic Medica l injection reactions [facility] EPINEPHrine 2019 Yes [id number] Use daily Univers (EPIPEN 6-12 as needed ity of 2-JUAN) 0.3 00:00: for [place] mg/0.3 mL 00 allergic Medica l injection reactions [facility] EPINEPHrine Yes [id number] Use daily Univers (EPIPEN 6-12 as needed ity of 2-JUAN) 0.3 00:00: for [place] mg/0.3 mL 00 allergic Medica l injection reactions [facility] EPINEPHrine Yes [id number] Use daily Univers (EPIPEN 6-12 as needed ity of 2-JUAN) 0.3 00:00: for [place] mg/0.3 mL 00 allergic Medica l injection reactions [facility] EPINEPHrine Yes [id number] Use daily Univers (EPIPEN 6-12 as needed ity of 2-JUAN) 0.3 00:00: for [place] mg/0.3 mL 00 allergic Medica l injection reactions [facility] EPINEPHrine Yes [id number] Use daily Univers (EPIPEN 6-12 as needed ity of 2-JUAN) 0.3 00:00: for [place] mg/0.3 mL 00 allergic Medica l injection reactions [facility] EPINEPHrine Yes [id number] Use daily Univers (EPIPEN 6-12 as needed ity of 2-JUAN) 0.3 00:00: for [place] mg/0.3 mL 00 allergic Medica l injection reactions [facility] EPINEPHrine Yes [id number] Use daily Univers (EPIPEN 6-12 as needed ity of 2-JUAN) 0.3 00:00: for [place] mg/0.3 mL 00 allergic Medica l injection reactions [facility] EPINEPHrine Yes [id number] Use daily Univers (EPIPEN 6-12 as needed ity of 2-JUAN) 0.3 00:00: for [place] mg/0.3 mL 00 allergic Medica l injection reactions Branc h EPINEPHrine 2019 Yes [id number] Use daily Univers (EPIPEN 6-12 as needed ity of 2-JUAN) 0.3 00:00: for [place] mg/0.3 mL 00 allergic Medica l injection reactions [facility] EPINEPHrine 2019 Yes [id number] Use daily Univers (EPIPEN 6-12 as needed ity of 2-JUAN) 0.3 00:00: for [place] mg/0.3 mL 00 allergic Medica l injection reactions [facility] EPINEPHrine Yes [id number] Use daily Univers (EPIPEN 6-12 as needed ity of 2-JUAN) 0.3 00:00: for [place] mg/0.3 mL 00 allergic Medica l injection reactions [facility] EPINEPHrine Yes [id number] Use daily Univers (EPIPEN 6-12 as needed ity of 2-JUAN) 0.3 00:00: for [place] mg/0.3 mL 00 allergic Medica l injection reactions [facility] EPINEPHrine Yes [id number] Use daily Univers (EPIPEN 6-12 as needed ity of 2-JUAN) 0.3 00:00: for [place] mg/0.3 mL 00 allergic Medica l injection reactions [facility] EPINEPHrine Yes [id number] Use daily Univers (EPIPEN 6-12 as needed ity of 2-JUAN) 0.3 00:00: for [place] mg/0.3 mL 00 allergic Medica [facility] EPINEPHrine Yes [id number] Use daily Univers (EPIPEN 6-12 as needed ity of 2-JUAN) 0.3 00:00: for [place] mg/0.3 mL 00 allergic Medica l injection reactions [facility] h EPINEPHrine Yes [id number] Use daily Univers (EPIPEN 6-12 as needed ity of 2-JUAN) 0.3 00:00: for [place] mg/0.3 mL 00 allergic Medica l injection reactions [facility] EPINEPHrine Yes [id number] Use daily Univers (EPIPEN 6-12 as needed ity of 2-JUAN) 0.3 00:00: for [place] mg/0.3 mL 00 allergic Medica l injection reactions [facility] EPINEPHrine Yes [id number] Use daily Univers (EPIPEN 6-12 as needed ity of 2-JUAN) 0.3 00:00: for [place] mg/0.3 mL 00 allergic Medica l injection reactions [facility] EPINEPHrine 2019- Yes [id number] Use daily Univers (EPIPEN 6-12 as needed ity of 2-JUAN) 0.3 00:00: for [place] mg/0.3 mL 00 allergic Medica l injection reactions Branc h EPINEPHrine 2019 Yes [id number] Use daily Univers (EPIPEN 6-12 as needed ity of 2-JUAN) 0.3 00:00: for [place] mg/0.3 mL 00 allergic Medica l injection reactions [facility] EPINEPHrine Yes [id number] Use daily Univers (EPIPEN 6-12 as needed ity of 2-JUAN) 0.3 00:00: for [place] mg/0.3 mL 00 allergic Medica l injection reactions [facility] EPINEPHrine Yes [id number] Use daily Univers (EPIPEN 6-12 as needed ity of 2-JUAN) 0.3 00:00: for [place] mg/0.3 mL 00 allergic Medica l injection reactions [facility] EPINEPHrine Yes [id number] Use daily Univers (EPIPEN 6-12 as needed ity of 2-JUAN) 0.3 00:00: for [place] mg/0.3 mL 00 allergic Medica l injection reactions [facility] EPINEPHrine Yes [id number] Use daily Univers (EPIPEN 6-12 as needed ity of 2-JUAN) 0.3 00:00: for [place] mg/0.3 mL 00 allergic Medica l injection reactions [facility] EPINEPHrine 2019 Yes [id number] Use daily Univers (EPIPEN 6-12 as needed ity of 2-JUAN) 0.3 00:00: for [place] mg/0.3 mL 00 allergic Medica l injection reactions [facility] EPINEPHrine 2019- Yes [id number] Use daily Univers (EPIPEN 6-12 as needed ity of 2-JUAN) 0.3 00:00: for [place] mg/0.3 mL 00 allergic Medica l injection reactions [facility] EPINEPHrine 2019- Yes [id number] Use daily Univers (EPIPEN 6-12 as needed ity of 2-JUAN) 0.3 00:00: for [place] mg/0.3 mL 00 allergic Medica l injection reactions [facility] EPINEPHrine 2018- Yes [id number] Use daily Univers (EPIPEN 6-12 as needed ity of 2-JUAN) 0.3 00:00: for [place] mg/0.3 mL 00 allergic Medica l injection reactions [facility] EPINEPHrine Yes [id number] Use daily Univers (EPIPEN 6-12 as needed ity of 2-JUAN) 0.3 00:00: for [place] mg/0.3 mL 00 allergic Medica l injection reactions [facility] EPINEPHrine Yes [id number] Use daily Univers (EPIPEN 6-12 as needed ity of 2-JUAN) 0.3 00:00: for [place] mg/0.3 mL 00 allergic Medica l injection reactions [facility] EPINEPHrine Yes [id number] Use daily Univers (EPIPEN 6-12 as needed ity of 2-JUAN) 0.3 00:00: for [place] mg/0.3 mL 00 allergic Medica l injection reactions [facility] EPINEPHrine Yes [id number] Use daily Univers (EPIPEN 6-12 as needed ity of 2-JUAN) 0.3 00:00: for [place] mg/0.3 mL 00 allergic Medica l injection reactions [facility] EPINEPHrine Yes [id number] Use daily Univers (EPIPEN 6-12 as needed ity of 2-JUAN) 0.3 00:00: for [place] mg/0.3 mL 00 allergic Medica l injection reactions [facility] EPINEPHrine Yes [id number] Use daily Univers (EPIPEN 6-12 as needed ity of 2-JUAN) 0.3 00:00: for [place] mg/0.3 mL 00 allergic Medica l injection reactions [facility] divalproex Yes 500mg QD Take [address] (DEPAKOTE) 4-05 mg by [facility] MG EC 17:49: mouth Medical tablet 39 daily. [place] aspirin 325 2018- Yes 325mg QD Take [address] MG EC 4-05 mg by [facility] tablet 17:49: mouth Medical 39 daily. [place] divalproex 2019- Yes 500mg QD Take [address] (DEPAKOTE) 4-05 mg by [facility] MG EC 17:49: mouth Medical tablet 39 daily. [place] aspirin 325 2018- Yes 325mg QD Take [address] MG EC 4-05 mg by [facility] tablet 17:49: mouth Medical 39 daily. [place] divalproex Yes 500mg QD Take [address] (DEPAKOTE) 4-05 mg by [facility] MG EC 17:49: mouth Medical tablet 39 daily. [place] aspirin 325 Yes 325mg QD Take [address] MG EC 4-05 mg by [facility] tablet 17:49: mouth Medical 39 daily. [place] divalproex Yes 500mg QD Take [address] (DEPAKOTE) 4-05 mg by [facility] 500 MG EC 17:49: mouth Medical tablet 39 daily. [place] aspirin 325 Yes 325mg QD Take [address] MG EC 4-05 mg by [facility] tablet 17:49: mouth Medical 39 daily. [place] divalproex Yes 500mg QD Take [address] (DEPAKOTE) 4-05 mg by [facility] 500 MG EC 17:49: mouth Medical tablet 39 daily. [place] aspirin 325 Yes 325mg QD Take [address] MG EC 4-05 mg by [facility] tablet 17:49: mouth Medical 39 daily. [place] mupirocin 2018- No Apply [facility] (BACTROBAN) 11-16 topically. C [facility] 2 % 00:00: 00:00 of ointment 00 :00 Medicin e predniSONE 2017-10- No [facility] (DELTASONE) 2-08-15 College 50 MG 00:00: 00:00 of tablet 00 :00 Medicin e meloxicam 2019- No 7.5mg Take 7.5 [facility] (MOBIC) 7.5 07-11 mg by Colleg e MG tablet 00:00: 00:00 mouth. of 00 :00 Medicin e metoclopram 2019- No 1 tab [place] or dianna 3- every 4hr College (REGLAN) 10 00:00: 00:00 as needed of MG tablet 00 :00 for nausea Medi dennis e hydrOXYzine 2019- No 1-2 tabs [facility] (ATARAX) 25 3-08 02- Every Colleg e MG tablet 00:00: 00:00 3-6hr as of 00 :00 needed for Medicin itch or e rash, at least 3 times a day. divalproex 2018-0 Yes 500mg Take 1 Tab [facility] (DEPAKOTE) 1-17 by mouth Colle ge 500 MG EC 00:00: daily. of tablet 00 Medicin e divalproex 2018-0 Yes 500mg Take 1 Tab [facility] (DEPAKOTE) 1-17 by mouth Colle ge 500 MG EC 00:00: daily. of tablet 00 Medicin e divalproex 2018-0 Yes 500mg Take 1 Tab [facility] (DEPAKOTE) 1-17 by mouth Colle ge 500 MG EC 00:00: daily. of tablet 00 Medicin e divalproex 2018-0 Yes 500mg Take 1 Tab [facility] (DEPAKOTE) 1-17 by mouth Colle ge 500 MG EC 00:00: daily. of tablet 00 Medicin e divalproex 2018-0 Yes 500mg Take 1 Tab [facility] (DEPAKOTE) 1-17 by mouth Colle ge 500 MG EC 00:00: daily. of tablet 00 Medicin e divalproex 2018-0 Yes 500mg Take 1 Tab [facility] (DEPAKOTE) 1-17 by mouth Colle ge 500 MG EC 00:00: daily. of tablet 00 Medicin e divalproex 2018-0 Yes 500mg Take 1 Tab [facility] (DEPAKOTE) 1-17 by mouth Colle ge 500 MG EC 00:00: daily. of tablet 00 Medicin e Naftifine 2019- No [id number] Apply [place] jonnie HCl 11-24 2x/day 1 [place] ([place]) 2 00:00: 00:00 month of % CREA 00 :00 right Medicin sole/foot e Urea 40 % 2019- No [id number] Apply [facility] CREA 05-26 1x/day to [place] 00:00: 00:00 soles as of 00 :00 tolerated Medicin e levalbutero 2019- No 2{puff} Inhale 2 [facility] l tartrate 03-03 Puffs by [place] (XOPENEX 00:00: 00:00 mouth of HFA) 45 00 :00 every 4 Medicin MCG/ACT hours as e AERO needed for inhaler Other (cough, SOB, wheeze). EPINEPHrine 2014-10 Yes [facility] (EPIPEN 2- [place] 2-JUAN) 0.3 00:00: of MG/0.3ML 00 Medicin injection e EPINEPHrine 2014-10 Yes [facility] (EPIPEN 2-04 [place] 2-JUAN) 0.3 00:00: of MG/0.3ML 00 Medicin injection e EPINEPHrine 2014-10 Yes as needed. [facility] 0.3 2-04 College MG/0.3ML 00:00: of injection 00 Medicin e EPINEPHrine 2014-10 Yes as needed. [facility] 0.3 2-04 College MG/0.3ML 00:00: of injection Medicin e EPINEPHrine 2014-10 Yes as needed. [facility] 0.3 2-04 College MG/0.3ML 00:00: of injection 00 Medicin e EPINEPHrine 2014-10 Yes [facility] (EPIPEN 2-04 [place] 2-JUAN) 0.3 00:00: of MG/0.3ML 00 Medicin injection e EPINEPHrine 2014-10 Yes [facility] (EPIPEN 2-04 [place] 2-JUAN) 0.3 00:00: of MG/0.3ML 00 Medicin injection e loratadine 2019- No [id number] 10mg Take 1 Tab [facility] (CLARITIN) 4 10-23 by mouth [place] 10 MG 00:00: 00:00 daily. of tablet 00 :00 Medicin e Budesonide- 2019- No [id number] 2{puff} Inhale 2 [facility] Formoterol 24 10-23 Puffs by [facility] Fumarate 00:00: 00:00 mouth two of (SYMBICORT) 00 :00 times Medicin 160-4.5 daily. e MCG/ACT AERO citalopram 2010-10 2019- No 5mg Take 5 mg [facility] (CELEXA) 10 0-27 10-23 by mouth Col lege MG tablet 00:00: 00:00 daily. of 00 :00 Medicin e Immunizations Ordered Filled Immunization Date Status Comments [facility] e Immunization Name Name Pneumococcal 2022-07-30 Completed Universit y of Conjugate, PCV20 00:00:00 [facility] dical (Prevnar 20) Branch Pneumococcal 20 2022-07-30 Completed Universit y of Conjugate, PCV20 00:00:00 [facility] dical (Prevnar 20) Branch Pneumococcal 20 2022-07-30 Completed Universit y of Conjugate, PCV20 00:00:00 [place] [facility] dical (Prevnar 20) Branch Pneumococcal 20 2022-07-30 Completed Universit y of Conjugate, PCV20 00:00:00 [place] Me dical (Prevnar 20) Branch Pneumococcal 20 2022-07-30 Completed Universit y of Conjugate, PCV20 00:00:00 [place] Me dical (Prevnar 20) Branch Pneumococcal 20 2022-07-30 Completed Universit y of Conjugate, PCV20 00:00:00 [place] Me dical (Prevnar 20) Branch Pneumococcal 20 2022-07-30 Completed Universit y of Conjugate, PCV20 00:00:00 [place] Me dical (Prevnar 20) Branch Pneumococcal 20 2022-07-30 Completed Universit y of Conjugate, PCV20 00:00:00 [place] Me dical (Prevnar 20) Branch Pneumococcal 20 2022-07-30 Completed Universit y of Conjugate, PCV20 00:00:00 [place] Me dical (Prevnar 20) Branch Pneumococcal 20 2022-07-30 Completed Universit y of Conjugate, PCV20 00:00:00 [place] Me dical (Prevnar 20) Branch Pneumococcal 20 2022-07-30 Completed Universit y of Conjugate, PCV20 00:00:00 [place] Me dical (Prevnar 20) Branch Pneumococcal 20 2022-07-30 Completed Universit y of Conjugate, PCV20 00:00:00 [place] Me dical (Prevnar 20) Branch Pneumococcal 20 2022-07-30 Completed Universit y of Conjugate, PCV20 00:00:00 [place] Me dical (Prevnar 20) Branch Pneumococcal 20 2022-07-30 Completed Universit y of Conjugate, PCV20 00:00:00 [place] Me dical (Prevnar 20) Branch Pneumococcal 20 2022-07-30 Completed Universit y of Conjugate, PCV20 00:00:00 [place] Me dical (Prevnar 20) Branch Pneumococcal 20 2022-07-30 Completed Universit y of Conjugate, PCV20 00:00:00 [place] Me dical (Prevnar 20) Branch Pneumococcal 20 2022-07-30 Completed Universit y of Conjugate, PCV20 00:00:00 [place] Me dical (Prevnar 20) Branch Pneumococcal 20 2022-07-30 Completed Universit y of Conjugate, PCV20 00:00:00 [place] dical (Prevnar 20) Branch Pneumococcal 20 2022-07-30 Completed Universit y of Conjugate, PCV20 00:00:00 [place] Me dical (Prevnar 20) Branch Pneumococcal 20 2022-07-30 Completed Universit y of Conjugate, PCV20 00:00:00 [place] Me dical (Prevnar 20) Branch Pneumococcal 20 2022-07-30 Completed Universit y of Conjugate, PCV20 00:00:00 [place] Me dical (Prevnar 20) Branch Pneumococcal 20 2022-07-30 Completed [facility] Conjugate, PCV20 00:00:00 [place] [facility] (Prevnar 20) Branch Pneumococcal 20 2022-07-30 Completed [facility] Conjugate, PCV20 00:00:00 [place] [facility] (Prevnar 20) Branch Pneumococcal 20 2022-07-30 Completed [facility] Conjugate, PCV20 00:00:00 [place] [facility] (Prevnar 20) Branch Pneumococcal 20 2022-07-30 Completed [facility] Conjugate, PCV20 00:00:00 [place] [facility] (Prevnar 20) Branch Pneumococcal 20 2022-07-30 Completed [facility] Conjugate, PCV20 00:00:00 [place] [facility] (Prevnar 20) Branch Pneumococcal 20 2022-07-30 Completed [facility] Conjugate, PCV20 00:00:00 [place] [facility] (Prevnar 20) Branch Pneumococcal 20 2022-07-30 Completed [facility] Conjugate, PCV20 00:00:00 [place] [facility] (Prevnar 20) Branch Pneumococcal 20 2022-07-30 Completed [facility] Conjugate, PCV20 00:00:00 [place] [facility] (Prevnar 20) Branch Pneumococcal 20 2022-07-30 Completed [facility] Conjugate, PCV20 00:00:00 [place] [facility] (Prevnar 20) Branch Pneumococcal 20 2022-07-30 Completed [facility] Conjugate, PCV20 00:00:00 [place] [facility] (Prevnar 20) Branch Pneumococcal 20 2022-07-30 Completed [facility] Conjugate, PCV20 00:00:00 [place] [facility] (Prevnar 20) Branch Pneumococcal 20 2022-07-30 Completed [facility] of Conjugate, PCV20 00:00:00 [place] [facility] (Prevnar 20) Branch Pneumococcal 20 2022-07-30 Completed [facility] Conjugate, PCV20 00:00:00 [place] [facility] (Pre[facility]ar 20) [facility] Pneumococcal 20 2022-07-30 Completed [facility] of Conjugate, PCV20 00:00:00 [facility] dical (Prevnar 20) Branch Pneumococcal 20 2022-07-30 Completed [facility] of Conjugate, PCV20 00:00:00 [place] [facility] (Prevnar 20) Branch Pneumococcal 20 2022-07-30 Completed [facility] of Conjugate, PCV20 00:00:00 [facility] dical (Prevnar 20) Branch Pneumococcal 20 2022-07-30 Completed [facility] y of Conjugate, PCV20 00:00:00 [facility] dical (Prevnar 20) Branch Pneumococcal 20 2022-07-30 Completed [facility] y of Conjugate, PCV20 00:00:00 [facility] dical (Prevnar 20) Branch Pneumococcal 20 2022-07-30 Completed [facility] y of Conjugate, PCV20 00:00:00 [facility] dical (Prevnar 20) Branch Influenza Virus 2022-07-07 Completed [facility] y of Vaccine 00:00:00 [facility] Influenza Virus 2022-07-07 Completed [facility] y of Vaccine 00:00:00 [facility] Influenza Virus 2022-07-07 Completed [facility] y of Vaccine 00:00:00 [facility] Influenza Virus 2022-07-07 Completed [facility] y of Vaccine 00:00:00 [facility] Influenza Virus 2022-07-07 Completed [facility] y of Vaccine 00:00:00 [facility] Influenza Virus 2022-07-07 Completed [facility] y of Vaccine 00:00:00 [facility] Influenza Virus 2022-07-07 Completed [facility] y of Vaccine 00:00:00 [facility] Influenza Virus 2022-07-07 Completed [facility] y of Vaccine 00:00:00 [facility] Influenza Virus 2022-07-07 Completed [facility] y of Vaccine 00:00:00 [facility] Influenza Virus 2022-07-07 Completed [facility] y of Vaccine 00:00:00 [facility] Influenza Virus 2022-07-07 Completed [facility] y of Vaccine 00:00:00 [facility] Influenza Virus 2022-07-07 Completed [facility] y of Vaccine 00:00:00 [facility] Influenza Virus 2022-07-07 Completed [facility] y of Vaccine 00:00:00 [facility] Influenza Virus 2022-07-07 Completed [facility] of Vaccine 00:00:00 [facility] Influenza Virus 2022-07-07 Completed [facility] y of Vaccine 00:00:00 [facility] Influenza Virus 2022-07-07 Completed [facility] y of Vaccine 00:00:00 [facility] Influenza Virus 2022-07-07 Completed [facility] y of Vaccine 00:00:00 [facility] Branch Influenza Virus 2022-07-07 Completed [facility] y of Vaccine 00:00:00 [facility] Branch Influenza Virus 2022-07-07 Completed [facility] y of Vaccine 00:00:00 [facility] Branch Influenza Virus 2022-07-07 Completed [facility] y of Vaccine 00:00:00 [facility] Influenza Virus 2022-07-07 Completed [facility] y of Vaccine 00:00:00 [facility] Influenza Virus 2022-07-07 Completed [facility] y of Vaccine 00:00:00 [facility] Branch Influenza Virus 2022-07-07 Completed [facility] y of Vaccine 00:00:00 [facility] Branch Influenza Virus 2022-07-07 Completed [facility] y of Vaccine 00:00:00 [facility] Branch Influenza Virus 2022-07-07 Completed [facility] y of Vaccine 00:00:00 [facility] Branch Influenza Virus 2022-07-07 Completed [facility] y of Vaccine 00:00:00 [facility] Influenza Virus 2022-07-07 Completed [facility] y of Vaccine 00:00:00 [facility] Branch Influenza Virus 2022-07-07 Completed [facility] y of Vaccine 00:00:00 [facility] Influenza Virus 2022-07-07 Completed [facility] y of Vaccine 00:00:00 [facility] Influenza Virus 2022-07-07 Completed [facility] y of Vaccine 00:00:00 [facility] Branch Influenza Virus 2022-07-07 Completed [facility] y of Vaccine 00:00:00 [facility] Influenza Virus 2022-07-07 Completed [facility] y of Vaccine 00:00:00 [facility] Influenza Virus 2022-07-07 Completed [facility] y of Vaccine 00:00:00 [facility] Branch Influenza Virus 2022-07-07 Completed [facility] of Vaccine 00:00:00 [facility] Influenza Virus 2022-07-07 Completed [facility] y of Vaccine 00:00:00 [facility] Branch Influenza Virus 2022-07-07 Completed [facility] y of Vaccine 00:00:00 [facility] Branch Influenza Virus 2022-07-07 Completed [facility] y of Vaccine 00:00:00 [facility] Influenza Virus 2022-07-07 Completed [facility] y of Vaccine 00:00:00 [facility] Influenza Virus 2022-07-07 Completed [facility] y of Vaccine 00:00:00 [facility] TDAP 2022-01-04 Completed University of 00:00:00 [facility] TDAP 2022-01-04 Completed University of 00:00:00 [facility] TDAP 2022-01-04 Completed [facility] of 00:00:00 [facility] TDAP 2022-01-04 Completed University of 00:00:00 [facility] TDAP 2022-01-04 Completed University of 00:00:00 [facility] Branch TDAP 2022-01-04 Completed University of 00:00:00 [facility] Branch TDAP 2022-01-04 Completed University of 00:00:00 [facility] TDAP 2022-01-04 Completed University of 00:00:00 [facility] TDAP 2022-01-04 Completed University of 00:00:00 [facility] TDAP 2022-01-04 Completed University of 00:00:00 [facility] TDAP 2022-01-04 Completed University of 00:00:00 [facility] TDAP 2022-01-04 Completed University of 00:00:00 [facility] TDAP 2022-01-04 Completed University of 00:00:00 [facility] TDAP 2022-01-04 Completed University of 00:00:00 [facility] TDAP 2022-01-04 Completed University of 00:00:00 [facility] TDAP 2022-01-04 Completed University of 00:00:00 [facility] Branch TDAP 2022-01-04 Completed University of 00:00:00 [facility] TDAP 2022-01-04 Completed University of 00:00:00 [facility] TDAP 2022-01-04 Completed University of 00:00:00 [facility] TDAP 2022-01-04 Completed University of 00:00:00 [facility] TDAP 2022-01-04 Completed [facility] of 00:00:00 [facility] TDAP 2022-01-04 Completed University of 00:00:00 [facility] TDAP 2022-01-04 Completed University of 00:00:00 [facility] Branch TDAP 2022-01-04 Completed University of 00:00:00 [facility] TDAP 2022-01-04 Completed [facility] of 00:00:00 [facility] TDAP 2022-01-04 Completed [facility] of 00:00:00 [facility] TDAP 2022-01-04 Completed [facility] 00:00:00 [facility] TDAP 2022-01-04 Completed [facility] of 00:00:00 [facility] TDAP 2022-01-04 Completed University of 00:00:00 [facility] TDAP 2022-01-04 Completed [facility] 00:00:00 [facility] TDAP 2022-01-04 Completed [facility] of 00:00:00 [facility] Branch TDAP 2022-01-04 Completed University of 00:00:00 [facility] TDAP 2022-01-04 Completed University of 00:00:00 [facility] Branch TDAP 2022-01-04 Completed University of 00:00:00 [facility] TDAP 2022-01-04 Completed University of 00:00:00 [facility] TDAP 2022-01-04 Completed [facility] of 00:00:00 [facility] TDAP 2022-01-04 Completed [facility] of 00:00:00 [facility] TDAP 2022-01-04 Completed University of 00:00:00 [facility] Branch TDAP 2022-01-04 Completed [facility] of 00:00:00 [facility] Branch TDAP 2022-01-04 Completed [facility] of 00:00:00 [facility] TDAP 2022-01-04 Completed University of 00:00:00 [facility] TDAP 2022-01-04 Completed [facility] of 00:00:00 [facility] TDAP 2022-01-04 Completed University of 00:00:00 [facility] TDAP 2022-01-04 Completed University of 00:00:00 [facility] TDAP 2022-01-04 Completed University of 00:00:00 [facility] TDAP 2022-01-04 Completed [facility] of 00:00:00 [facility] TDAP 2022-01-04 Completed University of 00:00:00 [facility] TDAP 2022-01-04 Completed University of 00:00:00 [facility] TDAP 2022-01-04 Completed University of 00:00:00 [facility] TDAP 2022-01-04 Completed [facility] of 00:00:00 [facility] Influenza Virus 2020-06-26 Completed [facility]it y of Vaccine 00:00:00 [facility] Influenza Virus 2020-06-26 Completed [facility] y of Vaccine 00:00:00 [facility] Influenza Virus 2020-06-26 Completed [facility] y of Vaccine 00:00:00 [facility] Influenza Virus 2020-06-26 Completed [facility] y of Vaccine 00:00:00 [facility] Influenza Virus 2020-06-26 Completed [facility] y of Vaccine 00:00:00 [facility] Influenza Virus 2020-06-26 Completed [facility] y of Vaccine 00:00:00 [facility] Influenza Virus 2020-06-26 Completed [facility] y of Vaccine 00:00:00 [facility] Influenza Virus 2020-06-26 Completed [facility] y of Vaccine 00:00:00 [facility] Influenza Virus 2020-06-26 Completed [facility] y of Vaccine 00:00:00 [facility] Influenza Virus 2020-06-26 Completed [facility] y of Vaccine 00:00:00 [facility] Influenza Virus 2020-06-26 Completed [facility] y of Vaccine 00:00:00 [facility] Influenza Virus 2020-06-26 Completed [facility] y of Vaccine 00:00:00 [facility] Influenza Virus 2020-06-26 Completed [facility] y of Vaccine 00:00:00 [facility] Influenza Virus 2020-06-26 Completed [facility] y of Vaccine 00:00:00 [facility] Influenza Virus 2020-06-26 Completed [facility] y of Vaccine 00:00:00 [facility] Influenza Virus 2020-06-26 Completed [facility] y of Vaccine 00:00:00 [facility] Influenza Virus 2020-06-26 Completed [facility] y of Vaccine 00:00:00 [facility] Influenza Virus 2020-06-26 Completed [facility] y of Vaccine 00:00:00 [facility] Influenza Virus 2020-06-26 Completed [facility] y of Vaccine 00:00:00 [facility] Influenza Virus 2020-06-26 Completed [facility] y of Vaccine 00:00:00 [facility] Influenza Virus 2020-06-26 Completed [facility] y of Vaccine 00:00:00 [facility] Influenza Virus 2020-06-26 Completed [facility] y of Vaccine 00:00:00 [facility] Influenza Virus 2020-06-26 Completed [facility] y of Vaccine 00:00:00 [facility] Influenza Virus 2020-06-26 Completed [facility] y of Vaccine 00:00:00 [facility] Influenza Virus 2020-06-26 Completed [facility] y of Vaccine 00:00:00 [facility] Influenza Virus 2020-06-26 Completed [facility] y of Vaccine 00:00:00 [facility] Influenza Virus 2020-06-26 Completed [facility] y of Vaccine 00:00:00 [facility] Influenza Virus 2020-06-26 Completed [facility] y of Vaccine 00:00:00 [facility] Influenza Virus 2020-06-26 Completed [facility] y of Vaccine 00:00:00 [facility] Influenza Virus 2020-06-26 Completed [facility] y of Vaccine 00:00:00 [facility] Influenza Virus 2020-06-26 Completed [facility] y of Vaccine 00:00:00 [facility] Influenza Virus 2020-06-26 Completed [facility] y of Vaccine 00:00:00 [facility] Influenza Virus 2020-06-26 Completed [facility] y of Vaccine 00:00:00 [facility] Influenza Virus 2020-06-26 Completed [facility] y of Vaccine 00:00:00 [facility] Influenza Virus 2020-06-26 Completed [facility] y of Vaccine 00:00:00 [facility] Influenza Virus 2020-06-26 Completed [facility] y of Vaccine 00:00:00 [facility] Influenza Virus 2020-06-26 Completed [facility] y of Vaccine 00:00:00 [facility] Influenza Virus 2020-06-26 Completed [facility] y of Vaccine 00:00:00 [facility] Influenza Virus 2020-06-26 Completed [facility] y of Vaccine 00:00:00 [facility] Influenza Virus 2020-06-26 Completed [facility] y of Vaccine 00:00:00 [facility] Influenza Virus 2020-06-26 Completed [facility] y of Vaccine 00:00:00 [facility] Influenza Virus 2020-06-26 Completed [facility] y of Vaccine 00:00:00 [facility] Influenza Virus 2020-06-26 Completed [facility] y of Vaccine 00:00:00 [facility] Influenza Virus 2020-06-26 Completed [facility] y of Vaccine 00:00:00 [facility] Influenza Virus 2020-06-26 Completed [facility] y of Vaccine 00:00:00 [facility] Influenza Virus 2020-06-26 Completed [facility] y of Vaccine 00:00:00 [facility] Influenza Virus 2020-06-26 Completed [facility] y of Vaccine 00:00:00 [facility] Influenza Virus 2020-06-26 Completed [facility] y of Vaccine 00:00:00 [facility] Influenza Virus 2020-06-26 Completed [facility] y of Vaccine 00:00:00 [facility] Influenza Virus 2020-06-26 Completed [facility] y of Vaccine 00:00:00 [facility] Influenza Virus 2020-06-26 Completed [facility] y of Vaccine 00:00:00 [facility] Influenza Virus 2020-06-26 Completed [facility]it y of Vaccine 00:00:00 [facility] Influenza Virus 2020-06-26 Completed [facility] y of Vaccine 00:00:00 [facility] Influenza Virus 2020-06-26 Completed [facility] y of Vaccine 00:00:00 [facility] Influenza Virus 2020-06-26 Completed [facility] y of Vaccine 00:00:00 [facility] Influenza Virus 2019-09-02 Completed [facility]it y of Vaccine Quad .5 mL 00:00:00 [facility] IM 6+ [place] Influenza Virus 2019-09-02 Completed [facility]it y of Vaccine Quad IM 3+ 00:00:00 [facility] Influenza Virus 2019-09-02 Completed [facility]it y of Vaccine Quad .5 mL 00:00:00 [facility] 6+ [place] Influenza Virus 2019-09-02 Completed [facility] y of Vaccine Quad IM 3+ 00:00:00 [facility] Influenza Virus 2019-09-02 Completed [facility] y of Vaccine Quad .5 mL 00:00:00 [facility] 6+ [place] Influenza Virus 2019-09-02 Completed [facility]it y of Vaccine Quad IM 3+ 00:00:00 [facility] Influenza Virus 2019-09-02 Completed [facility] y of Vaccine Quad .5 mL 00:00:00 [facility] IM 6+ [place] Influenza Virus 2019-09-02 Completed [facility] y of Vaccine Quad IM 3+ 00:00:00 [facility] Influenza Virus 2019-09-02 Completed [facility] y of Vaccine Quad .5 mL 00:00:00 [facility] 6+ [place] Influenza Virus 2019-09-02 Completed [facility] y of Vaccine Quad IM 3+ 00:00:00 [facility] Influenza Virus 2019-09-02 Completed [facility] y of Vaccine Quad .5 mL 00:00:00 [facility] 6+ [place] Influenza Virus 2019-09-02 Completed [facility] y of Vaccine Quad IM 3+ 00:00:00 [facility] Influenza Virus 2019-09-02 Completed [facility] y of Vaccine Quad .5 mL 00:00:00 [facility] 6+ [facility] Influenza Virus 2019-09-02 Completed [facility] y of Vaccine Quad IM 3+ 00:00:00 [facility] Influenza Virus 2019-09-02 Completed [facility] y of Vaccine Quad .5 mL 00:00:00 [facility] 6+ [facility] Influenza Virus 2019-09-02 Completed [facility] y of Vaccine Quad IM 3+ 00:00:00 [facility] Influenza Virus 2019-09-02 Completed [facility] y of Vaccine Quad .5 mL 00:00:00 [facility] 6+ [facility] Influenza Virus 2019-09-02 Completed [facility] y of Vaccine Quad IM 3+ 00:00:00 [facility] Influenza Virus 2019-09-02 Completed [facility] y of Vaccine Quad .5 mL 00:00:00 [facility] 6+ [place] Influenza Virus 2019-09-02 Completed [facility] y of Vaccine Quad IM 3+ 00:00:00 [facility] Influenza Virus 2019-09-02 Completed [facility] y of Vaccine Quad .5 mL 00:00:00 [facility] 6+ [place] Influenza Virus 2019-09-02 Completed [facility] y of Vaccine Quad IM 3+ 00:00:00 [facility] Influenza Virus 2019-09-02 Completed [facility] y of Vaccine Quad .5 mL 00:00:00 [facility] 6+ [place] Influenza Virus 2019-09-02 Completed [facility] y of Vaccine Quad IM 3+ 00:00:00 [facility] Influenza Virus 2019-09-02 Completed [facility] y of Vaccine Quad .5 mL 00:00:00 [facility] 6+ [place] Influenza Virus 2019-09-02 Completed [facility] y of Vaccine Quad IM 3+ 00:00:00 [facility] Influenza Virus 2019-09-02 Completed [facility] y of Vaccine Quad .5 mL 00:00:00 [facility] 6+ [facility] Influenza Virus 2019-09-02 Completed [facility] y of Vaccine Quad IM 3+ 00:00:00 [facility] Influenza Virus 2019-09-02 Completed [facility] y of Vaccine Quad .5 mL 00:00:00 [facility] 6+ [place] Influenza Virus 2019-09-02 Completed [facility] y of Vaccine Quad IM 3+ 00:00:00 [facility] Influenza Virus 2019-09-02 Completed [facility] y of Vaccine Quad .5 mL 00:00:00 [facility] 6+ [facility] Influenza Virus 2019-09-02 Completed [facility] y of Vaccine Quad IM 3+ 00:00:00 [facility] Influenza Virus 2019-09-02 Completed [facility] y of Vaccine Quad .5 mL 00:00:00 [facility] 6+ [facility] Influenza Virus 2019-09-02 Completed [facility] y of Vaccine Quad IM 3+ 00:00:00 [facility] Influenza Virus 2019-09-02 Completed [facility] y of Vaccine Quad .5 mL 00:00:00 [facility] 6+ [facility] Influenza Virus 2019-09-02 Completed [facility] y of Vaccine Quad IM 3+ 00:00:00 [facility] Influenza Virus 2019-09-02 Completed [facility] y of Vaccine Quad .5 mL 00:00:00 [facility] 6+ [place] Influenza Virus 2019-09-02 Completed [facility] y of Vaccine Quad IM 3+ 00:00:00 [facility] Influenza Virus 2019-09-02 Completed [facility] y of Vaccine Quad .5 mL 00:00:00 [facility] 6+ [place] Influenza Virus 2019-09-02 Completed [facility] y of Vaccine Quad IM 3+ 00:00:00 [facility] Influenza Virus 2019-09-02 Completed [facility] y of Vaccine Quad .5 mL 00:00:00 [facility] 6+ [place] Influenza Virus 2019-09-02 Completed [facility] y of Vaccine Quad IM 3+ 00:00:00 [facility] Influenza Virus 2019-09-02 Completed [facility] y of Vaccine Quad .5 mL 00:00:00 [facility] 6+ [place] Influenza Virus 2019-09-02 Completed [facility] y of Vaccine Quad IM 3+ 00:00:00 [facility] Influenza Virus 2019-09-02 Completed [facility] y of Vaccine Quad .5 mL 00:00:00 [facility] 6+ [facility] Influenza Virus 2019-09-02 Completed [facility] y of Vaccine Quad IM 3+ 00:00:00 [facility] Influenza Virus 2019-09-02 Completed [facility] y of Vaccine Quad .5 mL 00:00:00 [facility] 6+ [place] Influenza Virus 2019-09-02 Completed [facility] y of Vaccine Quad IM 3+ 00:00:00 [facility] Influenza Virus 2019-09-02 Completed [facility] y of Vaccine Quad .5 mL 00:00:00 [facility] 6+ [facility] Influenza Virus 2019-09-02 Completed [facility] y of Vaccine Quad IM 3+ 00:00:00 [facility] Influenza Virus 2019-09-02 Completed [facility] .5 mL 00:00:00 [facility] 6[facility] MO [facility] Influenza Virus 2019-09-02 Completed [facility] IM 3+ 00:00:00 [facility] Influenza Virus 2019-09-02 Completed [facility] .5 mL 00:00:00 [facility] 6[facility] [place] Influenza Virus 2019-09-02 Completed [facility] IM 3+ 00:00:00 [facility] Influenza Virus 2019-09-02 Completed [facility] .5 mL 00:00:00 [facility] 6[facility] [place] Influenza Virus 2019-09-02 Completed [facility] IM 3+ 00:00:00 [facility] Influenza Virus 2019-09-02 Completed [facility] .5 mL 00:00:00 [facility] 6[facility] [place] Influenza Virus 2019-09-02 Completed [facility] IM 3+ 00:00:00 [facility] Influenza Virus 2019-09-02 Completed [facility] .5 mL 00:00:00 [facility] 6[facility] [place] Influenza Virus 2019-09-02 Completed [facility] IM 3+ 00:00:00 [facility] Influenza Virus 2019-09-02 Completed [facility] .5 mL 00:00:00 [facility] 6[facility] Influenza Virus 2019-09-02 Completed [facility] IM 3+ 00:00:00 [facility] Influenza Virus 2019-09-02 Completed [facility] .5 mL 00:00:00 [facility] 6[facility] MO [facility] Influenza Virus 2019-09-02 Completed [facility] IM 3+ 00:00:00 [facility] Influenza Virus 2019-09-02 Completed [facility] .5 mL 00:00:00 [facility] 6[facility] MO [facility] Influenza Virus 2019-09-02 Completed [facility] IM 3+ 00:00:00 [facility] Influenza Virus 2019-09-02 Completed [facility] .5 mL 00:00:00 [facility] 6[facility] MO [facility] Influenza Virus 2019-09-02 Completed [facility] IM 3+ 00:00:00 [facility] Influenza Virus 2019-09-02 Completed [facility] .5 mL 00:00:00 [facility] 6[facility] MO [facility] Influenza Virus 2019-09-02 Completed [facility] IM 3+ 00:00:00 [facility] Influenza Virus 2019-09-02 Completed [facility] .5 mL 00:00:00 [facility] 6[facility] MO [facility] Influenza Virus 2019-09-02 Completed [facility] IM 3+ 00:00:00 [facility] Influenza Virus 2019-09-02 Completed [facility] .5 mL 00:00:00 [facility] 6[facility] [place] Influenza Virus 2019-09-02 Completed [facility] IM 3+ 00:00:00 [facility] Influenza Virus 2019-09-02 Completed [facility] .5 mL 00:00:00 [facility] 6[facility] MO [facility] Influenza Virus 2019-09-02 Completed [facility] IM 3+ 00:00:00 [facility] Influenza Virus 2019-09-02 Completed [facility] .5 mL 00:00:00 [facility] 6+ [facility] [place] Influenza Virus 2019-09-02 Completed [facility] IM 3+ 00:00:00 [facility] Influenza Virus 2019-09-02 Completed [facility] .5 mL 00:00:00 [facility] 6[facility] [place] Influenza Virus 2019-09-02 Completed [facility] IM 3+ 00:00:00 [facility] Influenza Virus 2019-09-02 Completed [facility] .5 mL 00:00:00 [facility] 6[facility] Influenza Virus 2019-09-02 Completed [facility] IM 3+ 00:00:00 [facility] Influenza Virus 2019-09-02 Completed [facility] .5 mL 00:00:00 [facility] 6[facility] MO [facility] Influenza Virus 2019-09-02 Completed [facility] IM 3+ 00:00:00 [facility] Influenza Virus 2019-09-02 Completed [facility] .5 mL 00:00:00 [facility] 6[facility] MO [facility] Influenza Virus 2019-09-02 Completed [facility] IM 3+ 00:00:00 [facility] Influenza Virus 2019-09-02 Completed [facility] .5 mL 00:00:00 [facility] 6[facility] MO [facility] Influenza Virus 2019-09-02 Completed [facility] IM 3+ 00:00:00 [facility] Influenza Virus 2019-09-02 Completed [facility] .5 mL 00:00:00 [facility] 6[facility] MO [facility] Influenza Virus 2019-09-02 Completed [facility] IM 3+ 00:00:00 [facility] Influenza Virus 2019-09-02 Completed [facility] .5 mL 00:00:00 [facility] 6[facility] [place] Influenza Virus 2019-09-02 Completed [facility] IM 3+ 00:00:00 [facility] Influenza Virus 2019-09-02 Completed [facility] .5 mL 00:00:00 [facility] 6[facility] [place] Influenza Virus 2019-09-02 Completed [facility] IM 3+ 00:00:00 [facility] Influenza Virus 2019-09-02 Completed [facility] .5 mL 00:00:00 [facility] 6[facility] [place] Influenza Virus 2019-09-02 Completed [facility] IM 3+ 00:00:00 [facility] Influenza Virus 2019-09-02 Completed [facility] .5 mL 00:00:00 [facility] 6+ [facility] [place] Influenza Virus 2019-09-02 Completed [facility] IM 3+ 00:00:00 [facility] Influenza Virus 2019-09-02 Completed [facility] .5 mL 00:00:00 [facility] 6[facility] Influenza Virus 2019-09-02 Completed [facility] IM 3+ 00:00:00 [facility] Influenza Virus 2019-09-02 Completed [facility] .5 mL 00:00:00 [facility] 6[facility] [place] Influenza Virus 2019-09-02 Completed [facility] IM 3+ 00:00:00 [facility] Influenza Virus 2019-09-02 Completed [facility] .5 mL 00:00:00 [facility] 6[facility] [place] Influenza Virus 2019-09-02 Completed [facility] Vacc[facility] IM 3+ 00:00:00 [facility] YRS Branch Influenza Virus 2019-09-02 Completed [facility] Vaccine [facility] .5 mL 00:00:00 [facility] 6[facility] MO [facility] Influenza Virus 2019-09-02 Completed [facility] IM 3+ 00:00:00 [facility] YRS Branch Influenza Virus 2019-09-02 Completed [facility] .5 mL 00:00:00 [facility] 6[facility] MO [facility] Influenza Virus 2019-09-02 Completed [facility] IM 3+ 00:00:00 [facility] YRS Branch Influenza Virus 2019-09-02 Completed [facility] .5 mL 00:00:00 [facility] 6[facility] MO [facility] Influenza Virus 2019-09-02 Completed [facility] IM 3+ 00:00:00 [facility] Influenza Quad-PF 2019-09-02 Completed [facility] 00:00:00 Medicine Influenza Quad-PF 2019-09-02 Completed [facility] 00[facility]00:00 Medicine Influenza Quad-PF 2019-09-02 Completed [facility] 00:00:00 Medicine Influenza Quad-PF 2019-09-02 Completed [facility] 00:00:00 Medicine Influenza Quad-PF 2019-09-02 Completed [facility] 00:00:00 [facility] Influenza Quad-PF 2019-09-02 Completed [facility] 00:00:00 [facility] Influenza Virus 2016-07-26 Completed [facility] 00:00:00 [facility] Influenza Virus 2016-07-26 Completed [facility] IM 00:00:00 [facility] 6[facility] Influenza Virus 2016-07-26 Completed [facility] IM 00:00:00 [facility] 6[facility] MO [facility] Influenza Virus 2016-07-26 Completed [facility] IM 00:00:00 [facility] 6[facility] MO [facility] Influenza Virus 2016-07-26 Completed [facility] IM 00:00:00 [facility] 6+ MO [facility] Influenza Virus 2016-07-26 Completed [facility] IM 00:00:00 [facility] 6+ [facility] Influenza Virus 2016-07-26 Completed [facility] IM 00:00:00 [facility] 6[facility] Influenza Virus 2016-07-26 Completed [facility] IM 00:00:00 [facility] 6+ [facility] Influenza Virus 2016-07-26 Completed [facility] IM 00:00:00 [facility] 6+ MO [facility] Influenza Virus 2016-07-26 Completed [facility] IM 00:00:00 [facility] 6[facility] Influenza Virus 2016-07-26 Completed [facility] IM 00:00:00 [facility] 6+ [facility] Influenza Virus 2016-07-26 Completed [facility] IM 00:00:00 [facility] 6+ MO [facility] Influenza Virus 2016-07-26 Completed [facility] IM 00:00:00 [facility] 6+ [facility] Influenza Virus 2016-07-26 Completed [facility] IM 00:00:00 [facility] 6+ MO [facility] Influenza Virus 2016-07-26 Completed [facility] IM 00:00:00 [facility]dose 6+ [facility] Influenza Virus 2016-07-26 Completed [facility] IM 00:00:00 [facility] Multi[facility]dose 6+ [facility] Influenza Virus 2016-07-26 Completed [facility] IM 00:00:00 [facility] Multi[facility]dose 6+ MO [facility] Influenza Virus 2016-07-26 Completed [facility] IM 00:00:00 [facility] Multi[facility]dose 6+ MO [facility] Influenza Virus 2016-07-26 Completed [facility] IM 00:00:00 [facility] Multi[facility]dose 6+ MO [facility] Influenza Virus 2016-07-26 Completed [facility] IM 00:00:00 [facility] Multi[facility]dose 6+ MO [facility] Influenza Virus 2016-07-26 Completed [facility] IM 00:00:00 [facility] Multi[facility] 6+ [facility] Influenza Virus 2016-07-26 Completed [facility] IM 00:00:00 [facility] Multi[facility]dose 6+ [facility] Influenza Virus 2016-07-26 Completed [facility] IM 00:00:00 [place] [facility] Multi[facility]dose 6+ MO [facility] Influenza Virus 2016-07-26 Completed [facility] IM 00:00:00 [facility]dose 6+ MO [facility] Influenza Virus 2016-07-26 Completed [facility] IM 00:00:00 [place] [facility] Multi[facility]dose 6+ [facility] Influenza Virus 2016-07-26 Completed [facility] IM 00:00:00 [place] [facility] Multi[facility]dose 6+ [facility] Influenza Virus 2016-07-26 Completed [facility] IM 00:00:00 [place] [facility] Multi[facility]dose 6+ MO [facility] Influenza Virus 2016-07-26 Completed [facility] IM 00:00:00 [place] [facility] Multi[facility]dose 6+ MO [facility] Influenza Virus 2016-07-26 Completed [facility] IM 00:00:00 [place] [facility] Multi[facility]dose 6+ MO [facility] Influenza Virus 2016-07-26 Completed [facility] IM 00:00:00 [place] [facility] Multi[facility]dose 6+ MO [facility] Influenza Virus 2016-07-26 Completed [facility] IM 00:00:00 [place] [facility] Multi[facility]dose 6+ MO [facility] Influenza Virus 2016-07-26 Completed [facility] IM 00:00:00 [place] [facility] Multi[facility]dose 6+ MO [facility] Influenza Virus 2016-07-26 Completed [facility] IM 00:00:00 [place] [facility] Multi[facility]dose 6+ MO [facility] Influenza Virus 2016-07-26 Completed [facility] IM 00:00:00 [place] [facility] Multi-dose 6+ MO [facility] Influenza Virus 2016-07-26 Completed [facility] IM 00:00:00 [place] [facility] Multi-dose 6+ MO [facility] Influenza Virus 2016-07-26 Completed [facility] IM 00:00:00 [place] [facility] Multi[facility]dose 6+ MO [facility] Influenza Virus 2016-07-26 Completed [facility] IM 00:00:00 [place] [facility] Multi-dose 6+ MO [facility] Influenza Virus 2016-07-26 Completed [facility] IM 00:00:00 [place] [facility] Multi-dose 6+ MO [facility] Influenza Virus 2016-07-26 Completed [facility] IM 00:00:00 [place] [facility] Multi[facility]dose 6+ MO [facility] Influenza Virus 2016-07-26 Completed [facility] IM 00:00:00 [place] [facility] Multi[facility]dose 6+ MO [facility] Influenza Virus 2016-07-26 Completed [facility] IM 00:00:00 [place] [facility] Multi-dose 6+ MO [facility] Influenza Virus 2016-07-26 Completed [facility] IM 00:00:00 [place] [facility] Multi[facility]dose 6+ MO [facility] Influenza Virus 2016-07-26 Completed [facility] IM 00:00:00 [facility] Multi[facility]dose 6+ MO [facility] Influenza Virus 2016-07-26 Completed [facility] IM 00:00:00 [place] [facility] Multi[facility]dose 6+ MO [facility] Influenza Virus 2016-07-26 Completed [facility] IM 00:00:00 [place] [facility] Multi[facility]dose 6+ MO [facility] Influenza Virus 2016-07-26 Completed [facility] IM 00:00:00 [place] [facility] Multi[facility]dose 6+ [facility] Influenza Virus 2016-07-26 Completed [facility] IM 00:00:00 [place] [facility] Multi[facility]dose 6+ MO [facility] Influenza Virus 2016-07-26 Completed [facility] IM 00:00:00 [place] [facility] Multi[facility]dose 6+ [facility] Influenza Virus 2016-07-26 Completed [facility] IM 00:00:00 [place] [facility] Multi[facility]dose 6+ MO [facility] Influenza Virus 2016-07-26 Completed [facility] IM 00:00:00 [place] [facility] Multi[facility]dose 6+ [facility] Influenza Virus 2016-07-26 Completed [facility] IM 00:00:00 [place] [facility] Multi[facility]dose 6+ [facility] Influenza Virus 2016-07-26 Completed [facility] IM 00:00:00 [place] [facility] Multi-dose 6+ MO [facility] Influenza Virus 2016-07-26 Completed [facility] IM 00:00:00 [place] [facility] Multi[facility]dose 6+ [facility] Influenza Virus 2016-07-26 Completed [facility] IM 00:00:00 [facility] Multi[facility] 6+ [facility] Influenza Virus 2016-07-26 Completed [facility] IM 00:00:00 [facility] TDAP (ADACEL) 2015-09-19 Completed [facility] VACCINE 00:00:00 [facility] TDAP 2015-09-19 Completed [facility] 00:00:00 [facility] Branch TDAP (ADACEL) 2015-09-19 Completed [facility] VACCINE 00:00:00 [facility] TDAP 2015-09-19 Completed [facility] 00:00:00 [facility] TDAP (ADACEL) 2015-09-19 Completed [facility] VACCINE 00:00:00 [facility] TDAP 2015-09-19 Completed [facility] 00:00:00 [facility] TDAP (ADACEL) 2015-09-19 Completed [facility] VACCINE 00:00:00 [facility] TDAP 2015-09-19 Completed [facility] 00:00:00 [facility] TDAP (ADACEL) 2015-09-19 Completed [facility] VACCINE 00:00:00 [facility] TDAP 2015-09-19 Completed [facility] 00:00:00 [facility] TDAP (ADACEL) 2015-09-19 Completed [facility] VACCINE 00:00:00 [facility] TDAP 2015-09-19 Completed [facility] 00:00:00 [facility] TDAP (ADACEL) 2015-09-19 Completed [facility] VACCINE 00:00:00 [facility] TDAP 2015-09-19 Completed [facility] 00:00:00 [facility] TDAP (ADACEL) 2015-09-19 Completed [facility] VACCINE 00:00:00 [facility] TDAP 2015-09-19 Completed [facility] 00:00:00 [facility] TDAP (ADACEL) 2015-09-19 Completed [facility] VACCINE 00:00:00 [facility] TDAP 2015-09-19 Completed [facility] 00:00:00 [facility] TDAP (ADACEL) 2015-09-19 Completed [facility] VACCINE 00:00:00 [facility] TDAP 2015-09-19 Completed [facility] 00:00:00 [facility] TDAP (ADACEL) 2015-09-19 Completed [facility] VACCINE 00:00:00 [facility] TDAP 2015-09-19 Completed [facility] 00:00:00 [facility] TDAP (ADACEL) 2015-09-19 Completed [facility] VACCINE 00:00:00 [facility] TDAP 2015-09-19 Completed [facility] 00:00:00 [facility] TDAP (ADACEL) 2015-09-19 Completed [facility] VACCINE 00:00:00 [facility] TDAP 2015-09-19 Completed [facility] 00:00:00 [facility] TDAP (ADACEL) 2015-09-19 Completed [facility] VACCINE 00:00:00 [facility] TDAP 2015-09-19 Completed [facility] 00:00:00 [facility] TDAP (ADACEL) 2015-09-19 Completed [facility] VACCINE 00:00:00 [facility] TDAP 2015-09-19 Completed [facility] 00:00:00 [facility] TDAP (ADACEL) 2015-09-19 Completed [facility] VACCINE 00:00:00 [facility] TDAP 2015-09-19 Completed [facility] 00:00:00 [facility] TDAP (ADACEL) 2015-09-19 Completed [facility] VACCINE 00:00:00 [facility] TDAP 2015-09-19 Completed [facility] 00:00:00 [facility] TDAP (ADACEL) 2015-09-19 Completed [facility] VACCINE 00:00:00 [facility] TDAP 2015-09-19 Completed [facility] 00:00:00 [facility] Branch TDAP (ADACEL) 2015-09-19 Completed [facility] VACCINE 00:00:00 [facility] TDAP 2015-09-19 Completed [facility] 00:00:00 [facility] TDAP (ADACEL) 2015-09-19 Completed [facility] VACCINE 00:00:00 [facility] TDAP 2015-09-19 Completed [facility] 00:00:00 [facility] TDAP (ADACEL) 2015-09-19 Completed [facility] of VACCINE 00:00:00 [facility] TDAP 2015-09-19 Completed [facility] 00:00:00 [facility] TDAP (ADACEL) 2015-09-19 Completed [facility] of VACCINE 00:00:00 [facility] TDAP 2015-09-19 Completed [facility] 00:00:00 [facility] TDAP (ADACEL) 2015-09-19 Completed [facility] VACCINE 00:00:00 [facility] TDAP 2015-09-19 Completed [facility] 00:00:00 [facility] TDAP (ADACEL) 2015-09-19 Completed [facility] VACCINE 00:00:00 [facility] TDAP 2015-09-19 Completed [facility] 00:00:00 [facility] TDAP (ADACEL) 2015-09-19 Completed [facility] VACCINE 00:00:00 [facility] TDAP 2015-09-19 Completed [facility] 00:00:00 [facility] TDAP (ADACEL) 2015-09-19 Completed [facility] VACCINE 00:00:00 [facility] TDAP 2015-09-19 Completed [facility] 00:00:00 [facility] TDAP (ADACEL) 2015-09-19 Completed [facility] VACCINE 00:00:00 [facility] TDAP 2015-09-19 Completed [facility] 00:00:00 [facility] TDAP (ADACEL) 2015-09-19 Completed [facility] VACCINE 00:00:00 [facility] TDAP 2015-09-19 Completed [facility] 00:00:00 [facility] TDAP (ADACEL) 2015-09-19 Completed [facility] VACCINE 00:00:00 [facility] TDAP 2015-09-19 Completed [facility] 00:00:00 [facility] TDAP (ADACEL) 2015-09-19 Completed [facility] of VACCINE 00:00:00 [facility] TDAP 2015-09-19 Completed [facility] 00:00:00 [facility] TDAP (ADACEL) 2015-09-19 Completed [facility] of VACCINE 00:00:00 [facility] TDAP 2015-09-19 Completed [facility] 00:00:00 [facility] Branch TDAP (ADACEL) 2015-09-19 Completed [facility] of VACCINE 00:00:00 [facility] Branch TDAP 2015-09-19 Completed [facility] 00:00:00 [facility] Branch TDAP (ADACEL) 2015-09-19 Completed [facility] VACCINE 00:00:00 [facility] TDAP 2015-09-19 Completed [facility] 00:00:00 [facility] TDAP (ADACEL) 2015-09-19 Completed [facility] VACCINE 00:00:00 [facility] TDAP 2015-09-19 Completed [facility] 00:00:00 [facility] TDAP (ADACEL) 2015-09-19 Completed [facility] VACCINE 00:00:00 [facility] TDAP 2015-09-19 Completed [facility] 00:00:00 [facility] TDAP (ADACEL) 2015-09-19 Completed [facility] VACCINE 00:00:00 [facility] TDAP 2015-09-19 Completed [facility] 00:00:00 [facility] TDAP (ADACEL) 2015-09-19 Completed [facility] VACCINE 00:00:00 [facility] TDAP 2015-09-19 Completed [facility] 00:00:00 [facility] TDAP (ADACEL) 2015-09-19 Completed [facility] VACCINE 00:00:00 [facility] TDAP 2015-09-19 Completed [facility] 00:00:00 [facility] TDAP (ADACEL) 2015-09-19 Completed [facility] VACCINE 00:00:00 [facility] TDAP 2015-09-19 Completed [facility] 00:00:00 [facility] TDAP (ADACEL) 2015-09-19 Completed [facility] VACCINE 00:00:00 [facility] TDAP 2015-09-19 Completed [facility] 00:00:00 [facility] TDAP (ADACEL) 2015-09-19 Completed [facility] VACCINE 00:00:00 [facility] TDAP 2015-09-19 Completed [facility] 00:00:00 [facility] TDAP (ADACEL) 2015-09-19 Completed [facility] of VACCINE 00:00:00 [facility] TDAP 2015-09-19 Completed [facility] of 00:00:00 [facility] TDAP (ADACEL) 2015-09-19 Completed [facility] of VACCINE 00:00:00 [facility] TDAP 2015-09-19 Completed [facility] 00:00:00 [facility] TDAP (ADACEL) 2015-09-19 Completed [facility] of VACCINE 00:00:00 [facility] Branch TDAP 2015-09-19 Completed [facility] 00:00:00 [facility] Branch TDAP (ADACEL) 2015-09-19 Completed [facility] of VACCINE 00:00:00 [facility] Branch TDAP 2015-09-19 Completed [facility] 00:00:00 [facility] Branch TDAP (ADACEL) 2015-09-19 Completed [facility] of VACCINE 00:00:00 [facility] Branch TDAP 2015-09-19 Completed [facility] 00:00:00 [facility] TDAP (ADACEL) 2015-09-19 Completed [facility] of VACCINE 00:00:00 [facility] TDAP 2015-09-19 Completed [facility] 00:00:00 [facility] TDAP (ADACEL) 2015-09-19 Completed [facility] VACCINE 00:00:00 [facility] [facility] TDAP 2015-09-19 Completed [facility] 00:00:00 [facility] TDAP (ADACEL) 2015-09-19 Completed University of VACCINE 00:00:00 [facility] TDAP 2015-09-19 Completed [facility] 00:00:00 [facility] TDAP (ADACEL) 2015-09-19 Completed University of VACCINE 00:00:00 [facility] TDAP 2015-09-19 Completed [facility] 00:00:00 [facility] TDAP (ADACEL) 2015-09-19 Completed [facility] of VACCINE 00:00:00 [facility] TDAP 2015-09-19 Completed [facility] of 00:00:00 [facility] TDAP (ADACEL) 2015-09-19 Completed University of VACCINE 00:00:00 [facility] TDAP 2015-09-19 Completed [facility] of 00:00:00 [facility] TDAP (ADACEL) 2015-09-19 Completed University of VACCINE 00:00:00 [facility] TDAP 2015-09-19 Completed [facility] of 00:00:00 [facility] TDAP (ADACEL) 2015-09-19 Completed University of VACCINE 00:00:00 [facility] TDAP 2015-09-19 Completed [facility] of 00:00:00 [facility] TDAP (ADACEL) 2015-09-19 Completed University of VACCINE 00:00:00 [facility] TDAP 2015-09-19 Completed [facility] of 00:00:00 [facility] Tdap 2015-09-19 Completed [facility] 00:00:00 Medicine Tdap 2015-09-19 Completed [facility] 00:00:00 Medicine Tdap 2015-09-19 Completed [facility] 00:00:00 Medicine Tdap 2015-09-19 Completed [facility] 00:00:00 Medicine Tdap 2015-09-19 Completed [facility] 00:00:00 Medicine Tdap 2015-09-19 Completed [facility] 00:00:00 Medicine Influenza Virus 2012-08-01 Completed Universit y of Vaccine - Whole 00:00:00 [facility] Influenza Virus 2012-08-01 Completed Universit y of Vaccine (3+ yrs) 00:00:00 [facility] Influenza Virus 2012-08-01 Completed [facility]it y of Vaccine - Whole 00:00:00 [facility] Influenza Virus 2012-08-01 Completed Universit y of Vaccine (3+ yrs) 00:00:00 [facility] Influenza Virus 2012-08-01 Completed [facility]it y of Vaccine - Whole 00:00:00 [facility] Influenza Virus 2012-08-01 Completed Universit y of Vaccine (3+ yrs) 00:00:00 [facility] Influenza Virus 2012-08-01 Completed [facility]it y of Vaccine - Whole 00:00:00 [facility] Influenza Virus 2012-08-01 Completed Universit y of Vaccine (3+ yrs) 00:00:00 [facility] Influenza Virus 2012-08-01 Completed [facility]it y of Vaccine - Whole 00:00:00 [facility] Influenza Virus 2012-08-01 Completed Universit y of Vaccine (3+ yrs) 00:00:00 [facility] Influenza Virus 2012-08-01 Completed [facility]it y of Vaccine - Whole 00:00:00 [facility] Influenza Virus 2012-08-01 Completed Universit y of Vaccine (3+ yrs) 00:00:00 [facility] Influenza Virus 2012-08-01 Completed [facility]it y of Vaccine - Whole 00:00:00 [facility] Influenza Virus 2012-08-01 Completed Universit y of Vaccine (3+ yrs) 00:00:00 [facility] Influenza Virus 2012-08-01 Completed [facility]it y of Vaccine - Whole 00:00:00 [facility] Influenza Virus 2012-08-01 Completed Universit y of Vaccine (3+ yrs) 00:00:00 [facility] Influenza Virus 2012-08-01 Completed [facility]it y of Vaccine - Whole 00:00:00 [facility] Influenza Virus 2012-08-01 Completed Universit y of Vaccine (3+ yrs) 00:00:00 [facility] Influenza Virus 2012-08-01 Completed [facility]it y of Vaccine - Whole 00:00:00 [facility] Influenza Virus 2012-08-01 Completed Universit y of Vaccine (3+ yrs) 00:00:00 [facility] Influenza Virus 2012-08-01 Completed [facility]it y of Vaccine - Whole 00:00:00 [facility] Influenza Virus 2012-08-01 Completed Universit y of Vaccine (3+ yrs) 00:00:00 [facility] Influenza Virus 2012-08-01 Completed [facility]it y of Vaccine - Whole 00:00:00 [facility] Influenza Virus 2012-08-01 Completed Universit y of Vaccine (3+ yrs) 00:00:00 [facility] Influenza Virus 2012-08-01 Completed [facility]it y of Vaccine - Whole 00:00:00 [facility] Influenza Virus 2012-08-01 Completed Universit y of Vaccine (3+ yrs) 00:00:00 [facility] Influenza Virus 2012-08-01 Completed [facility]it y of Vaccine - Whole 00:00:00 [facility] Influenza Virus 2012-08-01 Completed Universit y of Vaccine (3+ yrs) 00:00:00 [facility] Influenza Virus 2012-08-01 Completed [facility]it y of Vaccine - Whole 00:00:00 [facility] Influenza Virus 2012-08-01 Completed [facility]it y of Vaccine (3+ yrs) 00:00:00 [facility] Influenza Virus 2012-08-01 Completed [facility]it y of Vaccine - Whole 00:00:00 [facility] Influenza Virus 2012-08-01 Completed Universit y of Vaccine (3+ yrs) 00:00:00 [facility] Influenza Virus 2012-08-01 Completed [facility]it y of Vaccine - Whole 00:00:00 [facility] Influenza Virus 2012-08-01 Completed Universit y of Vaccine (3+ yrs) 00:00:00 [facility] Influenza Virus 2012-08-01 Completed [facility]it y of Vaccine - Whole 00:00:00 [facility] Influenza Virus 2012-08-01 Completed Universit y of Vaccine (3+ yrs) 00:00:00 [facility] Influenza Virus 2012-08-01 Completed [facility]it y of Vaccine - Whole 00:00:00 [facility] Influenza Virus 2012-08-01 Completed Universit y of Vaccine (3+ yrs) 00:00:00 [facility] Influenza Virus 2012-08-01 Completed [facility]it y of Vaccine - Whole 00:00:00 [facility] Influenza Virus 2012-08-01 Completed Universit y of Vaccine (3+ yrs) 00:00:00 [facility] Influenza Virus 2012-08-01 Completed [facility]it y of Vaccine - Whole 00:00:00 [facility] Influenza Virus 2012-08-01 Completed Universit y of Vaccine (3+ yrs) 00:00:00 [facility] Influenza Virus 2012-08-01 Completed [facility]it y of Vaccine - Whole 00:00:00 [facility] Influenza Virus 2012-08-01 Completed Universit y of Vaccine (3+ yrs) 00:00:00 [facility] Influenza Virus 2012-08-01 Completed [facility]it y of Vaccine - Whole 00:00:00 [facility] Influenza Virus 2012-08-01 Completed [facility]it y of Vaccine (3+ yrs) 00:00:00 [facility] Influenza Virus 2012-08-01 Completed [facility]it y of Vaccine - Whole 00:00:00 [facility] Influenza Virus 2012-08-01 Completed Universit y of Vaccine (3+ yrs) 00:00:00 [facility] Influenza Virus 2012-08-01 Completed [facility]it y of Vaccine - Whole 00:00:00 [facility] Influenza Virus 2012-08-01 Completed Universit y of Vaccine (3+ yrs) 00:00:00 [facility] Influenza Virus 2012-08-01 Completed [facility]it y of Vaccine - Whole 00:00:00 [facility] Influenza Virus 2012-08-01 Completed Universit y of Vaccine (3+ yrs) 00:00:00 [facility] Influenza Virus 2012-08-01 Completed [facility]it y of Vaccine - Whole 00:00:00 [facility] Influenza Virus 2012-08-01 Completed Universit y of Vaccine (3+ yrs) 00:00:00 [facility] Influenza Virus 2012-08-01 Completed [facility]it y of Vaccine - Whole 00:00:00 [facility] Influenza Virus 2012-08-01 Completed [facility]it y of Vaccine (3+ yrs) 00:00:00 [facility] Influenza Virus 2012-08-01 Completed [facility]it y of Vaccine - Whole 00:00:00 [facility] Influenza Virus 2012-08-01 Completed Universit y of Vaccine (3+ yrs) 00:00:00 [facility] Influenza Virus 2012-08-01 Completed [facility]it y of Vaccine - Whole 00:00:00 [facility] Influenza Virus 2012-08-01 Completed Universit y of Vaccine (3+ yrs) 00:00:00 [facility] Influenza Virus 2012-08-01 Completed [facility]it y of Vaccine - Whole 00:00:00 [facility] Influenza Virus 2012-08-01 Completed Universit y of Vaccine (3+ yrs) 00:00:00 [facility] Influenza Virus 2012-08-01 Completed [facility]it y of Vaccine - Whole 00:00:00 [facility] Influenza Virus 2012-08-01 Completed Universit y of Vaccine (3+ yrs) 00:00:00 [facility] Influenza Virus 2012-08-01 Completed [facility]it y of Vaccine - Whole 00:00:00 [facility] Influenza Virus 2012-08-01 Completed Universit y of Vaccine (3+ yrs) 00:00:00 [facility] Influenza Virus 2012-08-01 Completed [facility]it y of Vaccine - Whole 00:00:00 [facility] Influenza Virus 2012-08-01 Completed Universit y of Vaccine (3+ yrs) 00:00:00 [facility] Influenza Virus 2012-08-01 Completed [facility]it y of Vaccine - Whole 00:00:00 [facility] Influenza Virus 2012-08-01 Completed Universit y of Vaccine (3+ yrs) 00:00:00 [facility] Influenza Virus 2012-08-01 Completed [facility]it y of Vaccine - Whole 00:00:00 [facility] Influenza Virus 2012-08-01 Completed Universit y of Vaccine (3+ yrs) 00:00:00 [facility] Influenza Virus 2012-08-01 Completed [facility]it y of Vaccine - Whole 00:00:00 [facility] Influenza Virus 2012-08-01 Completed Universit y of Vaccine (3+ yrs) 00:00:00 [facility] Influenza Virus 2012-08-01 Completed [facility]it y of Vaccine - Whole 00:00:00 [facility] Influenza Virus 2012-08-01 Completed Universit y of Vaccine (3+ yrs) 00:00:00 [facility] Influenza Virus 2012-08-01 Completed [facility]it y of Vaccine - Whole 00:00:00 [facility] Influenza Virus 2012-08-01 Completed Universit y of Vaccine (3+ yrs) 00:00:00 [facility] Influenza Virus 2012-08-01 Completed [facility]it y of Vaccine - Whole 00:00:00 [facility] Influenza Virus 2012-08-01 Completed Universit y of Vaccine (3+ yrs) 00:00:00 [facility] Influenza Virus 2012-08-01 Completed [facility]it y of Vaccine - Whole 00:00:00 [facility] Influenza Virus 2012-08-01 Completed Universit y of Vaccine (3+ yrs) 00:00:00 [facility] Influenza Virus 2012-08-01 Completed [facility]it y of Vaccine - Whole 00:00:00 [facility] Influenza Virus 2012-08-01 Completed Universit y of Vaccine (3+ yrs) 00:00:00 [facility] Influenza Virus 2012-08-01 Completed [facility]it y of Vaccine - Whole 00:00:00 [facility] Influenza Virus 2012-08-01 Completed Universit y of Vaccine (3+ yrs) 00:00:00 [facility] Influenza Virus 2012-08-01 Completed [facility]it y of Vaccine - Whole 00:00:00 [facility] Influenza Virus 2012-08-01 Completed Universit y of Vaccine (3+ yrs) 00:00:00 [facility] Influenza Virus 2012-08-01 Completed Universit y of Vaccine - Whole 00:00:00 [facility] Influenza Virus 2012-08-01 Completed Universit y of Vaccine (3+ yrs) 00:00:00 [facility] Influenza Virus 2012-08-01 Completed [facility]it y of Vaccine - Whole 00:00:00 [facility] Influenza Virus 2012-08-01 Completed Universit y of Vaccine (3+ yrs) 00:00:00 [facility] Influenza Virus 2012-08-01 Completed Universit y of Vaccine - Whole 00:00:00 [facility] Influenza Virus 2012-08-01 Completed Universit y of Vaccine (3+ yrs) 00:00:00 [facility] Influenza Virus 2012-08-01 Completed [facility]it y of Vaccine - Whole 00:00:00 [facility] Influenza Virus 2012-08-01 Completed Universit y of Vaccine (3+ yrs) 00:00:00 [facility] Influenza Virus 2012-08-01 Completed [facility]it y of Vaccine - Whole 00:00:00 [facility] Influenza Virus 2012-08-01 Completed Universit y of Vaccine (3+ yrs) 00:00:00 [facility] Influenza Virus 2012-08-01 Completed [facility]it y of Vaccine - Whole 00:00:00 [facility] Influenza Virus 2012-08-01 Completed Universit y of Vaccine (3+ yrs) 00:00:00 [facility] Influenza Virus 2012-08-01 Completed Universit y of Vaccine - Whole 00:00:00 [facility] Influenza Virus 2012-08-01 Completed Universit y of Vaccine (3+ yrs) 00:00:00 [facility] Influenza Virus 2012-08-01 Completed [facility]it y of Vaccine - Whole 00:00:00 [facility] Influenza Virus 2012-08-01 Completed Universit y of Vaccine (3+ yrs) 00:00:00 [facility] Influenza Virus 2012-08-01 Completed Universit y of Vaccine - Whole 00:00:00 [facility] Influenza Virus 2012-08-01 Completed Universit y of Vaccine (3+ yrs) 00:00:00 [facility] Influenza Virus 2012-08-01 Completed [facility]it y of Vaccine - Whole 00:00:00 [facility] Influenza Virus 2012-08-01 Completed Universit y of Vaccine (3+ yrs) 00:00:00 [facility] Influenza Virus 2012-08-01 Completed [facility]it y of Vaccine - Whole 00:00:00 [facility] Influenza Virus 2012-08-01 Completed Universit y of Vaccine (3+ yrs) 00:00:00 [facility] Influenza (whole) 2012-08-01 Completed [facility] 00:00:00 Medicine Influenza (whole) 2012-08-01 Completed [facility] 00:00:00 Medicine Influenza (whole) 2012-08-01 Completed [facility] 00:00:00 Medicine Influenza (whole) 2012-08-01 Completed [facility] 00:00:00 Medicine Influenza (whole) 2012-08-01 Completed [facility] 00:00:00 Medicine Influenza (whole) 2012-08-01 Completed [facility] 00:00:00 Medicine Influenza (whole) 2012-08-01 Completed [facility] 00:00:00 Medicine TDAP 2012-02-02 Completed [facility] of 00:00:00 [facility] TDAP 2012-02-02 Completed University of 00:00:00 [facility] TDAP 2012-02-02 Completed University of 00:00:00 [facility] TDAP 2012-02-02 Completed University of 00:00:00 [facility] TDAP 2012-02-02 Completed [facility] 00:00:00 [facility] TDAP 2012-02-02 Completed [facility] 00:00:00 [facility] TDAP 2012-02-02 Completed [facility] 00:00:00 [facility] TDAP 2012-02-02 Completed [facility] 00:00:00 [facility] TDAP 2012-02-02 Completed [facility] 00:00:00 [facility] TDAP 2012-02-02 Completed [facility] 00:00:00 [facility] TDAP 2012-02-02 Completed [facility] 00:00:00 [facility] TDAP 2012-02-02 Completed [facility] 00:00:00 [facility] TDAP 2012-02-02 Completed [facility] of 00:00:00 [facility] TDAP 2012-02-02 Completed [facility] 00:00:00 [facility] TDAP 2012-02-02 Completed [facility] 00:00:00 [facility] TDAP 2012-02-02 Completed [facility] 00:00:00 [facility] TDAP 2012-02-02 Completed [facility] 00:00:00 [facility] TDAP 2012-02-02 Completed [facility] 00:00:00 [facility] TDAP 2012-02-02 Completed [facility] 00:00:00 [facility] TDAP 2012-02-02 Completed [facility] 00:00:00 [facility] TDAP 2012-02-02 Completed [facility] 00:00:00 [facility] TDAP 2012-02-02 Completed [facility] 00:00:00 [facility] TDAP 2012-02-02 Completed [facility] 00:00:00 [facility] TDAP 2012-02-02 Completed [facility] 00:00:00 [facility] TDAP 2012-02-02 Completed [facility] 00:00:00 [facility] TDAP 2012-02-02 Completed [facility] 00:00:00 [facility] TDAP 2012-02-02 Completed [facility] 00:00:00 [facility] TDAP 2012-02-02 Completed [facility] 00:00:00 [facility] TDAP 2012-02-02 Completed [facility] 00:00:00 [facility] TDAP 2012-02-02 Completed [facility] 00:00:00 [facility] TDAP 2012-02-02 Completed [facility] 00:00:00 [facility] TDAP 2012-02-02 Completed [facility] 00:00:00 [facility] TDAP 2012-02-02 Completed [facility] 00:00:00 [facility] TDAP 2012-02-02 Completed [facility] 00:00:00 [facility] TDAP 2012-02-02 Completed [facility] 00:00:00 [facility] TDAP 2012-02-02 Completed [facility] 00:00:00 [facility] TDAP 2012-02-02 Completed [facility] 00:00:00 [facility] TDAP 2012-02-02 Completed [facility] 00:00:00 [facility] TDAP 2012-02-02 Completed [facility] of 00:00:00 [facility] TDAP 2012-02-02 Completed [facility] 00:00:00 [facility] TDAP 2012-02-02 Completed [facility] 00:00:00 [facility] TDAP 2012-02-02 Completed [facility] 00:00:00 [facility] TDAP 2012-02-02 Completed [facility] 00:00:00 [facility] TDAP 2012-02-02 Completed [facility] 00:00:00 [facility] TDAP 2012-02-02 Completed [facility] 00:00:00 [facility] TDAP 2012-02-02 Completed [facility] 00:00:00 [facility] TDAP 2012-02-02 Completed [facility] 00:00:00 [facility] TDAP 2012-02-02 Completed [facility] 00:00:00 [facility] TDAP 2012-02-02 Completed [facility] 00:00:00 [facility] TDAP 2012-02-02 Completed [facility] 00:00:00 [facility] TDAP 2012-02-02 Completed [facility] 00:00:00 [facility] TDAP 2012-02-02 Completed [facility] 00:00:00 [facility] TDAP 2012-02-02 Completed [facility] of 00:00:00 [facility] TDAP 2012-02-02 Completed [facility] of 00:00:00 [facility] TDAP 2012-02-02 Completed [facility] 00:00:00 [facility] Tdap 2012-02-02 Completed [facility] 00:00:00 Medicine Tdap 2012-02-02 Completed [facility] 00:00:00 Medicine Tdap 2012-02-02 Completed [facility] 00:00:00 Medicine Tdap 2012-02-02 Completed [facility] 00:00:00 Medicine Tdap 2012-02-02 Completed [facility] 00:00:00 Medicine Tdap 2012-02-02 Completed [facility] 00:00:00 Medicine Tdap 2012-02-02 Completed [facility] 00:00:00 Medicine Vital Signs Vital Name Observation Time Observation Value Comments Source Systolic blood 2022-11-26 20:18:00 118 mm[Hg] Univer sity of pressure [facility] Diastolic blood 2022-11-26 20:18:00 75 mm[Hg] Unive rsity of pressure [facility] Heart rate 2022-11-26 20:18:00 74 /min Universi ty of [facility] Body temperature 2022-11-26 20:18:00 36.67 Carole Univ ersity of [facility] Body height 2022-11-26 20:18:00 172.7 cm Universi ty of [facility] Body weight 2022-11-26 20:18:00 67.586 kg Universi ty of [facility] BMI 2022-11-26 20:18:00 22.66 kg/m2 Universi ty [facility] [place] Oxygen saturation in 2022-11-26 20:18:00 99 /min University of Arterial blood by [facility] Pulse oximetry Branch Systolic blood 2022-11-22 22:06:41 120 mm[Hg] Univer sity of pressure [facility] Diastolic blood 2022-11-22 22:06:41 70 mm[Hg] Unive rsity of pressure [facility] Heart rate 2022-11-22 22:06:41 80 /min [facility] Body temperature 2022-11-22 22:06:41 36.61 Carole Univ ersity of [facility] Respiratory rate 2022-11-22 22:06:41 16 /min Univ ersity of [facility] Oxygen saturation in 2022-11-22 22:06:41 99 /min University of Arterial blood by [facility] P[facility]xim[facility] Body weight 2022-11-22 21:27:00 66.225 kg [facility] BMI 2022-11-22 21:27:00 22.20 kg/m2 [facility] Systolic blood 2022-11-19 20:10:00 139 mm[Hg] Univer [facility]ity of pressure [facility] Diastolic blood 2022-11-19 20:10:00 87 mm[Hg] Unive rsity of pressure [facility] Heart rate 2022-11-19 20:10:00 77 /min Universi ty of [facility] Body temperature 2022-11-19 20:10:00 36.56 Carole Univ ersity of [facility] Respiratory rate 2022-11-19 20:10:00 16 /min Univ ersity of [facility] Body height 2022-11-19 20:10:00 172.7 cm [facility] Body weight 2022-11-19 20:10:00 65.885 kg [facility]i [facility] BMI 2022-11-19 20:10:00 22.09 kg/m2 Universi ty of [facility] Oxygen saturation in 2022-11-19 20:10:00 100 /min [facility] Arterial blood by [facility] Pulse oximetry Branch Systolic blood 2022-10-20 19:08:00 126 mm[Hg] Univer sity of pressure [facility] Diastolic blood 2022-10-20 19:08:00 79 mm[Hg] Unive rsity of pressure [facility] Heart rate 2022-10-20 19:08:00 84 /min Universi ty of [facility] Body temperature 2022-10-20 19:08:00 35.94 Carole Univ ersity of [facility] Body height 2022-10-20 19:08:00 172.7 cm [facility]i [facility] Body weight 2022-10-20 19:08:00 67.586 kg [facility] BMI 2022-10-20 19:08:00 22.66 kg/m2 [facility] Systolic blood 2022-10-12 16:06:00 132 mm[Hg] Univer sity of pressure [facility] Diastolic blood 2022-10-12 16:06:00 84 mm[Hg] Unive rsity of pressure [facility] Heart rate 2022-10-12 16:06:00 76 /min [facility] Body height 2022-10-12 16:06:00 172.7 cm [facility] Body weight 2022-10-12 16:06:00 62.596 kg [facility] BMI 2022-10-12 16:06:00 20.98 kg/m2 [facility] Systolic blood 2022-10-09 18:10:00 113 mm[Hg] Univer sity of pressure [facility] Diastolic blood 2022-10-09 18:10:00 65 mm[Hg] Unive rsity of pressure [facility] Heart rate 2022-10-09 18:10:00 68 /min Universi ty of [facility] Body temperature 2022-10-09 18:10:00 36.33 Caroel Univ ersity of [facility] Respiratory rate 2022-10-09 18:10:00 16 /min [facility] [facility] Body height 2022-10-09 18:10:00 172.7 cm [facility]i ty of [facility] Body weight 2022-10-09 18:10:00 66.588 kg [facility] [place] [facility] BMI 2022-10-09 18:10:00 22.32 kg/m2 Universi ty of [facility] Oxygen saturation in 2022-10-09 18:10:00 98 /min University of Arterial blood by [facility] Pulse oximetry Branch Systolic blood 2022-09-21 19:13:00 123 mm[Hg] Univer sity of pressure [facility] Diastolic blood 2022-09-21 19:13:00 82 mm[Hg] Unive rsity of pressure [facility] Heart rate 2022-09-21 19:13:00 101 /min [facility] [place] [facility] Body temperature 2022-09-21 19:13:00 36.78 Carole Univ ersity of [facility] Body height 2022-09-21 19:13:00 172.7 cm [facility] Body weight 2022-09-21 19:13:00 65.318 kg [facility] [place] [facility] BMI 2022-09-21 19:13:00 21.90 kg/m2 [facility] Systolic blood 2022-09-16 02:51:00 121 mm[Hg] Univer sity of pressure [facility] Diastolic blood 2022-09-16 02:51:00 75 mm[Hg] Unive rsity of pressure [facility] Heart rate 2022-09-16 02:51:00 84 /min [facility]i ty of [facility] Body temperature 2022-09-16 02:51:00 36.83 Carole Univ ersity of [facility] Respiratory rate 2022-09-16 02:51:00 18 /min Univ ersity of [facility] Body height 2022-09-16 02:51:00 172.7 cm [facility] Body weight 2022-09-16 02:51:00 65.182 kg [facility] [place] [facility] BMI 2022-09-16 02:51:00 21.85 kg/m2 [facility]i ty of [facility] Oxygen saturation in 2022-09-16 02:51:00 98 /min University of Arterial blood by [facility] Pulse oximetry Branch Systolic blood 2022-09-08 17:22:00 121 mm[Hg] Univer sity of pressure [place] [facility] Diastolic blood 2022-09-08 17:22:00 74 mm[Hg] Unive rsity of pressure [facility] Heart rate 2022-09-08 17:22:00 73 /min [facility] ty of [facility] Body temperature 2022-09-08 17:22:00 36.28 Carole Univ ersity of [facility] Body height 2022-09-08 17:22:00 170.2 cm [facility] Body weight 2022-09-08 17:22:00 64.638 kg [facility] [place] [facility] BMI 2022-09-08 17:22:00 22.32 kg/m2 [facility] [place] [facility] Systolic blood 2022-08-10 19:51:00 109 mm[Hg] Univer sity of pressure [facility] Diastolic blood 2022-08-10 19:51:00 69 mm[Hg] Unive rsity of pressure [facility] Heart rate 2022-08-10 19:51:00 85 /min [facility] [place] [facility] Body temperature 2022-08-10 19:51:00 36.83 Carole [facility] [place] [facility] Body height 2022-08-10 19:51:00 170.2 cm [facility] Body weight 2022-08-10 19:51:00 65.772 kg [facility] BMI 2022-08-10 19:51:00 22.71 kg/m2 [facility] [place] [facility] Systolic blood 2022-07-31 00:55:00 138 mm[Hg] Univer sity of pressure [facility] Diastolic blood 2022-07-31 00:55:00 71 mm[Hg] Unive rsity of pressure [facility] Heart rate 2022-07-31 00:55:00 93 /min [facility] Body temperature 2022-07-31 00:55:00 37.11 Carole [facility] [place] [facility] Respiratory rate 2022-07-31 00:55:00 18 /min [facility] [place] [facility] Oxygen saturation in 2022-07-31 00:55:00 100 /min University of Arterial blood by [facility] Pulse oximetry Branch Body weight 2022-07-30 08:16:00 69.99 kg [facility] [place] [facility] BMI 2022-07-30 08:16:00 24.17 kg/m2 [facility] [place] [facility] Body height 2022-07-26 20:08:00 170.2 cm [facility] [place] [facility] Systolic blood 2022-07-26 18:05:00 108 mm[Hg] Univer sity of pressure [facility] Diastolic blood 2022-07-26 18:05:00 55 mm[Hg] Unive rsity of pressure [facility] Heart rate 2022-07-26 18:05:00 67 /min [facility] [place] [facility] Respiratory rate 2022-07-26 18:05:00 13 /min Univ [facility] [place] [facility] Oxygen saturation in 2022-07-26 18:05:00 100 /min University of Arterial blood by [facility] Pulse oximetry Branch Body temperature 2022-07-26 12:05:00 36.17 Carole [facility] [place] [facility] Body height 2022-07-26 11:58:00 170.2 cm [facility] [place] [facility] Body weight 2022-07-26 11:58:00 66.679 kg [facility] [place] [facility] BMI 2022-07-26 11:58:00 25.37 kg/m2 [facility] [place] [facility] Systolic blood 2022-07-12 20:14:00 111 mm[Hg] Univer sity of pressure [place] [facility] Diastolic blood 2022-07-12 20:14:00 73 mm[Hg] Unive rsity of pressure [facility] Heart rate 2022-07-12 20:14:00 90 /min [facility] [place] [facility] [place] Body height 2022-07-12 20:14:00 170.2 cm [facility] [place] [facility] Body weight 2022-07-12 20:14:00 66.679 kg [facility] [place] [facility] BMI 2022-07-12 20:14:00 23.02 kg/m2 [facility]i ty of [facility] Oxygen saturation in 2022-07-12 20:14:00 97 /min University Arterial blood by [facility] Pulse oximetry Branch Systolic blood 2022-07-06 19:59:00 133 mm[Hg] [facility] Medicine Diastolic blood 2022-07-06 19:59:00 81 mm[Hg] [facility] Heart rate 2022-07-06 19:59:00 83 /min [facility] Respiratory rate 2022-07-06 19:59:00 16 /min [facility] Body height 2022-07-06 19:59:00 172.7 cm [facility] Body weight 2022-07-06 19:59:00 66.679 kg [facility] BMI 2022-07-06 19:59:00 22.35 kg/m2 [facility] Systolic blood 2022-06-23 15:16:00 130 mm[Hg] Univer sity of pressure [facility] Diastolic blood 2022-06-23 15:16:00 76 mm[Hg] Unive rsity of [facility] Heart rate 2022-06-23 15:16:00 91 /min [facility]i ty of [facility] Body temperature 2022-06-23 15:16:00 36.06 Carole Univ ersity of [facility] Body height 2022-06-23 15:16:00 170.2 cm [facility]i ty of [facility] Body weight 2022-06-23 15:16:00 66.769 kg [facility] [place] [facility] BMI 2022-06-23 15:16:00 23.05 kg/m2 [facility]i ty of [facility] Systolic blood 2022-06-23 15:16:00 130 mm[Hg] Univer sity of pressure [facility] Diastolic blood 2022-06-23 15:16:00 76 mm[Hg] Unive rsity of pressure [facility] Heart rate 2022-06-23 15:16:00 91 /min [facility]i ty of [facility] Body temperature 2022-06-23 15:16:00 36.06 Carole Univ ersity of [facility] Body height 2022-06-23 15:16:00 170.2 cm [facility]i ty of [facility] Body weight 2022-06-23 15:16:00 66.769 kg [facility]i ty of [facility] BMI 2022-06-23 15:16:00 23.05 kg/m2 Universi ty [facility] Systolic blood 2022-02-02 20:33:00 114 mm[Hg] [facility] pressure Medicine Diastolic blood 2022-02-02 20:33:00 82 mm[Hg] [facility] pressure Medicine Heart rate 2022-02-02 20:33:00 67 /min [facility] Medicine Body height 2022-02-02 20:33:00 172.7 cm [facility] Body weight 2022-02-02 20:33:00 67.132 kg [facility] BMI 2022-02-02 20:33:00 22.50 kg/m2 [facility] Medicine Systolic blood 2021-10-26 19:24:00 128 mm[Hg] [facility] of pressure Medicine Diastolic blood 2021-10-26 19:24:00 86 mm[Hg] [facility] Medicine Heart rate 2021-10-26 19:24:00 72 /min [facility] Medicine Body height 2021-10-26 19:24:00 172.7 cm [facility] Medicine Body weight 2021-10-26 19:24:00 67.132 kg [facility] Medicine BMI 2021-10-26 19:24:00 22.50 kg/m2 [facility] Medicine Systolic blood 2021-02-26 20:41:00 118 mm[Hg] Univer sity of pressure [facility] Diastolic blood 2021-02-26 20:41:00 72 mm[Hg] Unive rsity of pressure [facility] Heart rate 2021-02-26 20:41:00 91 /min [facility] [place] [facility] Body temperature 2021-02-26 20:41:00 36.83 Carole [facility] [place] [facility] Respiratory rate 2021-02-26 20:41:00 18 /min [facility] [place] [facility] Body height 2021-02-26 20:41:00 171.5 cm [facility] [place] [facility] Body weight 2021-02-26 20:41:00 64.864 kg [facility] [place] [facility] BMI 2021-02-26 20:41:00 22.07 kg/m2 [facility] [place] [facility] Oxygen saturation in 2021-02-26 20:41:00 98 /min [facility]ial blood by [facility] Pulse oximetry Branch Systolic blood 2021-02-26 20:41:00 118 mm[Hg] Univer sity of [facility] Diastolic blood 2021-02-26 20:41:00 72 mm[Hg] Unive rsity of [facility] [place] Heart rate 2021-02-26 20:41:00 91 /min [facility] [place] [facility] Body temperature 2021-02-26 20:41:00 36.83 Carole [facility] [place] [facility] Respiratory rate 2021-02-26 20:41:00 18 /min [facility] [place] [facility] Body height 2021-02-26 20:41:00 171.5 cm [facility] [place] [facility] Body weight 2021-02-26 20:41:00 64.864 kg [facility] [place] [facility] BMI 2021-02-26 20:41:00 22.07 kg/m2 [facility] [place] [facility] Oxygen saturation in 2021-02-26 20:41:00 98 /min University of Arterial blood by [facility] Pulse oximetry Branch Systolic blood 2021-02-19 18:39:00 103 mm[Hg] [facility] pressure Medicine Diastolic blood 2021-02-19 18:39:00 69 mm[Hg] [facility] Medicine Heart rate 2021-02-19 18:39:00 82 /min [facility] Body height 2021-02-19 18:39:00 172.7 cm [facility] Body weight 2021-02-19 18:39:00 63.05 kg [facility] BMI 2021-02-19 18:39:00 21.13 kg/m2 [facility] Systolic blood 2021-02-19 18:39:00 103 mm[Hg] [facility] of pressure Medicine Diastolic blood 2021-02-19 18:39:00 69 mm[Hg] [facility] Medicine Heart rate 2021-02-19 18:39:00 82 /min [facility] Body height 2021-02-19 18:39:00 172.7 cm [facility] Body weight 2021-02-19 18:39:00 63.05 kg [facility] BMI 2021-02-19 18:39:00 21.13 kg/m2 [facility] Systolic blood 2020-05-26 18:08:00 117 mm[Hg] [facility] of pressure Medicine Diastolic blood 2020-05-26 18:08:00 74 mm[Hg] [facility] Medicine Heart rate 2020-05-26 18:08:00 77 /min [facility] Body height 2020-05-26 18:08:00 172.7 cm [facility] Body weight 2020-05-26 18:08:00 63.05 kg [facility] BMI 2020-05-26 18:08:00 21.13 kg/m2 [facility] Systolic blood 2020-05-26 18:08:00 117 mm[Hg] [facility] of pressure Medicine Diastolic blood 2020-05-26 18:08:00 74 mm[Hg] [facility] of pressure Medicine Heart rate 2020-05-26 18:08:00 77 /min [facility] Body height 2020-05-26 18:08:00 172.7 cm [facility] Body weight 2020-05-26 18:08:00 63.05 kg [facility] BMI 2020-05-26 18:08:00 21.13 kg/m2 [facility] Body height 2020-02-04 14:19:00 172.7 cm [facility] Body weight 2020-02-04 14:19:00 60.782 kg [facility] ollege of Medicine BMI 2020-02-04 14:19:00 20.37 kg/m2 [facility] ollege of Medicine Systolic blood 2020-02-04 14:19:00 104 mm[Hg] [facility] of pressure Medicine Diastolic blood 2020-02-04 14:19:00 72 mm[Hg] [facility] pressure Medicine Heart rate 2020-02-04 14:19:00 79 /min [facility] ollege of Medicine Body temperature 2020-02-04 14:19:00 36.61 Carole [facility] Respiratory rate 2020-02-04 14:19:00 16 /min [facility] Body height 2020-02-04 14:19:00 172.7 cm [facility] ollege of [facility] Body weight 2020-02-04 14:19:00 60.782 kg [facility] ollege of [facility] BMI 2020-02-04 14:19:00 20.37 kg/m2 [facility] ollege of [facility] Systolic blood 2020-02-04 14:19:00 104 mm[Hg] [facility] pressure Medicine Diastolic blood 2020-02-04 14:19:00 72 mm[Hg] [facility] pressure Medicine Heart rate 2020-02-04 14:19:00 79 /min [facility] ollege of [facility] Body temperature 2020-02-04 14:19:00 36.61 Carole [facility] Respiratory rate 2020-02-04 14:19:00 16 /min [facility] Systolic blood 2019-08-15 19:10:00 107 mm[Hg] [facility] pressure Medicine Diastolic blood 2019-08-15 19:10:00 76 mm[Hg] [facility] pressure Medicine Heart rate 2019-08-15 19:10:00 89 /min [facility] ollege of Medicine Body temperature 2019-08-15 19:10:00 36.5 Carole [facility] Body height 2019-08-15 19:10:00 172.7 cm [facility] ol[facility] of Medicine Body weight 2019-08-15 19:10:00 60.419 kg [facility] ollege of Medicine BMI 2019-08-15 19:10:00 20.25 kg/m2 [facility] Systolic blood 2019-08-15 19:10:00 107 mm[Hg] [facility] Medicine Diastolic blood 2019-08-15 19:10:00 76 mm[Hg] [facility] Medicine Heart rate 2019-08-15 19:10:00 89 /min [facility] Body temperature 2019-08-15 19:10:00 36.5 Carole [facility] Body height 2019-08-15 19:10:00 172.7 cm [facility] Body weight 2019-08-15 19:10:00 60.419 kg [facility] BMI 2019-08-15 19:10:00 20.25 kg/m2 [facility] Systolic blood 2021-12-09 10:25:00 106 mm[Hg] [facility] Diastolic blood 2021-12-09 10:25:00 61 mm[Hg] [facility] Heart rate 2021-12-09 10:25:00 70 /min [facility] Respiratory rate 2021-12-09 10:25:00 17 /min [facility] Oxygen saturation in 2021-12-09 10:25:00 99 /min [facility] Arterial blood by Medical Ce nter Pulse oximetry Body weight 2021-12-09 09:24:00 68.04 kg [facility] BMI 2021-12-09 09:24:00 23.49 kg/m2 [facility] Procedures Procedure Date / Time Performing Clinician Source Performed CONSENT/REFUSAL FOR 2022-11-22 21:21:27 Doctor Unassigned, [facility] DIAGNOSIS AND TREATMENT [facility] XR LUMBAR SPINE 2 VW 2022-11-19 20:34:00 [facility] XR HIPS 2 VW LEFT 2022-09-08 17:39:43 Michael [facility] INSURANCE CORRESPONDENCE 2022-08-27 05:01:00 Doctor Unassigned, [facility] EXTERNAL PROVIDER RECORDS 2022-07-29 05:01:00 Doctor Unassigned, [facility] Name Medical Branch CBC WITHOUT DIFF 2022-07-28 10:12:00 [facility] CBC WITHOUT DIFF 2022-07-27 08:29:00 [facility] CBC WITHOUT DIFF 2022-07-27 08:29:00 [facility]W LEFT 2022-07-26 19:06:06 [facility] XR HIPS 2 VW LEFT 2022-07-26 19:06:06 [facility] POCT GLUCOSE (AUTOMATED) 2022-07-26 18:15:00 [facility] 2022-07-26 18:15:00 Michael Anderson [facility] TOTAL HIP ARTHROPLASTY 2022-07-26 13:41:00 Michael Anderson [facility] TOTAL HIP ARTHROPLASTY 2022-07-26 13:41:00 Michael Anderson [facility] CBC WITH DIFF 2022-07-26 12:[facility]00 [facility] CBC WITH DIFF 2022-07-26 12:15:00 [facility] HB ABO GROUPING 2022-07-26 12:14:00 [facility] HB ABO GROUPING 2022-07-26 12:14:00 [facility] ASSIGNMENT OF BENEFITS 2022-07-26 11:17:30 Doctor Unasslaura, [facility] EXTERNAL PROVIDER RECORDS 2022-07-12 05:01:00 Doctor Adriana, [facility] Name [facility] CBC W/O DIFF W PLT 2022-07-06 15:22:42 [facility] HEPATIC FUNCTION PANEL 2022-07-06 15:22:42 [facility] VALPROIC ACID LEVEL 2022-07-06 15:22:42 [facility] lorrie of (TOTAL) Medicine MEDICAL RELEASE/CLEARANCE 2022-06-25 05:01:00 Doctor Adriana, [facility] FORMS [facility] PATIENT QUESTIONNAIRE 2022-06-24 05:01:00 Doctor Unassigned, [facility] DISCLOSURE AND CONSENT, 2022-06-24 05:01:00 [facility] PROCEDURES PATIENT QUESTIONNAIRE 2022-06-24 05:01:00 Doctor Unassigned, [facility] DISCLOSURE AND CONSENT, 2022-06-24 05:01:00 [facility] PROCEDURES OP CLINIC NOTES/CONSULTS 2021-12-15 06:01:00 Doctor Unassigned, [facility] MR BRAIN WITHOUT IV 2021-12-09 10:22:00 Bo Villafuerte [facility] XR CHEST 2 VIEWS 2021-12-09 08:50:00 Catalina Irving [facility] XR HAND 3+ VW RIGHT 2021-02-26 22:25:10 Delia Naranjo [facility] [place] [facility] [place] ASSIGNMENT OF BENEFITS 2021-02-26 22:17:40 [facility] Plan of Care Planned Activity Planned Date Details Comments Source Future Scheduled 2025-09-19 DTaP,Tdap,and Td Univers ity of Test 00:00:00 Vaccines (3 - Td) [place] [facility] [code = DTaP,Tdap,and Branch Td Vaccines (3 - Td)] Future Scheduled 2025-09-19 DTaP,Tdap,and Td Univers ity of Test 00:00:00 Vaccines (3 - Td) [place] [facility] [code = DTaP,Tdap,and Branch Td Vaccines (3 - Td)] Future Scheduled 2025-09-19 DTaP,Tdap,and Td Univers ity of Test 00:00:00 Vaccines (3 - Td) [place] [facility] [code = DTaP,Tdap,and Branch Td Vaccines (3 - Td)] Future Scheduled 2025-09-19 DTaP,Tdap,and Td Univers ity of Test 00:00:00 Vaccines (3 - Td) [facility] michelle [code = DTaP,Tdap,and Branch Td Vaccines (3 - Td)] Future Scheduled 2025-09-19 DTAP/TDAP/TD VACCINES [facility] Test 00:00:00 (3 - Td or Tdap) [code Medic al Center = DTAP/TDAP/TD VACCINES (3 - Td or Tdap)] Future Scheduled 2025-09-19 DTAP/TDAP/TD VACCINES [facility] Test 00:00:00 (3 - Td or Tdap) [code Medic al Center = DTAP/TDAP/TD VACCINES (3 - Td or Tdap)] Future Scheduled 2025-09-19 DTAP/TDAP/TD VACCINES [facility] Test 00:00:00 (3 - Td or Tdap) [code Medic al Center = DTAP/TDAP/TD VACCINES (3 - Td or Tdap)] Future Scheduled 2025-09-19 DTAP/TDAP/TD VACCINES [facility] Test 00:00:00 (3 - Td or Tdap) [code Medic al Center = DTAP/TDAP/TD VACCINES (3 - Td or Tdap)] Future Scheduled 2025-09-19 DTAP/TDAP/TD VACCINES [facility] Test 00:00:00 (3 - Td or Tdap) [code Medic al Center = DTAP/TDAP/TD VACCINES (3 - Td or Tdap)] Future Scheduled 2022-10-[address] [facility] Test 00:00:00 (12+) [code = Medical Center DEPRESSION SCREENING (12+)] Future Scheduled 2022-07-06 Hepatitis C screening [facility] Test 15:31:45 (procedure) [code = of Medic ine 766080127] Future Scheduled 2022-07-06 [facility] 15:31:45 virus screening of Medicine (procedure) [code = 719619408] Future Scheduled 2022-07-06 MEDICARE AWV (Initial) [facility] 15:31:45 [code = MEDICARE AWV of Medi cine (Initial)] Future Scheduled 2022-07-06 COVID-19 Vaccine (3 - [facility] Test 15:31:45 Booster for Pfizer of Medici ne series) [code = COVID-19 Vaccine (3 - Booster for Pfizer series)] Future Scheduled 2022-07-06 TETANUS SHOT (ADULT) [facility] Test 15:31:45 [code = TETANUS SHOT of Medi cine (ADULT)] Future Scheduled 2022-07-06 CBC W/O DIFF W PLT Ordered: [facility] Test 15:22:42 [code = 6690-2] 07/06/2022 of Medicine Future Scheduled 2022-07-06 HEPATIC FUNCTION PANEL Ordered: [facility] Test 15:22:42 [code = 31632-8] 07/06/2022 of Medicine Future Scheduled 2022-07-06 VALPROIC ACID LEVEL Ordered: [facility] Test 15:22:42 (TOTAL) [code = 07/06/2022 of Medicine 4086-5] Future Scheduled 2022-06-24 INFLUENZA VACCINE (#1) [facility] 00:[facility]:00 [code = INFLUENZA Medical Ce nter VACCINE (#1)] Future Scheduled 2022-06-24 INFLUENZA VACCINE (#1) [facility] Test 00:00:00 [code = INFLUENZA Medical Ce nter VACCINE (#1)] Future Scheduled 2022-06-24 INFLUENZA VACCINE (#1) [facility] Test 00:00:00 [code = INFLUENZA Medical Ce nter VACCINE (#1)] Future Scheduled 2022-06-24 INFLUENZA VACCINE (#1) [facility] Test 00:00:00 [code = INFLUENZA Medical Ce nter VACCINE (#1)] Future Scheduled 2022-06-24 INFLUENZA VACCINE (#1) [facility] Test 00:00:00 [code = INFLUENZA Medical Ce nter VACCINE (#1)] Future Scheduled 2022-02-26 Depression screening Uni versity of Test 00:00:00 (procedure) [code = [place] [facility] [id number]] Branch Future Scheduled 2022-02-26 Depression screening Uni versity of Test 00:00:00 (procedure) [code = [place] [facility] [id number]] Branch Future Scheduled 2022-02-26 Depression screening Uni versity of Test 00:00:00 (procedure) [code = [place] [id number]] Branch Future Scheduled 2022-02-02 Hepatitis C screening [facility] Test 16:10:13 (procedure) [code = of Medic ine 349302739] Future Scheduled 2022-02-02 Human immunodeficiency [facility] Test 16:10:13 virus screening of Medicine (procedure) [code = 831181513] Future Scheduled 2022-02-02 COVID-19 Vaccine (3 - [employer] Test 16:10:13 Booster for Pfizer of Medici ne series) [code = COVID-19 Vaccine (3 - Booster for Pfizer series)] Future Scheduled 2022-02-02 FLU VACCINE > 6 MONTHS [employer] Test 16:10:13 [code = FLU VACCINE > of Med icine 6 MONTHS] Future Scheduled 2022-02-02 TETANUS SHOT (ADULT) [employer] Test 16:10:13 [code = TETANUS SHOT of Medi cine (ADULT)] Future Scheduled 2022-02-02 VALPROIC ACID LEVEL Ordered: [employer] Test 15:51:24 (TOTAL) [code = 02/02/2022 of Medicine 4086-5] Future Scheduled 2022-02-02 CBC W/O DIFF W PLT Ordered: [employer] Test 15:51:24 [code = 6690-2] 02/02/2022 of Medicine Future Scheduled 2022-02-02 HEPATIC FUNCTION PANEL Ordered: [employer] Test 15:51:24 [code = 14496-0] 02/02/2022 of Medicine Future Scheduled 2022-02-02 EEG AWAKE OR DROWSY Ordered: [employer] Test 15:51:24 ROUTINE [code = NOCPT] 02/02/2022 of Me dicine Future Scheduled 2021-10-26 MRI BRAIN WO CONTRAST 1 Occurrences [employer] Test 13:42:28 [code = 24969-9] starting of Medicine 10/26/2021 until 10/26/2022 Future Scheduled 2021-10-26 Hepatitis C screening [employer] Test 13:25:09 (procedure) [code = of Medic ine 340734809] Future Scheduled 2021-10-26 Human immunodeficiency [employer] Test 13:25:09 virus screening of Medicine (procedure) [code = 809000621] Future Scheduled 2021-10-26 FLU VACCINE > 6 MONTHS [employer] Test 13:25:09 [code = FLU VACCINE > of Med icine 6 MONTHS] Future Scheduled 2021-10-26 TETANUS SHOT (ADULT) [employer] Test 13:25:09 [code = TETANUS SHOT of Medi cine (ADULT)] Future Scheduled 2021-10-[address] [facility] Test 00:00:00 (12+) [code = Medical Center DEPRESSION SCREENING (12+)] Future Scheduled 2021-10-[address] [facility] Test 00:00:00 (12+) [code = Medical Center DEPRESSION SCREENING (12+)] Future Scheduled 2021-10-[address] [facility] Test 00:00:00 (12+) [code = Medical Center DEPRESSION SCREENING (12+)] Future Scheduled 2021-10-[address] [facility] Test 00:00:00 (12+) [code = Medical Center DEPRESSION SCREENING (12+)] Future Scheduled 2021-05-16 COVID-19 VACCINE (3 - [facility] Test 00:[facility]:00 Booster for Pfizer Medical C enter series) [code = COVID-19 VACCINE (3 - Booster for Pfizer series)] Future Scheduled 2021-05-16 COVID-19 VACCINE (3 - [facility] Test 00:00:00 Booster for Pfizer Medical C enter series) [code = COVID-19 VACCINE (3 - Booster for Pfizer series)] Future Scheduled 2021-05-16 COVID-19 VACCINE (3 - [facility] Test 00:00:00 Booster for Pfizer Medical C enter series) [code = COVID-19 VACCINE (3 - Booster for Pfizer series)] Future Scheduled 2021-05-16 COVID-19 VACCINE (3 - [facility] Test 00:00:00 Booster for Pfizer Medical C enter series) [code = COVID-19 VACCINE (3 - Booster for Pfizer series)] Future Scheduled 2021-05-16 COVID-19 VACCINE (3 - [facility] Test 00:00:00 Booster for Pfizer Medical C enter series) [code = COVID-19 VACCINE (3 - Booster for Pfizer series)] Diagnostic Test 2021-02-26 XR HAND 3+ VW RIGHT Expected: Unive rsity of Pending 00:00:00 [code = 23308] 02/26/2021, [place] [facility] Expires: Branch 02/26/2022 Future Scheduled 2007 Hepatitis C screening Un [facility] of Test 00:00:00 (procedure) [code = [facility] dical 807570625] Branch Future Scheduled 2007 Hepatitis C screening [facility] of Test 00:00:00 (procedure) [code = [facility] isaiah 490179881] Branch Future Scheduled 2007 Hepatitis C screening Un iversity of Test 00:00:00 (procedure) [code = Katey colon 284839229] Branch Future Scheduled 2007 Hepatitis C screening Un iversity of Test 00:00:00 (procedure) [code = Katey colon 714366172] Branch Future Scheduled 2007 HE[facility]ITIS C [facility]CRE[facility] Test [facility] [code = HEPATITIS [facility] Medical Center SCREENING] Future Scheduled 2007 HE[facility]ITIS C [facility] Test 00:00:00 [code = HEPATITIS C Medical Center SCREENING] Future Scheduled 2007 HE[facility]ITIS C [facility] Test 00:00:00 [code = HEPATITIS C Medical Center SCREENING] Future Scheduled 2007 HEPATITIS C [facility] Test 00:00:00 [code = HEPATITIS C Medical Center SCREENING] Future Scheduled 2007 HE[facility]ITIS C [facility] Test 00:00:00 [code = HEPATITIS C Medical Center SCREENING] Future Scheduled 2001 Depression screening Uni versity of Test 00:00:00 (procedure) [code = [facility] isaiah 240980296] Branch Future Scheduled [address] [facility] Test 00:00:00 Counseling and Medical Cente r Screening (12+) [code = Tobacco Cessation Counseling and Screening (12+)] Future Scheduled [address] [facility] Test 00:00:00 Counseling and Medical Cente r Screening (12+) [code = Tobacco Cessation Counseling and Screening (12+)] Future Scheduled [address] [facility] Test 00:00:00 Counseling and Medical Cente r Screening (12+) [code = Tobacco Cessation Counseling and Screening (12+)] Future Scheduled [address] [facility] Test 00:00:00 Counseling and Medical Cente r Screening (12+) [code = Tobacco Cessation Counseling and Screening (12+)] Future Scheduled 1995 PNEUMOCOCCAL 0-64 Univer sity of Test 00:00:00 YEARS COMBINED SERIES [facility] (1 of - PPSV23) Branch [code = PNEUMOCOCCAL 0-64 YEARS COMBINED SERIES (1 of - PPSV23)] Future Scheduled 1995 PNEUMOCOCCAL 0-64 Univer sity of Test 00:00:00 YEARS COMBINED SERIES [facility] (1 of 1 - PPSV23) Branch [code = PNEUMOCOCCAL 0-64 YEARS COMBINED SERIES (1 of 1 - PPSV23)] Future Scheduled 1995 PNEUMOCOCCAL 0-64 Univer sity of Test 00:00:00 YEARS COMBINED SERIES [facility] (1 of 1 - PPSV23) Branch [code = PNEUMOCOCCAL 0-64 YEARS COMBINED SERIES (1 of 1 - PPSV23)] Future Scheduled 1995 PNEUMOCOCCAL 0-64 Univer sity of Test 00:00:00 YEARS COMBINED SERIES [facility] (1 of 1 - PPSV23) Branch [code = PNEUMOCOCCAL 0-64 YEARS COMBINED SERIES (1 of 1 - PPSV23)] Future Scheduled HIV SCREENING [code = [facility] Test HIV SCREENING] of Medicine Future Scheduled FLU VACCINE > 6 MONTHS [facility] Test [code = FLU VACCINE > of Med icine 6 MONTHS] Future Scheduled TETANUS SHOT (ADULT) [facility] Test [code = TETANUS SHOT of Medi cine (ADULT)] Future Scheduled HIV SCREENING [code = [employer] [facility] HIV SCREENING] of Medicine Future Scheduled FLU VACCINE > 6 MONTHS [facility] [code = FLU VACCINE > of Med icine 6 MONTHS] Future Scheduled TETANUS SHOT (ADULT) [facility] Test [code = TETANUS SHOT of Medi cine (ADULT)] Future Scheduled Hepatitis C screening [facility] Test (procedure) [code = of Medic ine 451430130] Future Scheduled Human immunodeficiency [facility] Test virus screening of Medicine (procedure) [code = 441403843] Future Scheduled FLU VACCINE > 6 MONTHS [facility] Test [code = FLU VACCINE > of Med icine 6 MONTHS] Future Scheduled TETANUS SHOT (ADULT) [facility] Test [code = TETANUS SHOT of Medi cine (ADULT)] Future Scheduled ALLERGEN PROFILE, Ordered: [facility] Test LATEX PLUS [code = 08/15/2019 of Medici ne NOCPT] Future Scheduled IGE [code = 09350-3] Ordered: [facility] Test 08/15/2019 of Medicine Future Scheduled ALLERGENS, ZONE 6 Ordered: [facility] Test [code = NOCPT] 08/15/2019 of Medicine Future Scheduled BEE VENOM PANEL [code Ordered: [facility] Test = NOCPT] 08/15/2019 of Medicine Future Scheduled HYMENOPTERA PROFILE 2 [facility] = [facility]] 08/15/2019 of Medicine Future Scheduled HIV SCREENING [code = [employer] [facility] HIV SCREENING] of Medicine Future Scheduled FLU VACCINE > 6 MONTHS [facility] Test [code = FLU VACCINE > of Med icine 6 MONTHS] Future Scheduled TETANUS SHOT (ADULT) [facility] Test [code = TETANUS SHOT of Medi cine (ADULT)] Encounters Start End Encounter Admission Attending Care Care Encounter Source Date/Time Date/Time Type Type Clinicians Facility Department ID 2022-07-05 Inpatient MONICA [facility] SOR [id number] Univers 13:07:34 [facility] 2021-08-23 Emergency [facility] [id number] Univers 08:01:55 [facility] 2021-03-09 Inpatient HCAPM HCAPM [id number] [facility] 10:12:52 13 [facility] 2023-01-12 2023-01-12 Outpatient JENNIFER RIOS [facility] [id number] [facility] 00:00:00 00:00:00 Adelina Medicin e 2023-01-11 2023-01-11 Outpatient Idris MONTANA [facility] [id number] Univers 16:00:00 16:00:00 KENNEY [facility] 2022-12-15 2022-12-15 Outpatient Idris MONTANA [facility] [id number] Univers 11:00:00 11:00:00 KENNEY [facility] 2022-11-26 2022-11-26 Outpatient Idris MORALES [facility] [id number] Univers 15:24:25 23:59:00 , MIRACLE acosta [facility] 2022-11-26 2022-11-26 Machinist/Machine Builder Lab, Ang - Db [facility] 1.2.840.1 [id number] Univers 15:45:00 16:00:00 Visit Miracle Morales [facility] 350.1 .13.10 [facility] 4.2.7.2.686 Jet as LINK?BLEA [id number] [address] MEDICAL OFFICE BUILDING 2022-11-26 2022-11-26 Office Vidalia [facility] 1.2.840.114 [id number] Univers 15:00:00 15:20:50 Visit , Miracle [facility] 350.1.13.10 ity of [place] 4.2.7.2.686 Jet as LINK?BLEA [id number] [place] isaiah RANDY 044 [facility] OFFICE [facility] 2022-11-26 2022-11-26 Letter Vidalia [facility] 1.2.840.114 [id number] Univers 00:00:00 00:00:00 (Out) , Miracle [facility] 350.1.13.10 ity of [place] 4.2.7.2.686 Jet as LINK?BLEA [id number] [address] OFFICE [facility] 2022-11-25 2022-11-25 Outpatient R ELIZABETH [facility] [id number] Univers 15:15:00 15:15:00 ELAINE waterman [facility] 2022-11-24 2022-11-24 Outpatient R KASSIDY [facility] [id number] Univers 10:30:00 10:30:00 , MIRACLE valles [facility] 2022-11-23 2022-11-23 Outpatient R ELIZABETH [facility] [id number] Univers 15:15:00 16:11:39 ELAINE reena [facility] 2022-11-23 2022-11-23 Ancillary Génesis Youngblood [facility] 1.2. 840.114 [id number] Univers 15:15:00 16:00:00 Visit Elaine Johnson [place] 350.1.13.10 ity [facility] 4.2.7.2.686 [place] [facility] [phone] [facility] [facility] [address] [facility] 2022-11-22 2022-11-22 Emergency X EBRAHIM, [facility] ERT [id number] Univers 15:28:00 17:00:00 ESTELA [facility] 2022-11-22 2022-11-22 [facility] 1.2.840.114 [id number] Univers 15:28:00 17:00:00 Estela [facility] 350.1.13.10 i ty of [place].7.2.686 [place] [phone] [facility] [address] 2022-11-19 2022-11-19 Outpatient R KING LORETA, [facility] [id number] Univers 14:21:28 23:59:00 KENNEY ity [facility] 2022-11-19 2022-11-19 Hospital Kenney Ling [facility] 1.2.840.114 [id number] Univers 14:21:28 23:59:00 Encounter C HEALTH 350.1.13.10 ity of [place] 4.2.7.2.686 Jet as LINK?BLEA [id number] [place] dical RANDY [address] MEDICAL OFFICE BUILDING 2022-11-19 2022-11-19 Urgent Kenney Ling [facility] 1.2.840.114 [id number] Univers 14:20:00 14:40:00 Care Unknown, Attending HEALTH 350.1.13.10 ity of [place] 4.2.7.2.686 Jet as LINK?BLEA [phone] [place] dical ZEE 370 [facility] OFFICE [facility] 2022-11-17 2022-11-17 Ancillary Ramon Gomez [facility] 1.2.840. 114 [id number] Univers 13:45:00 14:30:00 Visit Elaine Johnson 350.1.13.10 ity of [place].2.7.2.686 [place] [phone] [place] dical NAL [address] [facility] 2022-11-04 2022-11-04 Ancillary Ramon Gomez [facility] 1.2.840. 114 [id number] Univers 16:00:00 16:45:00 Visit Elaine Johnson 350.1.13.10 ity of [place] 4.2.7.2.686 [place] [phone] [place] dical NAL [address] [facility] 2022-11-01 2022-11-01 Ancillary Ramon Gomez [facility] 1.2.840. 114 [id number] Univers 15:15:00 16:00:00 Visit Elaine Johnson 350.1.13.10 ity of [place] 4.2.7.2.686 [place] [phone] T[place] dical NAL [address] [facility] 2022-10-28 2022-10-28 Ancillary Génesis Youngblood [facility] 1.2. 840.114 [id number] Univers 15:15:00 15:36:21 Visit Elaine Johnson 350.1.13.10 ity of [place] 4.2.7.2.686 [place] [phone] Tx dical NAL [address] [facility] 2022-10-25 2022-10-25 Ancillary Ramon Gomez [facility] 1.2.840. 114 [id number] Univers 16:00:00 16:16:21 Visit Elizabeth Elaine [place] 350.1.13.10 ity of [place] 4.2.7.2.686 [place] [id number] Tx dicme NAL [address] [facility] 2022-10-25 2022-10-25 Outpatient R LISA [facility] [id number] Univers 14:30:00 14:30:00 CHECO [facility] 2022-10-22 2022-10-22 [facility] [id number] Univers 11:00:00 11:53:26 ELAINE [facility] 2022-10-22 2022-10-22 Ancillary Mala Davison [facility] 1.2.84 0.114 [id number] Univers 11:00:00 11:53:26 Visit Elaine Johnson 350.1.13.10 ity of [place] 4.2.7.2.686 [place] PROFESS[place] [id number] [address] 2022-10-21 2022-10-21 Outpatient SFA JAI [id number] Justo 14:39:53 14:39:53 1229 F Michael 2022-10-20 2022-10-20 Outpatient R MONICA [facility] [id number] Univers 13:10:00 13:31:54 MICHAEL waterman [facility] 2022-10-20 2022-10-20 Office Monica [facility] 1.2.840.114 [id number] Univers 13:10:00 13:31:54 Visit W SPECIALTY 350.1.13.10 ity of CARE 4.2.7.2.686 [place] AT [id number] Tx isaiah PUCKETT [address] [facility] 2022-10-13 2022-10-13 Outpatient SFA [facility] [id number] Justo 11:32:41 11:32:41 1221 F Michael 2022-10-12 2022-10-12 Office [facility] 1.2.840.114 [id number] Univers 10:15:00 10:30:00 Visit [place] 62696.1.13.10 it y of [place] [facility] 4.2.7.2.686 Jet as LINK?BLEA [id number] Tx isaiah KOCH 044 [facility] OFFICE [facility] 2022-10-12 2022-10-12 Outpatient R [facility] [id number] Univers 10:15:00 10:15:00 [facility] 2022-10-09 2022-10-09 Urgent Kenney Ling [facility] 1..840.114 [id number] Univers 11:40:00 12:00:00 Care Unknown, [facility] 350.1.13.10 ity of [place] 4.2.7.2.686 Jet as LINK?BLEA [id number] Tx bessygeorgie KOCH 370 [facility] OFFICE [facility] 2022-10-09 2022-10-09 Outpatient R FRANCOISE [facility] [id number] Univers 11:40:00 11:40:00 ESTELA [facility] 2022-09-21 2022-09-21 Outpatient R RUBÉN [facility] [id number] Univers 13:15:00 13:22:23 [facility] 2022-09-21 2022-09-21 [facility] 1.2.840.114 [id number] Univers 13:15:00 13:22:23 Visit [place] 62696.1.13.10 it y of [place] [facility] 4.2.7.2.686 Jet as LINK?BLEA [phone] Tx bessygeorgie KOCH [address] [place] [address] OFFICE [facility] 2022-09-15 2022-09-15 Outpatient [facility] [id number] Univers 20:30:00 20:57:55 SHANTE acostareena [facility] 2022-09-15 2022-09-15 Urgent Shante Kaye [facility] 1.2.840.11 [id number] Univers 20:30:00 20:57:55 Care Unknown, Attending HEALTH 350.1.13.10 ity of [facility] 4.2.7.2.686 Jet as LINK?BLEA [phone] Tx bessyal ZEE [address] [place] [address] MEDICAL OFFICE BUILDING 2022-09-15 2022-09-15 Outpatient SFA [facility] [id number] Justo 14:53:26 14:53:26 1123 F [place] 2022-09-08 2022-09-08 Hospital [facility] 1.2.840.114 [id number] Univers 11:25:00 23:59:00 Encounter Michael Echevarria SPECIALTY 350.1.13.10 ity of C[place] 4.2.7.2.686 [place] CENTER AT [phone] Tx isaiah PUCKETT 8[address] [facility] 2022-09-08 2022-09-08 Outpatient [facility] [id number] Univers 10:00:00 11:55:01 MICHAEL waterman [facility] 2022-09-08 2022-09-08 Office [facility] 1.2.840.114 [id number] Univers 10:00:00 11:55:01 Visit Michael Echevarria SPECIALTY 350.1.13.10 ity of [place] 4.2.7.2.686 [place] C[place] AT [phone] Tx isaiah ANTHONYReena [address] [place] [address] 2022-09-08 2022-09-08 [facility] [id number] Univers 10:00:00 10:00:00 MICHAEL waterman [facility] 2022-08-30 2022-08-30 [facility] 1.2.711.223 [id number] Univers 00:00:00 00:00:00 Michael Echevarria SPECIALTY 350.1.13.10 ity of [place] 4[place]2.7.2.686 [place] AT [phone] Tx isaiah PUCKETT [address] [facility] 2022-08-30 2022-08-30 Telephone [facility] 1.2.840.114 [id number] Univers 00:00:00 00:00:00 [facility] 350.1.13.10 it y of [place] 4.2.7.2.686 Jet as LINK?BLEA [id number] Tx isaiah KOCH [address] [place] [address] MEDICAL OFFICE [facility] 2022-08-27 2022-08-27 Orders Doctor GINA 1.2.840.114 [id number] Univers 00:00:00 00:00:00 Only Unassigned, HAILY 350.1.13.10 ity of [place] [facility] 4.2.7.2.686 Jet as [phone] [facility] [address] [place] 2022-08-25 2022-08-25 Telephone [facility] 1.2.840.114 [id number] Univers 00:00:00 00:00:00 [facility] 350.1.13.10 it y of [place] [facility] 4.2.7.2.686 Jet as LINK?BLEA [phone] Tx isaiah KOCH [address] [place] [address] OFFICE [facility] 2022-08-25 2022-08-25 Telephone [facility] 1.2.936.018 [id number] Univers 00:00:00 00:00:00 [place] [facility] 350.1.13.10 ity of [place] 4.2.7.2.686 Jet as LINK?BLEA [id number] Tx isaiah KOCH [address] [place] [address] OFFICE [facility] 2022-08-16 2022-08-16 Telephone [facility] 1.2.471.929 [id number] Univers 00:00:00 00:00:00 W SPECIALTY 350.1.13.10 it[place]2.[place].2.686 [place] AT [phone] Tx isaiah PUCKETT [address] [facility] 2022-08-15 2022-08-15 Nurse GINA Wong 1.2.840.114 [id number] Univers 00:00:00 00:00:00 Triage Ro HAILY 350.1.13.10 it y of HOSPITAL 4.2.7.2.686 Jet as [id number] [address] 2022-08-15 2022-08-15 Telephone [facility] 1.2.870.098 [id number] Univers 00:00:00 00:00:00 W SPECIALTY 350.1.13.10 ity of [place] 4[place]2.[place].2.686 [place] AT [id number] Tx isaiah PUCKETT [address] [facility] 2022-08-11 2022-08-11 Refill [facility] 1.2.840.114 [id number] Univers 00:00:00 00:00:00 W SPECIALTY 350.1.13.10 ity of [place] 4.2.7.2.686 [place] AT [id number] Tx isaiah PUCKETT [address] [place] [address] 2022-08-10 2022-08-10 Office [facility] 1.2.840.114 [id number] Univers 14:30:00 15:00:00 Visit Kenney [facility] 350.1.13.10 it y of [place] 4.2.7.2.686 Jet as LINK?BLEA [phone] Tx isaiah KOCH [address] [place] [address] MEDICAL OFFICE BUILDING 2022-08-10 2022-08-10 Outpatient R RUBÉN [facility] [id number] Univers 14:30:00 14:30:00 KENNEY waterman [facility] 2022-07-26 2022-07-30 Outpatient Idris [facility] SOR [id number] Univers 06:17:00 20:32:00 MICHAEL waterman [facility] 2022-07-26 2022-07-30 [facility] 1.2.840.114 [id number] Univers 06:17:00 20:32:00 Encounter [facility] 350.1.13.10 ity of [place] 4.2.7.2.686 [place] [facility] [phone] [address] ([facility]) 2022-07-30 2022-07-30 Outpatient Idris JOHNSON [facility] [id number] Univers 09:30:00 09:30:00 ELAINE waterman [facility] 2022-07-30 2022-07-30 Outpatient [facility] [id number] Univers 09:30:00 09:30:00 ELAINE itreena [facility] 2022-07-26 2022-07-26 Surgery Monica [facility] 1.2.840.114 [id number] Univers 09:10:00 13:05:00 Michael Echevarria SPECIALTY 350.1.13.10 it[place] of [place]2.[place].2.686 [place] AT [phone] Tx isaiah PUCKETT 0[address] [facility] 2022-07-26 2022-07-26 Orders Doctor GINA 1.2.840.114 [id number] Univers 00:00:00 00:00:00 Only Unassigned, HAILY 350.1.13.10 ity of [place] [facility] 4.2.7.2.686 Jet as [phone] [address] 2022-07-23 2022-07-23 Laboratory Only, Lcc Test [facility] 1.2.840. 114 [id number] Univers 10:15:00 10:30:00 Only Michael Anderson SPECIALTY 350.1.13.10 it[place] of [place].2.686 [place] AT [id number] Tx isaiah PUCKETT [address] [facility] 2022-07-23 2022-07-23 Outpatient R MONICA [facility] [id number] Univers 10:15:00 10:15:00 [facility] 2022-07-12 2022-07-12 Outpatient R ALYCIA [facility] [id number] Univers 15:40:00 15:48:08 FARIBA [facility] 2022-07-12 2022-07-12 Office [facility] 1.2.840.114 [id number] Univers 15:40:00 15:48:08 Visit [facility] 350.1.13.10 ity of [place] 4.2.7.2.686 Jet as LINK?BLEA [id number] Tx isaiah KOCH [address] MEDICAL OFFICE BUILDING 2022-07-12 2022-07-12 Orders Doctor FUENTES 1.2.840.114 [id number] Univers 00:00:00 00:00:00 Only Unassigned, HAILY 350.1.13.10 ity of [place] [facility] 4.2.7.2.686 Jet as [phone] [facility] [address] 2022-07-06 2022-07-06 Office JENNIFER RIOS [facility] 1.2.840.114 [id number] [facility] 14:52:01 15:27:52 Visit AMBULATOR 350.1.13.21 College Y 0.2.7.2.686 of [phone] [facility] 800 e 2022-07-06 2022-07-06 Telephone Atif [facility] [id number] Univers 00:00:00 00:00:00 Lexie Azevedo [facility] 350.1.13.10 i ty of [place] 4.2.7.2.686 Jet as LINK?BLEA [phone] [place] dical [place] [address] [place] MEDICAL OFFICE [facility] 2022-07-02 2022-07-02 [facility]patient [facility] [id number] Univers 10:15:00 11:34:55 ELAINE waterman [facility] 2022-07-02 2022-07-02 Ancillary Mirna Fowler [facility] 1 .2.840.114 [id number] Univers 10:15:00 11:34:55 Visit Elaine Johnson 350.1.13.10 ity [place]2.[place] [phone] [place] dical NAL [address] [facility] 2022-07-02 2022-07-02 [facility] [id number] Univers 11:00:00 11:00:00 ELAINE waterman [facility] 2022-07-02 2022-07-02 Machinist/Machine Builder [place], [facility] 1.2.8 40.114 [id number] Univers 10:15:00 10:30:00 Visit Michael Anderson 350.1.13.10 ity of Lexie Srivastava 4.2.7.2.686 [place] PROFESSIO [phone] [place] dical NAL 353 [facility] 2022-07-02 2022-07-02 Outpatient [facility] [id number] Univers 10:15:00 10:15:00 [facility] 2022-07-02 2022-07-02 Outpatient R [facility] [id number] Univers 10:15:00 10:15:00 LEXIE reena [facility] [place] 2022-06-29 2022-06-29 Outpatient R [facility] [id number] Univers 16:20:00 17:30:16 [facility] 2022-06-29 2022-06-29 Office [facility] 1.2.840.114 [id number] Univers 16:20:00 17:30:16 Visit [facility] 350.1.13.10 [place] of [place] 4.2.7.2.686 Jet as LINK?BLEA [id number] [address] OFFICE [facility] 2022-06-29 2022-06-29 Outpatient Idris TONG [facility] [id number] Univers 16:20:00 17:30:16 [facility] 2022-06-27 2022-06-27 Telephone [facility] 1.2.161.901 [id number] Univers 00:00:00 00:00:00 [facility] HEALTH 350.1.13.10 i [place] 4.2.7.2.686 Jet as LINK?BLEA [id number] [address] OFFICE [facility] 2022-06-25 2022-06-25 Outpatient Idris SRIVASTAVA [facility] [id number] Univers 09:00:00 09:00:00 LEXIE reena [facility] [place] 2022-06-25 2022-06-25 Machinist/Machine Builder Lab, Ang - Db [facility] 1.2.840.1 14 [id number] Univers 07:45:00 08:00:00 Visit Kenney Montana [facility] 350.1.13 .10 [place] of [place] 4.2.7.2.686 Jet as LINK?BLEA [id number] [facility] [address] [facility] OFFICE [facility] 2022-06-25 2022-06-25 Outpatient Idris MONTANA [facility] [id number] Univers 07:45:00 07:45:00 KENNEY waterman [facility] [place] 2022-06-25 2022-06-25 Telephone [facility] 1.2.840.114 [id number] Univers 00:00:00 00:00:00 Elaine L HEALTH 350.1.13.10 it y of [facility] 4.2.7.2.686 Jet as LINK?BLEA [phone] Me isaiah KOCH [facility] 2022-06-25 2022-06-25 Telephone [facility]RE[facility] 1.2.397.674 [id number] Univers 00:00:00 00:00:00 Michael Echevarria SPECIALTY 350.1.13.10 ity of [facility] 4.2.7.2.[place] AT [phone] Me isaiah PUCKETT [address] [facility] 2022-06-25 2022-06-25 Telephone [facility] 1.2.890.560 [id number] Univers 00:00:00 00:00:00 Lexie A HEALTH 350.1.13.10 i ty of [facility] 4.2.7.2.686 Jet as LINK?BLEA [id number] Me isaiah KOCH 044 [facility] 2022-06-25 2022-06-25 Telephone [facility]RE[facility] 1.2.840.114 [id number] Univers 00:00:00 00:00:00 Elaine L HEALTH 350.1.13.10 it y of [place] 4.2.7.2.686 Jet as LINK?BLEA [id number] Me isaiah KOCH 198 [facility] 2022-06-25 2022-06-25 Orders Doctor FUENTES 1.2.840.114 [id number] Univers 00:00:00 00:00:00 Only Unassigned, HAILY 350.1.13.10 ity of [place] [facility] 4.2.7.2.686 Jet as [id number] [address] 2022-06-24 2022-06-24 Outpatient Idris ANDERSON [facility] [id number] Univers 08:59:13 23:59:00 MICHAEL waterman [facility] [place] 2022-06-24 2022-06-24 Outpatient Idris SRIVASTAVA [facility] [id number] Univers 08:30:00 08:54:30 LEXIE waterman [facility] [place] 2022-06-24 2022-06-24 Office [facility] 1.2.840.114 [id number] Univers 08:30:00 08:54:30 Visit Lexie Azevedo [facility] 350.1.13.10 i ty of [place] 4.2.7.2.686 Jet as LINK?BLEA [id number] Tx bessy[address] MEDICAL OFFICE [facility] 2022-06-23 2022-06-23 Outpatient Idris [facility] [id number] Univers 09:30:00 11:27:12 MICHAEL waterman [facility] [place] 2022-06-23 2022-06-23 Office [facility]RE[facility] 1.2.840.114 [id number] Univers 09:30:00 11:27:12 Visit Michael Echevarria SPECIALTY 350.1.13.10 ity of C[place] 4.2.7.2.[place] AT [id number] Tx isaiah PUCKETT [address] [place] [address] 2022-06-23 2022-06-23 Outpatient Idris ANDERSON [facility] [id number] Univers 09:30:00 11:27:12 MICHAEL waterman [facility] [place] 2022-06-23 2022-06-23 Office [facility]RE[facility] 1.2.840.114 [id number] Univers 09:30:00 11:27:12 Visit Michael Echevarria SPECIALTY 350.1.13.10 ity of C[place] 4.2.7.2.686 [place] [phone] Tx isaiah PUCKETT [address] [facility] 2022-06-22 2022-06-22 Outpatient Idris ISIDRO [facility] [id number] Univers 13:30:00 13:30:00 BHAVIN waterman [facility] [place] 2022-06-15 2022-06-15 Office RubénREHABILITATION [facility] 1.2.840.114 [id number] Univers 10:00:00 10:15:00 Visit [facility] 350.1.13.10 it y of [place] ANNE-MARIETABITHA 4.2.7.2.686 Jet as LINK?BLEA [id number] Tx dical [address] OFFICE [facility] 2022-06-15 2022-06-15 Outpatient R RUBÉN [facility] [id number] Univers 10:00:00 10:12:01 KENNEY waterman [facility] [place] 2022-06-15 2022-06-15 Outpatient R RUBÉN [facility] [id number] Univers 10:00:00 10:00:00 KENNEY [facility] 2022-06-12 2022-06-12 Nurse Nurse, [facility] 1.2.840.114 [id number] Univers 15:50:00 15:50:00 Visit Terry [facility] 350.1.13.10 itreena [facility] 4.2.7.2.686 Jet as LINK?BLEA [id number] Tx isaiah RANDY [address] [facility] OFFICE [facility] 2022-06-12 2022-06-12 Outpatient R [facility] [id number] Univers 15:50:00 15:38:18 GINA reena [facility] [place] 2022-06-12 2022-06-12 Outpatient R ADRIANA [facility] [id number] Univers 15:20:00 15:20:00 GENOVEVA reena [facility] [place] 2022-06-07 2022-06-07 Outpatient R [facility] [id number] Univers 16:14:49 23:59:00 FARIBA reena [facility] [place] 2022-06-07 2022-06-07 [facility] 1.2.840.114 [id number] Univers 16:14:49 23:59:00 Encounter Fariba [place] [facility].1.13.10 [facility] [place].2.[place] [phone] [facility] [address] [place] [address] 2022-06-07 2022-06-07 Outpatient R [facility] [id number] Univers 14:40:00 15:34:09 [facility] 2022-06-07 2022-06-07 Office [facility] 1..840.114 [id number] Univers 14:40:00 15:34:09 Visit [facility] 350.1.13.10 [place] 4.2.7.2.686 Jet as LINK?BLEA [id number] [address] MEDICAL OFFICE [facility] 2022-06-07 2022-06-07 Orders Doctor GINA 1.2.840.114 [id number] Univers 00:00:00 00:00:00 Only Unassigned, HAILY 350.1.13.10 ity of [place] [facility] 4.2.7.2.686 Jet as [phone] [facility] [address] 2022-05-31 2022-05-31 [facility] 1.2.840.114 [id number] Univers 00:00:00 00:00:00 [facility] 350.1.13.10 it y of [place] 4.2.7.2.686 Jet as LINK?BLEA [id number] [address] OFFICE [facility] 2022-05-27 2022-05-27 Outpatient Idris SRIVASTAVA [facility] [id number] Univers 13:00:00 13:53:14 LEXIE ity [facility] [place] 2022-05-27 2022-05-27 Office [facility] 1.2.840.114 [id number] Univers 13:00:00 13:53:14 Visit Lexie [facility] 350.1.13.10 i ty [place] 4.2.7.2.686 Jet as LINK?BLEA [id number] [address] OFFICE [facility] 2022-04-29 2022-04-29 Outpatient Idris MACIAS [facility] [id number] Univers 12:24:28 23:59:00 WESLEY itreena of [facility] 2022-04-29 2022-04-29 Hospital ARCHANA Macias 1.2.840.114 [id number] Univers 12:24:28 23:59:00 Encounter Wesley JOHANSEN 350.1.13.10 ity of [facility] 4.2.7.2.686 Jet as [phone] [facility] [address] 2022-04-29 2022-04-29 Ancillary Room, Kay-Occup Therapy Tub ARIELLE 1.2.840.114 [id number] Univers 09:00:00 10:00:00 Visit Checo Caballero HAILY 350.1.13.10 ity of [facility] 4.2.7.2.686 Jet as [id number] [address] 2022-04-29 2022-04-29 Outpatient R ZAY [facility] [id number] Univers 09:45:00 09:45:00 ATTENDING reena [facility] [place] 2022-04-29 2022-04-29 Outpatient R LISA [facility] [id number] Univers 09:00:00 09:00:00 CHECO itreena [facility] [place] 2022-04-27 2022-04-27 Urgent [facility] 1.2.840.114 [id number] Univers 19:20:00 19:40:00 Care [facility] 350.1.13.10 i ty [place] 4.2.7.2.686 Jet as LINK?BLEA [id number] [address] MEDICAL OFFICE [facility] 2022-04-27 2022-04-27 Outpatient R [facility] [id number] Univers 19:20:00 19:20:00 CHELSEA davereena o f [facility] 2022-04-13 2022-04-13 [facility] 1.2.840.114 [id number] Univers 15:30:00 15:45:00 Visit [facility] 350.1.13.10 it y of [place] 4.2.7.2.686 Jet as LINK?BLEA [id number] [facility] [address] MEDICAL OFFICE [facility] 2022-04-13 2022-04-13 Out[facility] [id number] Univers 15:30:00 15:30:00 KENNEY [facility] 2022-03-10 2022-03-10 Urgent Provider, [facility] 1.2.840.114 [id number] Univers 20:40:00 21:00:00 Care Song, Genoveva HEALTH 350.1.13.10 [place] 4.2.7.2.686 Jet as LINK?BLEA [id number] [address] MEDICAL OFFICE BUILDING 2022-03-10 2022-03-10 Outpatient R ADRIANA [facility] [id number] Univers 20:40:00 20:36:40 GENOVEVA guevara [facility] [place] 2022-03-04 2022-03-04 Outpatient R GARY [facility] [id number] Univers 11:00:00 11:41:13 MAGDIEL itreena [facility] [place] 2022-03-04 2022-03-04 Office [facility] 1.2.840.114 [id number] Univers 11:00:00 11:41:13 [facility] 350.1.13.10 it y of [place] 4.2.7.2.686 Jet as LINK?BLEA [id number] Tx bessygeorgie [address] OFFICE [facility] 2022-03-04 2022-03-04 Outpatient R GARY [facility] [id number] Univers 11:00:00 11:41:13 MAGDIELLd waterman [facility] [place] 2022-03-04 2022-03-04 Orders Doctor FUENTES 1.2.840.114 [id number] Univers 00:00:00 00:00:00 Only Unassigned, HAILY 350.1.13.10 ity of [place] [facility] 4.2.7.2.686 Jet as [phone] [address] 2022-02-03 2022-02-03 Telephone RubénRE[facility] 1.2.840.114 [id number] Univers 00:00:00 00:00:00 [facility] HEALTH 350.1.13.10 it y of [place] 4.2.7.2.686 Jet as LINK?BLEA [phone] Tx bessygeorgie KOCH [address] [place] [address] MEDICAL OFFICE [facility] 2022-02-02 2022-02-02 Office Jennifer Rios 1.2.840.114 [id number] [facility] 15:20:00 16:09:13 Visit H AMBULATOR 350.1.13.21 College Y 0.2.7.2.686 of [phone] [facility] 800 e 2022-02-02 2022-02-02 Orders Doctor FUENTES 1.2.840.114 [id number] Univers 00:00:00 00:00:00 Only Unassigned, HAILY 350.1.13.10 [facility] 4.2.7.2.686 Jet as [id number] [address] 2022-01-14 2022-01-14 Outpatient Idris [facility] [id number] Univers 16:45:00 16:45:00 ELAINE waterman [facility] [place] 2022-01-14 2022-01-14 Outpatient Idris [facility] [id number] Univers 14:30:00 15:56:32 ELAINE waterman [facility] [place] 2022-01-14 2022-01-14 Ancillary Mala Davison [facility] 1.2.84 0.114 [id number] Univers 14:30:00 15:15:00 Visit Elaine Johnson Bridgett ANNE-MARIETABITHA 350.1.13.10 ity of [place].2.[place].2.686 [place] [id number] Tx isaiah NAVA [address] [facility] 2022-01-14 2022-01-14 Outpatient Idris [facility] [id number] Univers 14:30:00 14:30:00 ELAINE [facility] 2022-01-13 2022-01-13 Office [facility] 1.2.840.114 [id number] Univers 15:00:00 15:15:00 Visit [facility] 350.1.13.10 it y of [place] 4.2.7.2.686 Jet as LINK?BLEA [phone] Tx dicgeorgie GONZALEZEY 044 [facility] OFFICE [facility] 2022-01-13 2022-01-13 Outpatient Idris MONTANA [facility] [id number] Univers 15:00:00 15:01:38 KENNEY [facility] 2022-01-13 2022-01-13 Outpatient Idris MONTANA [facility] [id number] Univers 15:00:00 15:00:00 KENNEY [facility] 2022-01-04 2022-01-04 Outpatient Idris LECHUGA [facility] [id number] Univers 18:20:00 18:24:03 GENOVEVA reena [facility] [place] 2021-12-31 2021-12-31 Outpatient R LIBRADO JOHNSON [facility] [id number] Univers 08:00:00 09:05:12 ELAINE ity of [facility] 2021-12-31 2021-12-31 Ancillary Ok Mcfadden [facility] 1.2. 840.114 [id number] Univers 08:00:00 09:05:12 Visit Elaine Johnson 350.1.13.10 ity of [place].2.7.2.[place] [phone] Tx dical NAL [address] [facility] 2021-12-29 2021-12-29 Ancillary Ok Mcfadden [facility] 1.2. 840.114 [id number] Univers 08:45:00 09:30:00 Visit Elaine Johnson 350.1.13.10 ity of [facility] 4.2.7.2.686 [place] [phone] Tx dical NAL [address] [facility] 2021-12-25 2021-12-25 Orders Doctor GINA 1.2.840.114 [id number] Univers 00:00:00 00:00:00 Only Unassigned, HAILY 350.1.13.10 [facility] 4.2.7.2.686 Jet as [phone] [address] 2021-12-24 2021-12-24 Ancillary Ok Mcfadedn [facility] 1.2. 840.114 [id number] Univers 08:00:00 08:45:00 Visit Elaine Johnson 350.1.13.10 ity of [facility] 4.2.7.2.686 [place] [id number] Tx dical NAL [address] [facility] 2021-12-22 2021-12-22 Ancillary Génesis Youngblood [facility] 1.2. 840.114 [id number] Univers 08:00:00 08:45:00 Visit Elaine Johnson 350.1.13.10 ity of [facility] 4.2.7.2.[place] [phone] Tx dical NAL [address] [facility] 2021-12-17 2021-12-17 Outpatient R [facility] [id number] Univers 08:45:00 09:45:36 ELAINE ity [facility] [place] 2021-12-17 2021-12-17 Ancillary Ok Mcfadden [facility] 1.2. 840.114 [id number] Univers 08:45:00 09:45:36 Visit Elaine Johnson 350.1.13.10 ity of [place] 4.2.7.2.686 [place] [phone] Tx dical NAL [address] [facility] 2021-12-15 2021-12-15 Ancillary Génesis Youngblood [facility] 1.2. 840.114 [id number] Univers 08:45:00 10:39:24 Visit Elaine Johnson 350.1.13.10 ity of [place] 4.2.7.2.686 [place] [id number] Tx dical NAL [address] [facility] 2021-12-15 2021-12-15 Outpatient R [facility] [id number] Univers 08:45:00 10:39:24 ELAINESOLEDAD waterman [facility] [place] 2021-12-15 2021-12-15 Outpatient R [facility] [id number] Univers 08:45:00 08:45:00 [facility] 2021-12-15 2021-12-15 Orders Doctor FUENTES 1.2.840.114 [id number] Univers 00:00:00 00:00:00 Only Unassigned, HAILY 350.1.13.10 ity of [place] [facility] 4.2.7.2.686 Jet as [id number] [address] 2021-12-10 2021-12-10 Ancillary Génesis Youngblood [facility] 1.2. 840.114 [id number] Univers 09:30:00 10:15:00 Visit Elaine Johnson 350.1.13.10 ity of [facility] 4.2.7.2.686 [place] [phone] Tx dical NAL [address] [facility] 2021-12-09 2021-12-09 [facility], [facility] [id number] 08:36:55 23:59:00 Encounter [facility] 2021-12-09 2021-12-09 Outpatient NIURKA CAMPOS [facility] [id number] [facility] 08:36:55 23:59:00 [facility] 2021-12-09 2021-12-09 [facility] [id number] 08:36:55 23:59:00 Encounter [facility] 2021-12-09 2021-12-09 [facility] [id number] [facility] 08:27:44 08:35:00 [facility]5, [facility] 2021-12-09 2021-12-[address] [facility] [facility] [id number] [facility] 08:27:44 08:35:00 [facility] 2021-12-09 2021-12-09 [facility] Bo [facility] [id number] [facility] 08:27:44 08:35:00 Encounter 1.5, [facility] Adithya [facility] 2021-12-09 2021-12-09 Outside [facility] [id number] 00:00:00 00:00:00 Orders [facility] 2021-12-09 2021-12-09 Outside [facility] [id number] 00:00:00 00:00:00 Orders [facility] 2021-12-03 2021-12-03 Outpatient Idris JOHNSON [facility] [id number] Univers 11:00:00 11:00:00 [facility] 2021-12-03 2021-12-03 Outpatient Idris JOHNSON [facility] [id number] Univers 10:15:00 10:15:00 [facility] 2021-12-01 2021-12-01 Ancillary Mala Davison [facility] 1.2.84 0.114 [id number] Univers 11:00:00 11:45:00 Visit Elaine Johnson 350.1.13.10 ity of [facility] 4.2.7.2.686 [place] [phone] Tx dical NAL [address] [facility] 2021-11-30 2021-11-30 Office Rubén [facility] 1.2.840.114 [id number] Univers 16:30:00 16:45:00 Visit [facility] 350.1.13.10 it y of [facility] 4.2.7.2.686 Jet as LINK?BLEA [phone] Tx dicgeorgie GONZALEZEY 044 [facility] OFFICE [facility] 2021-11-30 2021-11-30 Outpatient R RUBÉN [facility] [id number] Univers 16:30:00 16:30:00 KENNEY ity [facility] 2021-11-26 2021-11-26 Ancillary Ok Mcfadden [facility] 1.2. 840.114 [id number] Univers 09:30:00 10:58:44 Visit Elaine Johnson 350.1.13.10 ity of [facility] 4.2.7.2.686 [place] [phone] Tx dical NAL [address] [facility] 2021-11-26 2021-11-26 Ancillary Génesis Youngblood [facility] 1.2. 840.114 [id number] Univers 08:45:00 09:30:00 Visit Elaine Johnson 350.1.13.10 ity of [facility] 4.2.7.2.686 [place] [phone] Tx dical NAL [address] [facility] 2021-11-19 2021-11-19 Outpatient R ELIZABETH [facility] [id number] Univers 13:00:00 14:03:18 ELAINE itreena [facility] 2021-11-19 2021-11-19 Ancillary Ok Mcfadden [facility] 1.2. 840.114 [id number] Univers 13:00:00 14:03:18 Visit Elaine Johnson 350.1.13.10 ity of [place] 4.[place].7.2.686 [place] [phone] Tx dical NAL [address] [facility] 2021-11-17 2021-11-17 Ancillary Ok Mcfadden [facility] 1.2. 840.114 [id number] Univers 14:30:00 15:00:00 Visit Elaine Johnson 350.1.13.10 ity of [place] 4.2.7.2.686 [place] [phone] Tx dical NAL [address] [facility] 2021-11-17 2021-11-17 Ancillary Génesis Youngblood [facility] 1.2. 840.114 [id number] Univers 13:45:00 14:30:00 Visit Elaine Johnson 350.1.13.10 ity of [place] 4.2.7.2.686 [place] [id number] Tx dical NAL [address] [facility] 2021-11-17 2021-11-17 Outpatient R ELIZABETH [facility] [id number] Univers 13:45:00 13:45:00 ELAINE ity of [facility] 2021-11-12 2021-11-12 Ancillary Ok Mcfadden [facility] 1.2. 840.114 [id number] Univers 16:45:00 17:15:54 Visit Elaine Johnson 350.1.13.10 ity of [place] 4.2.7.2.686 [place] [id number] Tx dical NAL [address] [facility] 2021-11-12 2021-11-12 Ancillary Génesis Youngblood [facility] 1.2. 840.114 [id number] Univers 16:00:00 16:40:00 Visit Elaine Johnson 350.1.13.10 ity of [place] 4.2.7.2.686 [place] [id number] Tx dical NAL [address] [facility] 2021-11-10 2021-11-10 Ancillary Ok Mcfadden [facility] 1.2. 840.114 [id number] Univers 15:00:00 15:27:12 Visit Elaine Johnson 350.1.13.10 ity of [place] 4.2.7.2.686 [place] [id number] Tx dical NAL [address] [facility] 2021-11-10 2021-11-10 Ancillary FordGénesis [facility] 1.2. 840.114 [id number] Univers 14:20:00 15:00:00 Visit Elaine Johnson 350.1.13.10 ity of [facility] 4.2.7.2.[place] [phone] Tx dical NAL [address] [facility] 2021-11-10 2021-11-10 Outside [facility] [id number] [facility] 00:00:00 00:00:00 Orders [facility] 2021-11-06 2021-11-06 Ancillary Mala Davison [facility] 1.2.84 0.114 [id number] Univers 09:40:00 10:50:07 Visit Elaine Johnson 350.1.13.10 ity of [facility] 4.2.7.2.686 [place] [id number] Tx dical NAL [address] [facility] 2021-11-03 2021-11-03 Outpatient R ELIZABETH [facility] [id number] Univers 15:15:00 16:14:54 ELAINE ity of [facility] 2021-11-03 2021-11-03 Ancillary Ok Mcfadden [facility] 1.2. 840.114 [id number] Univers 15:15:00 16:14:54 Visit Elaine Johnson 350.1.13.10 it[facility] 4.2.7.2.[place] [phone] [place] dical NAL 178 [facility] 2021-11-03 2021-11-03 Orders Doctor FUENTES 1.2.840.114 [id number] Univers 00:00:00 00:00:00 Only Unassigned, HAILY 350.1.13.10 ity of [place] [facility] 4.2.7.2.686 Jet as [phone] [address] 2021-10-26 2021-10-26 Office TRUPTI VILLAFUERTE 1.2.840.114 [id number] [facility] 13:10:46 16:23:45 Visit BO AMBULATOR 350.1.13.21 College Y 0.2.7.2.686 of [phone] [facility] 800 e 2021-10-26 2021-10-26 Orders Doctor GINA 1.2.840.114 [id number] Univers 00:00:00 00:00:00 Only Unassigned, HAILY 350.1.13.10 ity of [place] [facility] 4.2.7.2.686 Jet as [phone] [address] 2021-10-21 2021-10-21 [facility] 1.2.840.114 [id number] Univers 11:15:00 11:45:00 Visit [facility] 350.1.13.10 it y of [place] 4.2.7.2.686 Jet as LINK?BLEA [phone] [address] MEDICAL OFFICE [facility] 2021-10-21 2021-10-21 Outpatient [facility] [id number] Univers 11:15:00 11:15:00 KENNEY waterman [facility] 2021-10-07 2021-10-07 Office [facility] 1.2.840.114 [id number] Univers 14:00:00 14:15:00 Visit [facility] 350.1.13.10 it [place] 4.2.7.2.686 Jet as LINK?BLEA [phone] [address] MEDICAL OFFICE BU[facility] 2021-10-07 2021-10-07 Outpatient R [facility] [id number] Univers 14:00:00 14:00:00 KENNEY waterman [facility] 2021-10-01 2021-10-01 Telephone GINA Lozoya 1.2.313.005 [id number] Univers 00:00:00 00:00:00 Mei JOHANSEN 350.1.13.10 i ty of HOSPITAL 4.2.7.2.686 Jet as [phone] [address] 2021-09-30 2021-09-30 Outpatient R JOE [facility] [id number] Univers 12:00:00 12:27:30 KAYLEIGH itreena [facility] 2021-09-30 2021-09-30 Urgent Kayleigh Diaz [facility] 1.2.840.114 [id number] Univers 11:36:45 12:27:30 Care [facility] 350.1.13.10 ity of [place] 4.2.7.2.686 Jet as LINK?BLEA [phone] [address] MEDICAL OFFICE [facility] 2021-09-26 2021-09-26 Outpatient R FRANCOISE [facility] [id number] Univers 10:48:45 23:59:00 ESTELA reena [facility] 2021-09-26 2021-09-26 [facility] 1.2.859.457 [id number] Univers 10:48:45 23:59:00 Encounter [facility] 350.1.13.10 [place] 4.2.7.2.686 Jet as LINK?BLEA [phone] [facility] [address] MEDICAL OFFICE [facility] 2021-09-26 2021-09-26 Urgent GayjennyEstela gilbert [facility] 1.2.840.114 [id number] Univers 10:32:31 10:54:28 Care Joe [facility] 350.1.13.10 ity of [place] 4.2.7.2.686 Jet as LINK?BLEA [phone] [address] MEDICAL OFFICE [facility] 2021-09-26 2021-09-26 Sharkey [facility] 1.2.840.114 [id number] Univers 00:00:00 00:00:00 Rania HEALTH 350.1.13.10 it y of [place] 4.2.7.2.686 Jet as LINK?BLEA [phone] [address] MEDICAL OFFICE [facility] 2021-08-20 2021-08-20 Anoop [place] [facility] 1.2.840.114 [id number] [facility] Univers 00:00:00 00:00:00 Kenney HEALTH 350.1.13.10 it y of [place] 4.2.7.2.686 Jet as PROFESSIO [phone] [facility] [address] OFFICE BUILDING ONE 2021-06-09 2021-06-09 Office CHIP Clark 1.2.840.114 [id number] Univers 13:06:31 13:26:31 Visit Natalio MASON 350.1.13.10 i ty of CL[place]ICS [place].2.[place] [phone] [facility] [address] 2021-06-09 2021-06-09 Out[facility] [id number] Univers 13:20:00 13:20:00 NATALIO davereena [facility] 2021-06-09 2021-06-09 Orders Doctor GINA 1.2.840.114 [id number] Univers 00:00:00 00:00:00 Only Unassigned, HAILY 350.1.13.10 ity of [place] [facility] 4.2.7.2.686 Jet as [phone] [facility] [address] 2021-05-28 2021-05-28 [facility] 1.2.840.114 [id number] Univers 00:00:00 00:00:00 Kenney [facility] 350.1.13.10 it y of [place] 4.2.7.2.686 Jet as Professio [phone] [address] Office Building One 2021-05-25 2021-05-25 [facility] 1.2.209.277 [id number] Univers 15:14:02 23:59:00 Encounter Kenney Alston 350.1.13.10 ity of [place].2.686 [place] [phone] [facility] [address] 2021-05-25 2021-05-25 Outpatient R [facility] [id number] Univers 14:45:00 14:45:00 KENNEY reena [facility] 2021-05-25 2021-05-25 Office [facility] 1.2.840.114 [id number] Univers 14:29:49 14:44:49 Visit [facility] 350.1.13.10 it y of [place] 4.2.7.2.686 Jet as Professio [phone] [place] dical nal [address] Office [facility] One 2021-05-25 2021-05-25 Orders Doctor GINA 1.2.840.114 [id number] Univers 00:00:00 00:00:00 Only Unassigned, HAILY 350.1.13.10 ity of [place] [facility] 4.2.7.2.686 Jet as [phone] [facility] [address] 2021-04-07 2021-04-07 Telephone [facility] 1.2.840.114 [id number] [facility] 00:00:00 00:00:00 [facility] 350.1.13.10 it y of [place] 4.2.7.2.686 Jet as Professio [phone] Tx dical nal [address] Office [facility] One 2021-03-27 2021-03-27 Telephone [facility] 1.2.094.404 [id number] 5704 Univers 00:00:00 00:00:00 [facility] 350.1.13.10 ity of [place] 4.2.7.2.686 Jet as Professio [phone] Tx dical nal [address] Office [facility] One 2021-03-27 2021-03-27 Telephone [facility] 1.2.840.114 [id number] Univers 00:00:00 00:00:00 [facility] Health 350.1.13.10 ity of Care Surgical 4.2.7.2.686 Jet as Specialti [phone] Tx dical es 370 [facility] 2021-03-25 2021-03-25 [facility] 1.2.840.114 [id number] Univers 17:31:01 23:59:00 Encounter Leilani Xieton 350.1.13.10 ity of [place].2.7.2.686 [place] [phone] [facility] [address] 2021-03-25 2021-03-25 Urgent [facility] 1.2.840.114 [id number] Univers 16:36:57 17:46:58 Care Leilani [facility] 350.1.13.10 ity of [place] 4.2.7.2.686 Jet as Profkristinaio [phone] Tx dicnell [facility] [address] Office Building One 2021-03-25 2021-03-25 Outpatient R NAYELY, [facility] [id number] Univers 16:40:00 16:40:00 LEILANI guevara o f [facility] 2021-03-12 2021-03-12 Outpatient R [facility] [id number] Univers 09:15:00 09:15:00 KENNEY waterman [facility] 2021-03-10 2021-03-10 Orders Doctor GINA 1.2.840.114 [id number] [facility] 00:00:00 00:00:00 Only Unassigned, HAILY 350.1.13.10 ity of [place] [facility] 4.2.7.2.686 Jet as [phone] [place] [address] [address] 2021-03-04 2021-03-04 Outpatient [facility] [id number] Univers 09:30:00 09:30:00 MICHAEL waterman [facility] 2021-03-04 2021-03-04 Office [facility] 1.2.840.114 [id number] 09:13:23 09:28:23 Visit Marlon MARTEL 350.1.13.10 [place] 4.2.7.2.686 [place] [phone] AND HADDAD [facility] DIABETES CLINIC 2021-03-04 2021-03-04 Office Marlon Flores [facility] 1.2.840.114 [id number] Univers 09:13:23 09:28:23 Visit Michael Cortez 350.1.1 3.10 ity of [place].2.7.2.686 [place] [phone] [facility] AND [address] DIABETES CLINIC 2021-03-04 2021-03-04 Telephone [facility] 1.2.840.114 [id number] 00:00:00 00:00:00 Kenney [place] 350.1.13.10 [place] 4.2.7.2.686 Professio [phone] [address] 2021-03-04 2021-03-04 Telephone [facility] 1.2.840.114 [id number] Univers 00:00:00 00:00:00 Kenney Alston 350.1.13.10 i ty of [place].2.7.2.686 [place] Professio [phone] [place] [address] Branch Building 2021-02-26 2021-02-26 [facility] 1.2.840.114 [id number] Univers 17:17:53 23:59:00 Encounter Delia Alston 350.1.13.10 ity of [place].2.7.2.686 [place] [phone] [facility] [address] 2021-02-26 2021-02-26 Urgent Provider, [facility] Care [facility] 1.2.840.114 [id number] Univers 15:15:40 15:35:40 Care Lexie Srivastava 350.1.13.10 ity of [place] 4.2.7.2.686 Jet as Professio [phone] [address] Office Building One 2021-02-26 2021-02-26 Outpatient R ATIF [facility] [id number] Univers 15:20:00 15:20:00 LEXIE ity of [facility] 2021-02-26 2021-02-26 Telephone [facility] 1.2.840.114 [id number] Univers 00:00:00 00:00:00 Kenney [facility] 350.1.13.10 it y of [place] 4.2.7.2.686 Jet as Professio [phone] [address] Office Building One 2021-02-26 2021-02-26 Orders Doctor GINA 1.2.840.114 [id number] Univers 00:00:00 00:00:00 Only Unassigned, HAILY 350.1.13.10 ity of [place] [facility] 4.2.7.2.686 Jet as [phone] [facility] [address] 2021-02-19 2021-02-19 Office TRUPTI Villafuerte 1.2.840.114 [id number] [facility] 13:18:10 16:14:12 Visit Bo AMBULATOR 350.1.13.21 College Y 0.2.7.2.686 of [phone] [facility] 800 e 2021-02-19 2021-02-19 Office TRUPTI Villafuerte 1.2.840.114 [id number] 13:18:10 16:14:12 Visit Bo AMBULATOR 350.1.13.21 Y 0.2.7.2.686 [id number] 800 2021-01-13 2021-01-13 Emergency Josr [facility] 1.2.726.627 [id number] Univers 19:15:00 20:06:00 Margie S Alecia 350.1.13.10 i ty of [place].2.7.2.[place] [phone] [facility] [address] 2021-01-13 2021-01-13 Outpatient R JOE [facility] [id number] Univers 17:20:00 17:20:00 [facility] 2021-01-13 Outpatient R [facility] [id number] Univers 17:00:00 17:00:00 [facility] 2021-01-13 2021-01-13 Nurse Nurse, [facility] 1.2 .840.114 [id number] Univers 16:42:47 16:57:47 Visit Joe [facility] 350.1.13.10 ity [facility] 4.2.7.2.686 Jet as Professio [phone] Tx dical nal [address] Office Building One 2021-01-13 2021-01-13 Patient Charles [facility] 1.2.840.114 [id number] Univers 00:00:00 00:00:00 Outreach Oskar PRIMARY 350.1.13.10 i ty of [facility] 4.2.7.2.686 [place] [phone] Me dical [address] 2020-12-08 2020-12-08 Outpatient [facility] [id number] [facility] 16:00:00 16:00:00 KYLAH reena [facility] 2020-11-15 2020-11-15 [facility] 1.2.840.114 [id number] Univers 00:00:00 00:00:00 Kenney [facility] 350.1.13.10 it y of [place] 4.2.7.2.686 Jet as Professio [phone] [place]x dical nal [address] Office [facility] 2020-10-06 2020-10-06 Emergency X SOLOMON [facility] ERT [id number] Univers 16:08:00 17:44:00 PATRIZIA [facility] 2020-10-06 2020-10-06 Emergency [facility] 1.2.840.114 [id number] [facility] 16:08:00 17:44:00 Patrizia [place] 350.1.13.10 ity of [place] 4.2.7.2.[address] [facility] [phone] [address] 2020-08-08 2020-08-08 [facility] 1.2.840.114 [id number] Univers 15:38:29 15:53:29 Visit Kenney [facility] 350.1.13.10 it y of [place] 4.2.7.2.686 [place] as Professio [phone] Tx dicme nal [address] [place] [address] 2020-08-08 2020-08-08 Outpatient R [facility] [id number] Univers 15:45:00 15:45:00 KENNEY [facility] 2020-07-30 2020-07-30 Outpatient R [facility] [id number] Univers 08:00:00 08:00:00 KENNEY [facility] 2020-07-29 2020-07-29 Laboratory Lab, Adc Fam Pob I [facility] 1.2. 840.114 [id number] Univers 13:55:33 14:21:17 Only Pat, [facility] 350.1.13.10 ity of [place] 4.2.7.2.686 Jet as Professio [phone] Tx dicme nal [address] Office [facility] 2020-07-29 2020-07-29 Outpatient R [facility] [id number] Univers 14:00:00 14:00:00 ity of [facility] 2020-05-31 2020-05-31 Refill Rubén [facility] 1.2.840.114 [id number] Univers 00:00:00 00:00:00 Kenney Mason 350.1.13.10 it y of [place] 4.2.7.2.686 Jet as Professio [phone] [address] 2020-05-28 2020-05-28 Telephone Rubén [facility] 1.2.840.114 [id number] Univers 00:00:00 00:00:00 Kenney Xieton 350.1.13.10 i ty of [place].2.7.2.686 [place] Profess[place] [phone] [address] 2020-05-26 2020-05-26 Office TRUPTI Villafuerte 1.2.840.[id number] [place] [address] 12:58:44 14:28:09 Visit Bo AMBULATOR 350.1.13.21 College Y 0.2.7.2.686 of [id number] [facility] 800 e 2020-05-26 2020-05-26 Office TRUPTI Villafuerte 1.2.840.114 [id number] 12:58:44 14:28:09 Visit Bo AMBULATOR 350.1.13.21 Y 0.2.7.2.686 [id number] [facility] 2020-05-26 2020-05-26 Orders Doctor GINA 1.2.840.114 [id number] Univers 00:00:00 00:00:00 Only Unassigned, HAILY 350.1.13.10 ity of [place] [facility] 4.2.7.2.686 Jet as [phone] [facility] [address] 2020-04-18 2020-04-18 Laboratory Lab, Adc Fam Pob I [facility] 1.2. 840.114 [id number] Univers 07:22:49 07:42:49 Only Anene, [facility] 350.1.13.10 ity of [place] 4.2.7.2.686 Jet as Professio [phone] Tx dical nal [address] Office Building One 2020-04-18 2020-04-18 Outpatient R [facility] [id number] Univers 07:40:00 07:40:00 ity of [facility] 2020-02-12 2020-02-12 Orders Doctor GINA 1.2.840.114 [id number] Univers 00:00:00 00:00:00 Only Unassigned, HAILY 350.1.13.10 ity of [place] [facility] 4.2.7.2.686 Jet as [phone] [facility] [address] 2020-02-05 2020-02-05 Telephone [facility] 1.2.840.114 [id number] Univers 00:00:00 00:00:00 Kenney [place] 350.1.13.10 i ty of [place].2.7.2.686 [place] Profess[place] [phone] Tx dical nal 044 [facility] 2020-02-04 2020-02-04 Office Froylan Chapman 1.2.840.114 [id number] [facility] 09:09:07 09:46:42 Visit AMBULATOR 350.1.13.21 College Y 0.2.7.2.686 of 669.2896366 [facility] 305 e 2020-02-04 2020-02-04 Office Froylan Chapman 1.2.840.114 [id number] 09:09:07 09:46:42 Visit AMBULATOR 350.1.13.21 Y 0.2.7.2.686 [id number] [facility] 2020-01-25 2020-01-25 Outpatient R NEMO [facility] [id number] Univers 15:10:00 15:10:00 RICARDO ity of [facility] 2020-01-23 2020-01-23 Telemedici [facility] 1.2.840.114 [id number] Univers 10:14:37 10:24:37 ne Visit Ricardo [facility] 350.1.13.10 ity [address] [facility] 4.2.7.2.[place] [phone] [facility] [address] 2020-01-02 2020-01-02 [facility] 1.2.840.114 [id number] Univers 00:00:00 00:00:00 [facility] 350.1.13.10 it y of [place] 4.2.7.2.686 Jet as Professio [phone] [address] Office Building One 2019-12-17 2019-12-17 Refill [facility] 1.2.840.114 [id number] Univers 00:00:00 00:00:00 Kenney [facility] 350.1.13.10 it y of [place] 4.2.7.2.686 Jet as Professio 015.3475852 [address] Office Building One 2019-12-11 2019-12-11 Office [facility] 1.2.840.114 [id number] Univers 12:42:11 12:57:11 Visit Kenney [facility] 350.1.13.10 it y of [place] 4.2.7.2.686 Jet as Professio [phone] [address] Office Building One 2019-12-06 2019-12-06 Office [facility] 1.2.840.114 [id number] Univers 09:05:42 09:20:42 Visit Kenney [facility] 350.1.13.10 it y of [place] 4.2.7.2.686 Jet as Professio [phone] [address] Office Building One 2019-11-19 2019-11-19 Office [facility] 1.2.840.114 [id number] Univers 08:08:55 08:32:20 Visit [facility] 350.1.13.10 it y of [place] 4.2.7.2.686 Jet as Professio 232.9068124 [address] Office Building One 2019-11-19 2019-11-19 Orders Doctor GINA 1.2.840.114 [id number] Univers 00:00:00 00:00:00 Only Unassigned, HAILY 350.1.13.10 ity of [place] [facility] 4.2.7.2.686 Jet as [phone] [address] 2019-11-17 2019-11-17 Emergency Gibran, [facility] 1.2.363.665 [id number] Univers 12:03:36 14:36:00 Fuentes [place] 350.1.13.10 i ty of [place] 4.2.7.2.[address] [facility] [phone] [facility] [address] 2019-11-17 2019-11-17 Orders Doctor GINA 1.2.840.114 [id number] Univers 00:00:00 00:00:00 Only Unassigned, HAILY 350.1.13.10 ity of [place] [facility] 4.2.7.2.686 Jet as [phone] [facility] [address] 2019-10-26 2019-10-26 Orders Doctor GINA 1.2.840.114 [id number] Univers 00:00:00 00:00:00 Only Unassigned, HAILY 350.1.13.10 ity of [place] [facility] 4.2.7.2.686 Jet as [phone] [facility] [address] 2019-08-15 2019-08-15 Office Froylan Chapman 1.2.840.114 [id number] [facility] 13:59:36 14:57:31 Visit AMBULATOR 350.1.13.21 College Y 0.2.7.2.686 of [id number] [facility] 305 e 2019-08-15 2019-08-15 Office Froylan Chapman 1.2.840.114 [id number] 13:59:36 14:57:31 Visit AMBULATOR 350.1.13.21 Y 0.2.7.2.686 [id number] [facility] 2019-07-06 2019-07-06 Office Pat [facility] 1.2.840.114 [id number] Univers 15:46:49 16:56:54 Visit Maddie Health 350.1.13.10 it y of [place] 4.2.7.2.686 Jet as Kenisha [phone] [facility] [address] Office Building One 2019-07-02 2019-07-02 Telephone Rubén [facility] 1.2.840.114 [id number] Univers 00:00:00 00:00:00 Kenney Health 350.1.13.10 it y of [place] 4.2.7.2.686 Jet as Professio [phone] [address] Office [facility] One 2019-06-15 2019-06-15 Office [facility] 1.2.840.114 [id number] 416 [facility] 11:23:37 11:38:37 Visit [facility] 350.1.13.10 it y of [place] 4.2.7.2.686 Jet as Professio [phone] [address] Office [facility] One 2019-06-15 2019-06-15 [facility] 1.2.840.114 [id number] [facility] 00:00:00 00:00:00 [facility] 350.1.13.10 it y of [place] 4.2.7.2.686 Jet as Professio [phone] [address] One 2019-06-12 2019-06-12 Machinist/Machine Builder Therapist, Adc Respiratory [facility] 1.2.840.114 [id number] Univers 07:40:47 09:10:47 Visit Jesus Alberto Berrios 350.1.13. 10 ity of [place] 4.2.7.2.[address] [facility] [phone] [facility] [address] 2019-06-12 2019-06-12 Orders Doctor GINA 1.2.840.114 [id number] Univers 00:00:00 00:00:00 Only Unassigned, HAILY 350.1.13.10 ity of [place] [facility] 4.2.7.2.686 Jet as [phone] [address] 2019-05-30 2019-05-30 Orders Doctor GINA 1.2.840.114 [id number] Univers 00:00:00 00:00:00 Only Unassigned, HAILY 350.1.13.10 ity of [place] [facility] 4.2.7.2.686 Jet as [phone] [address] 2019-05-29 2019-05-29 Office [facility] 1.2.840.114 [id number] Univers 10:25:46 10:52:46 Visit [facility] 350.1.13.10 it y of [place] 4.2.7.2.686 Jet as Profkristinaio [phone] Tx dical nal [address] Office Building One 2019-05-18 2019-05-18 Office Rubén [facility] 1.2.840.114 [id number] Univers 15:29:23 15:44:23 Visit [facility] 350.1.13.10 it y of [place] 4.2.7.2.686 Jet as Profkristinaio [phone] Tx dical nal [address] Office Building One Results Test Description Test Time Test Comments Results Result Comments Source POCT GLUCOSE (AUTOMATED) 2022-07-26 18:17:44 Test Item Value Reference Range Interpretation Comme nts POCT GLU (test code = 6344661553) 171 mg/dL 70-110 H Lab Interpretation (test code = 92369-8) Abnormal [facility] GLUCOSE (AUTOMATED)2022-07-26 18:17:44 Test Item Value Reference Range Interpretation Comments POCT GLU (test code = 2263376590) 171 mg/dL 70-110 H Lab Interpretation (test code = Abnormal 19784-2) [facility] [id number] 13:37:07 Test Item Value Reference Range Interpretation Comments ABO & RH (test code O Positive Performe d at [facility] = 20) Laboratory [facility] [place] [address] Free: [phone] A No. [id number] IAT (test code = Negative Performed a t [facility] 1185) Laboratory [facility] [place], [place] [address]Toll Free: [phone] A No. [id number] [facility] - [facility] Pyixsiq7409-98-21 13:37:07 Test Item Value Reference Range Interpretation Comments ABO & RH (test code O Positive Performe d at [facility] = 20) Laboratory [facility] [place], [place] [address]Toll Free: [phone] A No. [id number] IAT (test code = Negative Performed a t [facility] 1185) Laboratory [facility] Blood [facility] [place] [address] Free: [phone] A No. [id number] [facility] with Apjssgafjocr5738-43-50 13:06:13 Test Item Value Reference Range Interpretation Comments WBC (test code = See_Comment L [Automated 6690-2) message] The sy stem which generated this result transmitted reference range : 4.20 - 10.70 10*3/?L. The reference range was not used to interpret this result as normal/abnormal . RBC (test code = See_Comment [Automated 789-8) message] The sy stem which generated this result transmitted reference range : 4.26 - 5.52 10*6/?L. The reference range was not used to interpret this result as normal/abnormal . HGB (test code = 14.4 g/dL 12.2-16.4 718-7) HCT (test code = 42.4 % 38.4-49.3 4544-3) MCV (test code = 90.0 fL 81.7-95.6 787-2) MCH (test code = 30.6 pg 26.1-32.7 785-6) MCHC (test code = 34.0 g/dL 31.2-35 786-4) RDW-SD (test code = 41.0 fL 38.5-51.6 10785-5) RDW-CV (test code = 12.3 % 12.1-15.4 788-0) PLT (test code = See_Comment L [Automated 777-3) message] The sy stem which generated this result transmitted reference range : 150 - 328 10*3/ ?L. The reference r dash was not used to interpret this result as normal/abnormal . MPV (test code = 9.0 fL 9.8-13 L 77359-7) NRBC/100 WBC (test See_Comment [Automat ed code = 4967621535) message] The system which generated this result transmitted reference range : 0.0 - 10.0 /100 WBCs. The refer ence range was not u sed to interpret th is result as normal/abnormal . NRBC x10^3 (test code See_Comment [Auto mated = 2112313503) message] The s ystem which generated this result transmitted reference range : 10*3/?L. The reference range was not used to interpret this result as normal/abnormal . GRAN MAT (NEUT) % 46.1 % (test code = 770-8) IMM GRAN % (test code 0.00 % = 0065787011) LYMPH % (test code = 45.3 % 736-9) MONO % (test code = 8.3 % 5905-5) EOS % (test code = 0.0 % 713-8) BASO % (test code = 0.3 % 706-2) GRAN MAT x10^3(ANC) 1.66 10*3/uL 1.99-6.95 L (test code = 1377120464) IMM GRAN x10^3 (test 0-0.06 code = 5476108494) LYMPH x10^3 (test code 1.63 10*3/uL 1.09-3.23 = 731-0) MONO x10^3 (test code 0.30 10*3/uL 0.36-1.02 L = 742-7) EOS x10^3 (test code = 0.06-0.53 L 711-2) BASO x10^3 (test code 0.01-0.09 = 704-7) Lab Interpretation Abnormal (test code = 57931-1) [facility] with Tjebrhkazalo2153-07-42 13:06:13 Test Item Value Reference Range Interpretation Comments WBC (test code = See_Comment L [Automated 6190-2) message] The sy stem which generated this result transmitted reference range : 4.20 - 10.70 10*3/?L. The reference range was not used to interpret this result as normal/abnormal . RBC (test code = See_Comment [Automated 219-8) message] The sy stem which generated this result transmitted reference range : 4.26 - 5.52 10*6/?L. The reference range was not used to interpret this result as normal/abnormal . HGB (test code = 14.4 g/dL 12.2-16.4 718-7) HCT (test code = 42.4 % 38.4-49.3 4544-3) MCV (test code = 90.0 fL 81.7-95.6 787-2) MCH (test code = 30.6 pg 26.1-32.7 785-6) MCHC (test code = 34.0 g/dL 31.2-35 786-4) RDW-SD (test code = 41.0 fL 38.5-51.6 75029-3) RDW-CV (test code = 12.3 % 12.1-15.4 788-0) PLT (test code = See_Comment L [Automated 777-3) message] The sy stem which generated this result transmitted reference range : 150 - 328 10*3/ ?L. The reference r dash was not used to interpret this result as normal/abnormal . MPV (test code = 9.0 fL 9.8-13 L 82757-9) NRBC/100 WBC (test See_Comment [Automat ed code = [id number]) message] The system which generated this result transmitted reference range : 0.0 - 10.0 /100 WBCs. The refer ence range was not u sed to interpret th is result as normal/abnormal . NRBC x10^3 (test code See_Comment [Auto mated = [id number]) message] The s ystem which generated this result transmitted reference range : 10*3/?L. The reference range was not used to interpret this result as normal/abnormal . GRAN MAT (NEUT) % 46.1 % (test code = 770-8) IMM GRAN % (test code 0.00 % = [id number]) LYMPH % (test code = 45.3 % 736-9) MONO % (test code = 8.3 % 5905-5) EOS % (test code = 0.0 % 713-8) BASO % (test code = 0.3 % 706-2) GRAN MAT x10^3(ANC) 1.66 10*3/uL 1.99-6.95 L (test code = [id number]) IMM GRAN x10^3 (test 0-0.06 code = [id number]) LYMPH x10^3 (test code 1.63 10*3/uL 1.09-3.23 = 731-0) MONO x10^3 (test code 0.30 10*3/uL 0.36-1.02 L = 742-7) EOS x10^3 (test code = 0.06-0.53 L 711-2) BASO x10^3 (test code 0.01-0.09 = 704-7) Lab Interpretation Abnormal (test code = 35702-9) [facility] [id number] 13:50:00Unlisted Reason for Exam - Click Yes and Enter Reason Below- >YesUnlisted Reason for Exam->Left-sided weakness [facility] : 1990 Sex: MFINAL REPORT Examination: MR, BRAIN, WITHOUT IV CONTRAST History: Left- sided weakness.History of seizures. Cardiac patient. Comparison studies: Head CT from 01/25/2019. Technique:Sagittal T2; axial T1, GRE or SWI, DWI, T2 FLAIR; coronal T2 and T2 FLAIR through the temporal lobes; 3-D T1 MACK Findings: Mass: None.Encephalomalacia: No areas.Ischemic changes: None.Calcification/iron: Punctate hypointense focus regional to the right postcentral gyrus with associated hypointense signal on phase map consistent with remote microhemorrhage. Additional similar punctate signal abnormality in the left paramedian superior vermis and regional to the left middle frontal gyrus.Hippocampi: No atrophy or gliosis. Normal fornices.Vascular: No obvious vascular malformation. Normal flow voids in major arteries and veins.Suarez matter: No cortical migration anomalies.White matter: Nonspecific punctate T2/ FLAIR hyperintense focus in the left periatrial white matter (series 6 image 14). Other:Brain volume: Normal for age.Ventricles: No hydrocephalus or displacement. Foramen Magnum: Unremarkable.Sella: Unremarkable.Skull: No focal lesions.Sinuses/mastoids: No significant inflammatory disease. Minimal circ umferential T2 hyperintense mucosal thickening of the paranasal sinuses. IMPRESSION: 1.No acute intracranial abnormalities. No acute intracranial infarct.2.Scattered punctate remote microhemorrhages. Signed: Adrienne Montero MDReport Verified Date/Time: 12/09/2021 13:50:38 RAD, CHEST, 2 [id number] 09:49:00 Reason for Exam:->Left-sided weaknessReason for Exam:->pacemaker placement for mriPARNASSUS CAMPUSName: GINA ALEXANDER : 1990 Sex: MFINAL REPORT EXAMINATION: RAD, CHEST, 2 VIEWS INDICATION: Left-sided weaknesspacemakerplacement for mri COMPARISON: January 25, 2019 FINDINGS:TUBES and LINES: Left chest cardiac device withtwo leads in the heart. Sternal wires. LUNGS: Lungs are well inflated. Lungs are clear. There is no evidence of pneumonia or pulmonary edema. PLEURA: No pleural effusion or pneumothorax. HEART AND MEDIASTINUM: The cardiomediastinal silhouette is unremarkable. BONES AND SOFT TISSUES: No acute osseous lesion. Soft tissues are unremarkable. UPPER ABDOMEN: No free air under the diaphragm. IMPRESSION: No acute thoracic abnormality. Signed: Cailin Montes MDReport Verified Date/Time: 12/09/2021 09:49:30 XR HAND 3+ VW [id number] 23:10:41 1. No acute osseous abnormality of the right hand. RL: [id number] End of Report Electronically signed by:Genoveva Lazo MD [facility], Radiant Results Inft User - 02/26/2021 6:11 PM CDTORDERING PHYSICIAN: DELIA NARANJOHISTORY: Laceration Right Hand STUDY: XR HAND 3+ VW RIGHTTechnical Quality: AdequateTECHNIQUE: 3 views of the right handExam wasperformed according to ALARA (As Low As Reasonably Achievable)dose principles.COMPARISON: NoneDATE: 02/26/2021 5:17 PMFINDINGS: No fracture, dislocation, or other acute osseous abnormality ofthe right hand. No gross soft tissue disruption or radiopaque foreignbodies.IMPRESSION1. No acute osseous abnormality of the right hand.RL: [id number] of Report [facility] METABOLIC [id number] 05:40:00 Test Item Value Reference Range Interpretation Comments SODIUM (BEAKER) 139 meq/L 136-145 (test code = 381) POTASSIUM (BEAKER) 3.8 meq/L 3.5-5.1 (test code = 379) CHLORIDE (BEAKER) 105 meq/L 98-107 (test code = 382) CO2 (BEAKER) (test 26 meq/L 22-29 code = 355) BLOOD UREA NITROGEN 12 mg/dL 7-21 (BEAKER) (test code = 354) CREATININE (BEAKER) 0.76 mg/dL 0.57-1.25 (test code = 358) GLUCOSE RANDOM 89 mg/dL 70-105 (BEAKER) (test code = 652) CALCIUM (BEAKER) 9.5 mg/dL 8.4-10.2 (test code = 697) EGFR (BEAKER) (test 121 mL/min/1.73 ESTIM ATED GFR IS code = 1092) sq m NOT ACCURATE CREATININE CLEARANCE IN PREDICTING GLOMERULAR FILTRATION RATE . ESTIMATED GFR I S NOT APPLICABLE FOR DIALYSIS PATIEN TS. CBC (HEMOGRAM ONLY)2019-01-26 04:59:00 Test Item Value Reference Range Interpretation Comments WHITE BLOOD CELL COUNT (BEAKER) 5.1 K/ L 3.5-10.5 (test code = 775) RED BLOOD CELL COUNT (BEAKER) 5.15 M/ L 4.63-6.08 (test code = 761) HEMOGLOBIN (BEAKER) (test code = 14.9 GM/DL 13.7-17.5 410) HEMATOCRIT (BEAKER) (test code = 45.3 % 40.1-51.0 411) MEAN CORPUSCULAR VOLUME (BEAKER) 88.0 fL 79.0-92.2 (test code = 753) MEAN CORPUSCULAR HEMOGLOBIN 28.9 pg 25.7-32.2 (BEAKER) (test code = 751) MEAN CORPUSCULAR HEMOGLOBIN CONC 32.9 GM/DL 32.3-36.5 (BEAKER) (test code = 752) RED CELL DISTRIBUTION WIDTH 13.3 % 11.6-14.4 (BEAKER) (test code = 412) PLATELET COUNT (BEAKER) (test 146 K/CU MM 150-450 L code = 756) MEAN PLATELET VOLUME (BEAKER) 9.5 fL 9.4-12.4 (test code = 754) NUCLEATED RED BLOOD CELLS 0 /100 WBC 0-0 (BEAKER) (test code = 413) RAD, CHEST, 1 VIEW, NON [id number] 04:43:00Reason for exam:->Tet of Fallot / HF / SOBShould this be performed at the bedside?->YesFINAL REPORT EXAMINATION: AP PORTABLE CHEST RADIOGRAPH CLINICAL INDICATION: Shortness of breath. History of tetralogy of flow. 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 "Kissing" vascular stents are also again noted along the origins of the right and left pulmonary arteries. The heart is mildly enlarged but stable. Mediastinal contours are overall unchanged. No evidence of new lung consolidation, pulmonary edema, pleural effusion, pneumothorax or acute osseous abnormality. A dual lead left subclavian cardiac pacing device is again noted. In summary, no definite radiographic evidence of an acute cardiopulmonary process. Signed: Checo Francis MDReport Verified Date/Time: 01/25/2019 04:43:52 Reading Location: [address] Reading Room A [id number] 00:57:00 Test Item Value Reference Range Interpretation Comments TROPONIN I (BEAKER) (test code = 397) < ng/mL 0.00-0.03 Troponin I (TnI) levels must be interpreted in the context of the presenting symptoms and the clinical findings. Elevated TnI levels indicate myocardial damage, but are not specific for ischemic heart disease. Elevated TnI levels are seen in patients with other cardiac conditions (including myocarditis and congestive heart failure), and slight TnI elevations occur in patients with other conditions, including sepsis, renal failure, acidosis, acute neurological disease, and persistent tachyarrhythmia.B-TYPE NATRIURETIC FACTOR (BNP) 2019-01-25 00:53:00 Test Item Value Reference Range Interpretation Comments B-TYPE NATRIURETIC PEPTIDE (BEAKER) 56 pg/mL 0-100 (test code = 700) BASIC METABOLIC [id number] 00:50:00 Test Item Value Reference Range Interpretation Comments SODIUM (BEAKER) 140 meq/L 136-145 (test code = 381) POTASSIUM (BEAKER) 4.2 meq/L 3.5-5.1 Specimen slightly (test code = 379) hemolyzed CHLORIDE (BEAKER) 108 meq/L 98-107 H (test code = 382) CO2 (BEAKER) (test 25 meq/L 22-29 code = 355) BLOOD UREA NITROGEN 18 mg/dL 7-21 (BEAKER) (test code = 354) CREATININE (BEAKER) 0.78 mg/dL 0.57-1.25 Specimen slightly (test code = 358) hemolyzed GLUCOSE RANDOM 104 mg/dL 70-105 (BEAKER) (test code = 652) CALCIUM (BEAKER) 9.6 mg/dL 8.4-10.2 (test code = 697) EGFR (BEAKER) (test 118 mL/min/1.73 ESTIM ATED GFR IS code = 1092) sq m NOT ACCURATE CREATININE CLEARANCE IN PREDICTING GLOMERULAR FILTRATION RATE . ESTIMATED GFR I S NOT APPLICABLE FOR DIALYSIS PATIEN TS. CREATINE KINASE (CK)2019-01-25 00:50:00 Test Item Value Reference Range Interpretation Comments CREATINE KINASE TOTAL (BEAKER) (test 47 U/L 29-200 code = 380) CT, BRAIN, WITHOUT [id number] 00:41:00Reason for exam:- >HYPOTENSIONWhat is the patient's sedation requirement?->No SedationFINAL REPORT EXAM: CT head without contrast. CLINICAL HISTORY: Tinnitus, non-pulsatile. Hypertension. COMPARISON: Head CT 06/30/2011 TECHNIQUE: CT images of the head were obtained without intravenous contrast. This exam was performed according to our departmental dose optimization program which includes automated exposure control, adjustment of the mA and/or kV according to patient' s size and/or use of iterative reconstructive technique. FINDINGS: There is no acute intracranial hemorrhage, extra-axial fluid collection, mass effect, herniation, hydrocephalus or large demarcated acute territorial infarct. The basal cisterns are patent. The visualized orbits are normal. The visualized paranasal sinuses and tympanomastoid cavities are clear. The skull base and calvarium are intact.IMPRESSION: No CT evidence of an acute intracranial process. Signed: Jannette Elizalde MDReport VerifiedDate/Time: 01/25/2019 00:41:09 Reading Location: [address] Body Reading Room CBC W/PLT COUNT & AUTO [id number] 00:21:00 Test Item Value Reference Range Interpretation Comments WHITE BLOOD CELL COUNT (BEAKER) 6.2 K/ L 3.5-10.5 (test code = 775) RED BLOOD CELL COUNT (BEAKER) 4.77 M/ L 4.63-6.08 (test code = 761) HEMOGLOBIN (BEAKER) (test code = 14.3 GM/DL 13.7-17.5 410) HEMATOCRIT (BEAKER) (test code = 42.2 % 40.1-51.0 411) MEAN CORPUSCULAR VOLUME (BEAKER) 88.5 fL 79.0-92.2 (test code = 753) MEAN CORPUSCULAR HEMOGLOBIN 30.0 pg 25.7-32.2 (BEAKER) (test code = 751) MEAN CORPUSCULAR HEMOGLOBIN CONC 33.9 GM/DL 32.3-36.5 (BEAKER) (test code = 752) RED CELL DISTRIBUTION WIDTH 13.3 % 11.6-14.4 (BEAKER) (test code = 412) PLATELET COUNT (BEAKER) (test 155 K/CU MM 150-450 code = 756) MEAN PLATELET VOLUME (BEAKER) 9.6 fL 9.4-12.4 (test code = 754) NUCLEATED RED BLOOD CELLS 0 /100 WBC 0-0 (BEAKER) (test code = 413) NEUTROPHILS RELATIVE PERCENT 62 % (BEAKER) (test code = 429) LYMPHOCYTES RELATIVE PERCENT 29 % (BEAKER) (test code = 430) MONOCYTES RELATIVE PERCENT 9 % (BEAKER) (test code = 431) EOSINOPHILS RELATIVE PERCENT 0 % (BEAKER) (test code = 432) BASOPHILS RELATIVE PERCENT 0 % (BEAKER) (test code = 437) NEUTROPHILS ABSOLUTE COUNT 3.86 K/ L 1.78-5.38 (BEAKER) (test code = 670) LYMPHOCYTES ABSOLUTE COUNT 1.82 K/ L 1.32-3.57 (BEAKER) (test code = 414) MONOCYTES ABSOLUTE COUNT (BEAKER) 0.53 K/ L 0.30-0.82 (test code = 415) EOSINOPHILS ABSOLUTE COUNT 0.00 K/ L 0.04-0.54 L (BEAKER) (test code = 416) BASOPHILS ABSOLUTE COUNT (BEAKER) 0.00 K/ L 0.01-0.08 L (test code = 417) IMMATURE GRANULOCYTES-RELATIVE 0 % 0-1 PERCENT (BEAKER) (test code = 2801) VALPROIC ACID LEVEL, [id number] 12:27:00 Test Item Value Reference Range Interpretation Comments VALPROIC ACID TOTAL (BEAKER) (test 11 ug/mL 50-100 L code = 924) Therapeutic range for some clinical conditions may be >100 ug/mLHEPATIC FUNCTION [id number] 11:43:00 Test Item Value Reference Range Interpretation Comments TOTAL PROTEIN (BEAKER) (test code = 6.3 gm/dL 6.0-8.3 770) ALBUMIN (BEAKER) (test code = 1145) 3.9 g/dL 3.5-5.0 BILIRUBIN TOTAL (BEAKER) (test code 0.6 mg/dL 0.2-1.2 = 377) BILIRUBIN DIRECT (BEAKER) (test 0.3 mg/dL 0.1-0.5 code = 706) ALKALINE PHOSPHATASE (BEAKER) (test 51 U/L 40-150 code = 346) AST (SGOT) (BEAKER) (test code = 15 U/L 5-34 353) ALT (SGPT) (BEAKER) (test code = 17 U/L 6-55 347) BASIC METABOLIC [id number] 07:43:00 Test Item Value Reference Range Interpretation Comments SODIUM (BEAKER) 136 meq/L 136-145 (test code = 381) POTASSIUM (BEAKER) 4.0 meq/L 3.5-5.1 (test code = 379) CHLORIDE (BEAKER) 106 meq/L 98-107 (test code = 382) CO2 (BEAKER) (test 22 meq/L 22-29 code = 355) BLOOD UREA NITROGEN 11 mg/dL 7-21 (BEAKER) (test code = 354) CREATININE (BEAKER) 0.72 mg/dL 0.57-1.25 (test code = 358) GLUCOSE RANDOM 90 mg/dL 70-105 (BEAKER) (test code = 652) CALCIUM (BEAKER) 8.9 mg/dL 8.4-10.2 (test code = 697) EGFR (BEAKER) (test 129 mL/min/1.73 ESTIM ATED GFR IS code = 1092) sq m NOT ACCURATE CREATININE CLEARANCE IN PREDICTING GLOMERULAR FILTRATION RATE . ESTIMATED GFR I S NOT APPLICABLE FOR DIALYSIS PATIEN TS. B-TYPE NATRIURETIC FACTOR (BNP)2018-12-23 07:25:00 Test Item Value Reference Range Interpretation Comments B-TYPE NATRIURETIC PEPTIDE (BEAKER) 11 pg/mL 0-100 (test code = 700) TROPONIN [id number] 07:22:00 Test Item Value Reference Range Interpretation Comments TROPONIN I (BEAKER) (test code = 397) < ng/mL 0.00-0.03 Troponin I (TnI) levels must be interpreted in the context of the presenting symptoms and the clinical findings. Elevated TnI levels indicate myocardial damage, but are not specific for ischemic heart disease. Elevated TnI levels are seen in patients with other cardiac conditions (including myocarditis and congestive heart failure), and slight TnI elevations occur in patients with other conditions, including sepsis, renal failure, acidosis, acute neurological disease, and persistent tachyarrhythmia.CBC W/PLT COUNT & AUTO DIFFERENTIAL 2018-12-23 06:56:00 Test Item Value Reference Range Interpretation Comments WHITE BLOOD CELL COUNT (BEAKER) 5.0 K/ L 3.5-10.5 (test code = 775) RED BLOOD CELL COUNT (BEAKER) 4.71 M/ L 4.63-6.08 (test code = 761) HEMOGLOBIN (BEAKER) (test code = 13.5 GM/DL 13.7-17.5 L 410) HEMATOCRIT (BEAKER) (test code = 41.2 % 40.1-51.0 411) MEAN CORPUSCULAR VOLUME (BEAKER) 87.5 fL 79.0-92.2 (test code = 753) MEAN CORPUSCULAR HEMOGLOBIN 28.7 pg 25.7-32.2 (BEAKER) (test code = 751) MEAN CORPUSCULAR HEMOGLOBIN CONC 32.8 GM/DL 32.3-36.5 (BEAKER) (test code = 752) RED CELL DISTRIBUTION WIDTH 13.1 % 11.6-14.4 (BEAKER) (test code = 412) PLATELET COUNT (BEAKER) (test 167 K/CU MM 150-450 code = 756) MEAN PLATELET VOLUME (BEAKER) 9.8 fL 9.4-12.4 (test code = 754) NUCLEATED RED BLOOD CELLS 0 /100 WBC 0-0 (BEAKER) (test code = 413) NEUTROPHILS RELATIVE PERCENT 59 % (BEAKER) (test code = 429) LYMPHOCYTES RELATIVE PERCENT 32 % (BEAKER) (test code = 430) MONOCYTES RELATIVE PERCENT 8 % (BEAKER) (test code = 431) EOSINOPHILS RELATIVE PERCENT 0 % (BEAKER) (test code = 432) BASOPHILS RELATIVE PERCENT 0 % (BEAKER) (test code = 437) NEUTROPHILS ABSOLUTE COUNT 2.94 K/ L 1.78-5.38 (BEAKER) (test code = 670) LYMPHOCYTES ABSOLUTE COUNT 1.61 K/ L 1.32-3.57 (BEAKER) (test code = 414) MONOCYTES ABSOLUTE COUNT (BEAKER) 0.40 K/ L 0.30-0.82 (test code = 415) EOSINOPHILS ABSOLUTE COUNT 0.00 K/ L 0.04-0.54 L (BEAKER) (test code = 416) BASOPHILS ABSOLUTE COUNT (BEAKER) 0.01 K/ L 0.01-0.08 (test code = 417) IMMATURE GRANULOCYTES-RELATIVE 1 % 0-1 PERCENT (BEAKER) (test code = 2801) B-TYPE NATRIURETIC FACTOR (BNP)2018-12-21 22:35:00 Test Item Value Reference Range Interpretation Comments B-TYPE NATRIURETIC PEPTIDE (BEAKER) 11 pg/mL 0-100 (test code = 700) TROPONIN [id number] 22:34:00 Test Item Value Reference Range Interpretation Comments TROPONIN I (BEAKER) (test code = 397) < ng/mL 0.00-0.03 Troponin I (TnI) levels must be interpreted in the context of the presenting symptoms and the clinical findings. Elevated TnI levels indicate myocardial damage, but are not specific for ischemic heart disease. Elevated TnI levels are seen in patients with other cardiac conditions (including myocarditis and congestive heart failure), and slight TnI elevations occur in patients with other conditions, including sepsis, renal failure, acidosis, acute neurological disease, and persistent tachyarrhythmia.BASIC METABOLIC [id number] 22:28:00 Test Item Value Reference Range Interpretation Comments SODIUM (BEAKER) 138 meq/L 136-145 (test code = 381) POTASSIUM (BEAKER) 3.8 meq/L 3.5-5.1 (test code = 379) CHLORIDE (BEAKER) 107 meq/L 98-107 (test code = 382) CO2 (BEAKER) (test 23 meq/L 22-29 code = 355) BLOOD UREA NITROGEN 13 mg/dL 7-21 (BEAKER) (test code = 354) CREATININE (BEAKER) 0.73 mg/dL 0.57-1.25 (test code = 358) GLUCOSE RANDOM 104 mg/dL 70-105 (BEAKER) (test code = 652) CALCIUM (BEAKER) 10.0 mg/dL 8.4-10.2 (test code = 697) EGFR (BEAKER) (test mL/min/1.73 INSUFFIC IENT CLINICAL code = 1092) sq m DATA TO CALCULA TE ESTIMATED GFR. [id number] 22:26:00 Test Item Value Reference Range Interpretation Comments MAGNESIUM (BEAKER) (test code = 2.4 mg/dL 1.6-2.6 627) RAD, CHEST, 1 VIEW, NON [id number] 22:26:00Reason for exam:->SHORTNESS OF BREATHFINAL REPORT INDICATION: SHORTNESS OF BREATH COMPARISON: February 10, 2013 TECHNIQUE: Single frontal view of the chest. FINDINGS: Lungs and pleura: Clear lungs. No effusion.Heart and mediastinum: Normal heart size. Unremarkable mediastinal contours.Osseous structures: No acute abnormality.Other: Appearance of sternotomy wires, pulmonary arterial stents and pacer device are unchanged. IMPRESSION: No acute intrathoracic abnormality. Signed: Keyonna Munoz MDReport Verified Date/Time: 12/21/2018 22:26:52 Reading Location: [address] Neuro Reading Room CBC W/PLT COUNT & AUTO [id number] 22:12:00 Test Item Value Reference Range Interpretation Comments WHITE BLOOD CELL COUNT (BEAKER) 6.2 K/ L 3.5-10.5 (test code = 775) RED BLOOD CELL COUNT (BEAKER) 5.29 M/ L 4.63-6.08 (test code = 761) HEMOGLOBIN (BEAKER) (test code = 15.3 GM/DL 13.7-17.5 410) HEMATOCRIT (BEAKER) (test code = 44.8 % 40.1-51.0 411) MEAN CORPUSCULAR VOLUME (BEAKER) 84.7 fL 79.0-92.2 (test code = 753) MEAN CORPUSCULAR HEMOGLOBIN 28.9 pg 25.7-32.2 (BEAKER) (test code = 751) MEAN CORPUSCULAR HEMOGLOBIN CONC 34.2 GM/DL 32.3-36.5 (BEAKER) (test code = 752) RED CELL DISTRIBUTION WIDTH 13.1 % 11.6-14.4 (BEAKER) (test code = 412) PLATELET COUNT (BEAKER) (test 175 K/CU MM 150-450 code = 756) MEAN PLATELET VOLUME (BEAKER) 9.7 fL 9.4-12.4 (test code = 754) NUCLEATED RED BLOOD CELLS 0 /100 WBC 0-0 (BEAKER) (test code = 413) NEUTROPHILS RELATIVE PERCENT 61 % (BEAKER) (test code = 429) LYMPHOCYTES RELATIVE PERCENT 27 % (BEAKER) (test code = 430) MONOCYTES RELATIVE PERCENT 12 % (BEAKER) (test code = 431) EOSINOPHILS RELATIVE PERCENT 0 % (BEAKER) (test code = 432) BASOPHILS RELATIVE PERCENT 0 % (BEAKER) (test code = 437) NEUTROPHILS ABSOLUTE COUNT 3.77 K/ L 1.78-5.38 (BEAKER) (test code = 670) LYMPHOCYTES ABSOLUTE COUNT 1.67 K/ L 1.32-3.57 (BEAKER) (test code = 414) MONOCYTES ABSOLUTE COUNT (BEAKER) 0.77 K/ L 0.30-0.82 (test code = 415) EOSINOPHILS ABSOLUTE COUNT 0.00 K/ L 0.04-0.54 L (BEAKER) (test code = 416) BASOPHILS ABSOLUTE COUNT (BEAKER) 0.00 K/ L 0.01-0.08 L (test code = 417) IMMATURE GRANULOCYTES-RELATIVE 0 % 0-1 PERCENT (BEAKER) (test code = 7409)
[2022-11-27 17:39] LABS: Absolute Lymphocytes (CBC) 0.6 K/uL (0.7-4.9); Hematocrit 43.3 % (39.6-49.0); Lymphocytes % 10.4 % (15.3-44.8); MCV 82.2 fL (80-100); MPV 7.4 fL (7.6-11.3); RBC Red Blood Cell Count 5.27 M/uL (4.33-5.43)
[2022-11-27 17:44] LABS: Albumin 3.9 g/dL (3.4-5.0); Bilirubin Direct 0.1 mg/dL (0-0.2); Bilirubin Total 0.3 mg/dL (0.2-1.0); Magnesium 2.7 mg/dL (1.6-2.4); Potassium 4.3 mmol/L (3.5-5.1); Protein, Total 7.1 g/dL (6.4-8.2)
[2022-11-27] MEDS ORDERED: ONDANSETRON 4 MG/2 ML VIAL ONE (17:46)
[2022-11-27] MEDS ORDERED: NA CHLORIDE 0.9% 1,000 ML ONE (17:46)
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
[2022-11-27 19:19] LABS: Urine Blood Negative (Negative); Urine Glucose Negative (Negative); Urine Protein Negative (Negative); Urine pH 6.5 (5.0-7.0)
[2022-11-27 19:32] LABS: Urine Bacteria <20 /HPF (<20); Urine RBC <5 /HPF (None Seen)
[2022-11-27] MEDS ORDERED: NA CHLORIDE 0.9% 500 ML ONE (19:57)
[2022-11-27] MEDS ORDERED: KETOROLAC 30 MG/ML INJ ONE (19:57)
[2022-11-27 19:58] LABS: SARS-COV-2 RT PCR NEGATIVE (NEGATIVE)
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
[2022-11-27 21:31] VITALS: TEMP 98.3
[2022-11-27 21:35] VITALS: BP 124/77; O2SAT 100
== END 2022-11-27 20:44 | disposition home or self-care (01) ==
LOC: ER 16:07
DX: R11.2 Nausea with vomiting, unspecified (principal); M54.9 Dorsalgia, unspecified; R53.81 Other malaise; R53.83 Other fatigue; Z20.822 Contact with and (suspected) exposure to COVID-19; M54.2 Cervicalgia; F31.9 Bipolar disorder, unspecified; Z88.1 Allergy status to other antibiotic agents; Z88.3 Allergy status to other anti-infective agents; Z88.8 Allergy status to other drugs, medicaments and biological substances; Z91.040 Latex allergy status; Z91.048 Other nonmedicinal substance allergy status
CPT/HCPCS: 85025; 80048; 36415; 83735; 80076; 83690; 0240U; 70450; 72125; 71260; 74177; Q9967; J7040; J7030; J2405; 81003; 81015; 93005; 99284